=== PATIENT | female | born 1950 | race Caucasian/White ===

== ENCOUNTER 2017-06-07 19:04 | Emergency (ER) | payer BC, MEDICARE ==
[2017-06-07] MEDS ORDERED: RX INFO: IV CONTRAST WAS GIVEN 1 EACH MISC MISCELLANE PRN (20:21)
--- NOTE | 2017-06-07 20:26 | ED ---
Trauma HPI - General Chief Complaint: Trauma Stated Complaint: Kicked by Horse Time Seen by Provider: 06/07/17 19:57 Source: patient Mode of arrival: ambulatory Limitations: no limitations - History of Present Illness Initial Comments: This patient is a 61-year-old woman who presents to be evaluated after she was kicked by a horse. The patient states that around 12:30 she was crossing behind her horse and it kicked her in the upper abdomen. She states that she was thrown backwards and did impact the wall of the stall. She did not have loss of consciousness. She is complaining of pain to the bilateral upper quadrants of the abdomen. She is rating the pain as moderately intense, constant, worse with palpation of the abdomen. She has not noted relieving factors. She did take a "222", which is a combination medication of aspirin and codeine, without having much relief. MD Complaint: other Onset/Timin -: hour(s) Loss of Consciousness: no Location: abdomen Consistency: constant Context: animal related injury Associated Symptoms: denies other symptoms Treatments Prior to Arrival: other (222) - Related Data Previous Rx's Medication Instructions Recorded Hydrocodone/Acetaminophen [[place] 1 each PO Q6HR PRN #12 tab 06/07/17 5-325] Allergies Allergy/AdvReac Type Severity Reaction Status Date / Time ibuprofen [From Motrin] Allergy Unknown Verified 06/07/17 19:33 oxaprozin [From Daypro] Allergy Unknown Verified 06/07/17 19:33 Penicillins Allergy Unknown Verified 06/07/17 19:33 Review of Systems ROS Statement: Those systems with pertinent positive or pertinent negative responses have been documented in the HPI. ROS Other: All systems not noted in ROS Statement are negative. Constitutional: Denies: fever, weakness Eyes: Denies: eye pain, vision change ENT: Denies: epistaxis Respiratory: Denies: cough, dyspnea Cardiovascular: Denies: chest pain, palpitations, syncope Gastrointestinal: Reports: abdominal pain. Denies: nausea, vomiting, diarrhea, constipation Genitourinary: Denies: dysuria, hematuria Musculoskeletal: Denies: back pain Skin: Denies: rash Neurological: Denies: headache, weakness, numbness Hematological/Lymphatic: Denies: easy bleeding Past Medical History Past Medical History: No Reported History History of Any Multi-Drug Resistant Organisms: None Reported Past Surgical History: Cholecystectomy, Heart Catheterization With Stent Past Psychological History: Anxiety Smoking Status: Never smoker Past Alcohol Use History: None Reported Past Drug Use History: None Reported General Exam Limitations: no limitations General appearance: alert, in no apparent distress Head exam: Present: atraumatic, normocephalic, normal inspection Eye exam: Present: normal appearance, PERRL, EOMI, scleral icterus, conjunctival injection. Absent: nystagmus ENT exam: Present: normal oropharynx, mucous membranes moist, TM's normal bilaterally, normal external ear exam Neck exam: Present: normal inspection, full ROM. Absent: tenderness Respiratory exam: Present: normal lung sounds bilaterally. Absent: respiratory distress, wheezes, rales, rhonchi, stridor, chest wall tenderness Cardiovascular Exam: Present: regular rate, normal rhythm, normal heart sounds. Absent: systolic murmur, diastolic murmur, rubs, gallop GI/Abdominal exam: Present: soft, tenderness (Bilateral upper quadrants), normal bowel sounds. Absent: distended, guarding, rebound, rigid, mass, pulsatile mass, hernia Extremities exam: Present: normal inspection, normal capillary refill. Absent: pedal edema, calf tenderness Back exam: Present: normal inspection. Absent: tenderness, CVA tenderness (R), CVA tenderness (L), paraspinal tenderness, vertebral tenderness Neurological exam: Present: alert, oriented X3, CN II-XII intact. Absent: motor sensory deficit Skin exam: Present: warm, dry, intact, normal color. Absent: rash Course Vital Signs 06/07/17 06/07/17 06/07/17 19:28 21:13 22:37 Temperature 98.2 F Pulse Rate 85 77 72 Respiratory 18 18 16 Rate Blood Pressure 175/76 154/78 162/82 O2 Sat by Pulse 98 98 96 Oximetry 06/07/17 23:02 Temperature 98.3 F Pulse Rate 83 Respiratory 16 Rate Blood Pressure 159/76 O2 Sat by Pulse 96 Oximetry Medical Decision Making - Lab Data Result diagrams: 06/07/17 20:34 06/07/17 20:34 Lab Results 06/07/17 06/07/17 06/07/17 Range/Units 20:34 20:34 20:34 WBC 8.2 (3.8-10.6) k/uL RBC 4.85 (3.80-5.40) m/uL Hgb 14.6 (11.4-16.0) gm/dL Hct 42.5 (34.0-46.0) % MCV 87.7 (80.0-100.0) fL MCH 30.1 (25.0-35.0) pg MCHC 34.3 (31.0-37.0) g/dL RDW 13.2 (11.5-15.5) % Plt Count 226 (150-450) k/uL Neutrophils % 73 % Lymphocytes % 20 % Monocytes % 4 % Eosinophils % 1 % Basophils % 0 % Neutrophils # 5.9 (1.3-7.7) k/uL Lymphocytes # 1.6 (1.0-4.8) k/uL Monocytes # 0.4 (0-1.0) k/uL Eosinophils # 0.1 (0-0.7) k/uL Basophils # 0.0 (0-0.2) k/uL PT (9.0-12.0) sec INR (<1.2) APTT (22.0-30.0) sec Sodium 143 (137-145) mmol/L Potassium 4.0 (3.5-5.1) mmol/L Chloride 105 (98-107) mmol/L Carbon Dioxide 26 (22-30) mmol/L Anion Gap 12 mmol/L BUN 20 H (7-17) mg/dL Creatinine 0.60 (0.52-1.04) mg/dL Est GFR (CKD-EPI)AfAm >90 (>60 ml/min/1.73 sqM) Est GFR (CKD-EPI)NonAf >90 (>60 ml/min/1.73 sqM) Glucose 100 H (74-99) mg/dL Plasma Lactic Acid Bl[place] 0.8 (0.7-2.0) mmol/L Calcium 9.9 (8.4-10.2) mg/dL Total Bilirubin 0.9 (0.2-1.3) mg/dL AST 26 (14-36) U/L ALT 39 (9-52) U/L Alkaline Phosphatase 66 (38-126) U/L Troponin I (0.000-0.034) ng/mL Total Protein 6.7 (6.3-8.2) g/dL Albumin 4.4 (3.5-5.0) g/dL Urine Color Urine Appearance (Clear) Urine pH (5.0-8.0) Ur Specific [place] (1.001-1.035) Urine Protein (Negative) Urine Glucose (UA) (Negative) Urine Ketones (Negative) Urine Blood (Negative) Urine Nitrite (Negative) Urine Bilirubin (Negative) Urine Urobilinogen (<2.0) mg/dL Ur Leukocyte Esterase (Negative) Serum Alcohol <10 mg/dL Blood Type Blood Type Confirm Blood Type Recheck Antibody Screen Spec Expiration Date 06/07/17 06/07/17 06/07/17 Range/Units 20:34 20:34 20:34 WBC (3.8-10.6) k/uL RBC (3.80-5.40) m/uL Hgb (11.4-16.0) gm/dL Hct (34.0-46.0) % MCV (80.0-100.0) fL MCH (25.0-35.0) pg MCHC (31.0-37.0) g/dL RDW (11.5-15.5) % Plt Count (150-450) k/uL Neutrophils % % Lymphocytes % % Monocytes % % Eosinophils % % Basophils % % Neutrophils # (1.3-7.7) k/uL Lymphocytes # (1.0-4.8) k/uL Monocytes # (0-1.0) k/uL Eosinophils # (0-0.7) k/uL Basophils # (0-0.2) k/uL PT 9.8 (9.0-12.0) sec INR 1.0 (<1.2) APTT 25.7 (22.0-30.0) sec Sodium (137-145) mmol/L Potassium (3.5-5.1) mmol/L Chloride (98-107) mmol/L Carbon Dioxide (22-30) mmol/L Anion Gap mmol/L BUN (7-17) mg/dL Creatinine (0.52-1.04) mg/dL Est GFR (CKD-EPI)AfAm (>60 ml/min/1.73 sqM) Est GFR (CKD-EPI)NonAf (>60 ml/min/1.73 sqM) Glucose (74-99) mg/dL Plasma Lactic Acid [place] (0.7-2.0) mmol/L Calcium (8.4-10.2) mg/dL Total Bilirubin (0.2-1.3) mg/dL AST (14-36) U/L ALT (9-52) U/L Alkaline Phosphatase (38-126) U/L Troponin I <0.012 (0.000-0.034) ng/mL Total Protein (6.3-8.2) g/dL Albumin (3.5-5.0) g/dL Urine Color Urine Appearance (Clear) Urine pH (5.0-8.0) Ur Specific [place] (1.001-1.035) Urine Protein (Negative) Urine Glucose (UA) (Negative) Urine Ketones (Negative) Urine Blood (Negative) Urine Nitrite (Negative) Urine Bilirubin (Negative) Urine Urobilinogen (<2.0) mg/dL Ur Leukocyte Esterase (Negative) Serum Alcohol mg/dL Blood Type A Positive Blood Type Confirm Blood Type Recheck CABO Indicated Antibody Screen NEGATIVE Spec Expiration Date 06/10/2017233306/07/17 06/07/17 Range/Units 20:35 21:42 WBC (3.8-10.6) k/uL RBC (3.80-5.40) m/uL Hgb (11.4-16.0) gm/dL Hct (34.0-46.0) % MCV (80.0-100.0) fL MCH (25.0-35.0) pg MCHC (31.0-37.0) g/dL RDW (11.5-15.5) % Plt Count (150-450) k/uL Neutrophils % % Lymphocytes % % Monocytes % % Eosinophils % % Basophils % % Neutrophils # (1.3-7.7) k/uL Lymphocytes # (1.0-4.8) k/uL Monocytes # (0-1.0) k/uL Eosinophils # (0-0.7) k/uL Basophils # (0-0.2) k/uL PT (9.0-12.0) sec INR (<1.2) APTT (22.0-30.0) sec Sodium (137-145) mmol/L Potassium (3.5-5.1) mmol/L Chloride (98-107) mmol/L Carbon Dioxide (22-30) mmol/L Anion Gap mmol/L BUN (7-17) mg/dL Creatinine (0.52-1.04) mg/dL Est GFR (CKD-EPI)AfAm (>60 ml/min/1.73 sqM) Est GFR (CKD-EPI)NonAf (>60 ml/min/1.73 sqM) Glucose (74-99) mg/dL Plasma Lactic Acid [place] (0.7-2.0) mmol/L Calcium (8.4-10.2) mg/dL Total Bilirubin (0.2-1.3) mg/dL AST (14-36) U/L ALT (9-52) U/L Alkaline Phosphatase (38-126) U/L Troponin I (0.000-0.034) ng/mL Total Protein (6.3-8.2) g/dL Albumin (3.5-5.0) g/dL Urine Color Light Yellow Urine Appearance Clear (Clear) Urine pH 6.5 (5.0-8.0) Ur Specific [place] 1.014 (1.001-1.035) Urine Protein Negative (Negative) Urine Glucose (UA) Negative (Negative) Urine Ketones Negative (Negative) Urine Blood Negative (Negative) Urine Nitrite Negative (Negative) Urine Bilirubin Negative (Negative) Urine Urobilinogen <2.0 (<2.0) mg/dL Ur Leukocyte Esterase Negative (Negative) Serum Alcohol mg/dL Blood Type Blood Type Confirm A Positive Blood Type Recheck Antibody Screen Spec Expiration Date - EKG Data -: EKG Interpreted by [place] EKG shows normal: sinus rhythm, axis (Normal), intervals (Normal), QRS complexes (Normal), ST-T waves (Normal) Rate: normal (Rate 73 bpm) Interpretation: normal EKG Disposition Clinical Impression: Injury to abdominal wall, Mass of uterine adnexa Disposition: HOME SELF-CARE Condition: Fair Instructions: Blunt Abdominal Injury (ED) Additional Instructions: As we discussed, follow-up with the can bander operator for further workup of the adnexal mass that we discussed. Prescriptions: Hydrocodone/Acetaminophen [[place] 5-325] 1 each PO Q6HR PRN #12 tab PRN Reason: Pain Is patient prescribed a controlled substance at d/c from ED?: Yes Referrals: None,Stated [REFERRING] - 1-2 days Cristela Olson DO [Doctor of Osteopathic Medicine] - 1-2 days
[2017-06-07 20:46] LABS: Basophils % (A) 0 %; Eosinophils # (A) 0.1 k/uL (0-0.7); Eosinophils % (A) 1 %; HCT 42.5 % (34.0-46.0); HGB 14.6 gm/dL (11.4-16.0); Lymphocytes # (A) 1.6 k/uL (1.0-4.8); Lymphocytes % (A) 20 %; MCH 30.1 pg (25.0-35.0); MCHC 34.3 g/dL (31.0-37.0); MCV 87.7 fL (80.0-100.0); Mean Platelet Volume 7.4; Monocytes # (A) 0.4 k/uL (0-1.0); Monocytes % (A) 4 %; Neutrophils # (A) 5.9 k/uL (1.3-7.7); Neutrophils % (A) 73 %; Platelet Count 226 k/uL (150-450); RBC 4.85 m/uL (3.80-5.40); RDW 13.2 % (11.5-15.5); WBC 8.2 k/uL (3.8-10.6)
[2017-06-07 20:54] LABS: ALT 39 U/L (9-52); AST 26 U/L (14-36); Albumin 4.4 g/dL (3.5-5.0); Alcohol <10 mg/dL; Alkaline Phosphatase 66 U/L (38-126); Anion Gap 12 mmol/L; Blood Urea Nitrogen 20 mg/dL (7-17); Calcium 9.9 mg/dL (8.4-10.2); Carbon Dioxide 26 mmol/L (22-30); Chloride 105 mmol/L (98-107); Glucose 100 mg/dL (74-99); Partial Thromboplastin Time 25.7 sec (22.0-30.0); Prothrombin Time 9.8 sec (9.0-12.0); Sodium 143 mmol/L (137-145); Total Bilirubin 0.9 mg/dL (0.2-1.3); Total Protein 6.7 g/dL (6.3-8.2)
[2017-06-07 21:52] LABS: Appearance,Urine Clear (Clear); Bilirubin,Urine Negative (Negative); Blood,Urine Negative (Negative); Color,Urine Light Yellow; Glucose,Urine (UA) Negative (Negative); Ketones,Urine Negative (Negative); Leukocyte Esterase,Urine Negative (Negative); Nitrite,Urine Negative (Negative); PH, Urine 6.5 (5.0-8.0); Protein,Urine Negative (Negative); Specific Gravity,Urine 1.014 (1.001-1.035); Urobilinogen,Urine <2.0 mg/dL (<2.0)
--- NOTE | 2017-06-07 22:01 | CT ---
EXAMINATION TYPE: CT abdomen pelvis w con DATE OF EXAM: 06/07/2017 COMPARISON: NONE HISTORY: Mid to lower abdominal pain. CT DLP: 1417 mGycm Automated exposure control for dose reduction was used. TECHNIQUE: Helical acquisition of images was performed from the lung bases through the pelvis. CONTRAST: Performed without Oral Contrast and with IV Contrast, patient injected with 100 mL of Isovue 300. FINDINGS: LUNG BASES: No significant abnormality is appreciated. LIVER/GB: Liver is unremarkable. Surgical clips are identified in the gallbladder fossa. PANCREAS: No significant abnormality is seen. SPLEEN: No significant abnormality is seen. ADRENALS: No significant abnormality is seen. KIDNEYS: No significant abnormality is seen. FREE AIR: No free air is visualized. RETROPERITONEAL ADENOPATHY: None visualized REPRODUCTIVE ORGANS: There is a heterogeneous cystic and solid enhancing mass arising from the superi or right aspect of the uterus. This mass measures 9.0 x 7.0 cm. URINARY BLADDER: No significant abnormality is seen. OSSEOUS STRUCTURES: No significant abnormality is seen. BOWEL: No significant abnormality is seen. OTHER: IMPRESSION: HETEROGENEOUS CYSTIC AND SOLID ENHANCING MASS ARISING FROM THE SUPERIOR ASPECT OF THE UTERUS FELT TO BE A NEOPLASM.
[2017-06-07] MEDS ORDERED: HYDROcodone/APAP 7.5-325MG 1 EACH TAB PO ONE (22:34)
[2017-06-07 22:38] VITALS: RESP 16
[2017-06-07 23:03] VITALS: BP 159/76; PULSE 83; TEMP 98.3
== END 2017-06-07 23:02 | disposition home or self-care (01) ==
LOC: EDBD → EC 19:04
DX: S39.91XA Unspecified injury of abdomen, initial encounter (principal); N85.8 Other specified noninflammatory disorders of uterus; Z88.0 Allergy status to penicillin; Z88.6 Allergy status to analgesic agent; Z90.49 Acquired absence of other specified parts of digestive tract; W55.12XA Struck by horse, initial encounter; Y93.89 Activity, other specified
CPT/HCPCS: 36415; 93005; 86900; 86901; 80053; 83605; 84484; 85025; 85610; 85730; 86850; 81003; 80320; 74177; 99284; Q9967

== ENCOUNTER 2023-05-22 19:46 | Emergency (ER) | payer MEDICARE ==
[2023-05-22 21:24] LABS: Basophils % (A) 0 %; Eosinophils # (A) 0.1 k/uL (0-0.7); Eosinophils % (A) 1 %; HCT 46.6 % (34.0-46.0); HGB 15.1 gm/dL (11.4-16.0); Lymphocytes # (A) 1.8 k/uL (1.0-4.8); Lymphocytes % (A) 22 %; MCH 30.3 pg (25.0-35.0); MCHC 32.5 g/dL (31.0-37.0); MCV 93.4 fL (80.0-100.0); Mean Platelet Volume 7.9; Monocytes # (A) 0.4 k/uL (0-1.0); Monocytes % (A) 4 %; Neutrophils # (A) 5.8 k/uL (1.3-7.7); Neutrophils % (A) 72 %; Platelet Count 219 k/uL (150-450); RBC 4.99 m/uL (3.80-5.40); RDW 13.3 % (11.5-15.5); WBC 8.1 k/uL (3.8-10.6)
[2023-05-22 21:42] LABS: ALT 22 U/L (4-34); AST 26 U/L (14-36); African American GFR (CKD) >90 (>60 ml/min/1.73 sqM); Albumin 4.9 g/dL (3.5-5.0); Alkaline Phosphatase 84 U/L (38-126); Anion Gap 8 mmol/L; Blood Urea Nitrogen 14 mg/dL (7-17); Calcium 10.4 mg/dL (8.4-10.2); Carbon Dioxide 26 mmol/L (22-30); Chloride 107 mmol/L (98-107); Glucose 99 mg/dL (74-99); Non-African American GFR(CKD) >90 (>60 ml/min/1.73 sqM); Potassium 4.1 mmol/L (3.5-5.1); Sodium 141 mmol/L (137-145); Total Bilirubin 1.4 mg/dL (0.2-1.3); Total Protein 7.5 g/dL (6.3-8.2)
[2023-05-22 23:18] LABS: Appearance,Urine Clear (Clear); Bacteria,Urine Rare /hpf; Bilirubin,Urine Negative (Negative); Blood,Urine Negative (Negative); Color,Urine Yellow; Glucose,Urine (UA) Negative (Negative); Hyaline Casts,Urine 3 /lpf (0-2); Ketones,Urine 1+ (Negative); Leukocyte Esterase,Urine Trace (Negative); Mucus,Urine Moderate /hpf; Nitrite,Urine Negative (Negative); Protein,Urine Trace (Negative); RBC,Urine 2 /hpf (0-5); Specific Gravity,Urine 1.021 (1.001-1.035); Squamous Epithelial Cell,Urine <1 /hpf (0-4); Urobilinogen,Urine <2.0 mg/dL (<2.0); WBC,Urine 2 /hpf (0-5)
[2023-05-22 23:44] LABS: Amphetamine Screen,Urine Not Detected (NotDetected); Barbiturate Screen,Urine Not Detected (NotDetected); Benzodiazepines Screen,Urine Not Detected (NotDetected); Cocaine Screen,Urine Not Detected (NotDetected); Methadone Screen, Urine Not Detected (NotDetected); Opiate Screen,Urine Not Detected (NotDetected); Oxycodone Screen, Urine Not Detected (NotDetected); Phencyclidine Screen,Urine Not Detected (NotDetected); Tricyclic Antidepressant,Urine Not Detected (NotDetected); Urn Cannabinoid Scrn Not Detected (NotDetected)
--- NOTE | 2023-05-23 02:02 | ED ---
Psych HPI - General Source: patient Mode of arrival: ambulatory <Martha Ramirez - Last Filed: 05/23/23 02:04> <Chadd Solano - Last Filed: 05/24/23 16:13> - General Chief Complaint: Psychiatric Symptoms Stated Complaint: Mental health Time Seen by Provider: 05/22/23 20:15 - History of Present Illness Initial Comments: 73-year-old female brought in by her sister for mental health evaluation. Patient has been paranoid recently. She believes that people are trying to break into her house or barn. She has called the police several times this week due to this. Patient's sister received a call from the police voicing no concerns. The patient's sister decided to bring her in for evaluation. She has no history of psychiatric illnesses. The patient has manage she is not sleeping well or eating much. Patient denies any suicidal or homicidal ideation. No physical complaints today (Martha Ramirez) - Related Data Home Medications Medication Instructions Recorded Confirmed No Known Home Medications 05/23/23 05/23/23 Allergies Allergy/AdvReac Type Severity Reaction Status Date / Time ibuprofen [From Motrin] Allergy Face Verified 05/23/23 15:54 Swelling oxaprozin [From Daypro] Allergy Unknown Verified 05/23/23 15:54 Penicillins Allergy Face Verified 05/23/23 15:54 Swelling Review of Systems ROS Other: All systems not noted in ROS Statement are negative. <Martha Ramirez - Last Filed: 05/23/23 02:04> ROS Other: All systems not noted in ROS Statement are negative. <Chadd Solano - Last Filed: 05/24/23 16:13> ROS Statement: Those systems with pertinent positive or pertinent negative responses have been documented in the HPI. Past Medical History Past Medical History: No Reported History History of Any Multi-Drug Resistant Organisms: None Reported Past Surgical History: Cholecystectomy, Heart Catheterization With Stent Past Psychological History: Anxiety Smoking Status: Never smoker Past Alcohol Use History: None Reported Past Drug Use History: None Reported <Martha Ramirez - Last Filed: 05/23/23 02:04> General Exam Limitations: no limitations General appearance: alert, in no apparent distress Head exam: Present: atraumatic, normocephalic Eye exam: Present: normal appearance, EOMI Neck exam: Present: normal inspection. Absent: meningismus Respiratory exam: Absent: respiratory distress Cardiovascular Exam: Present: regular rate Neurological exam: Present: alert, oriented X3 Psychiatric exam: Present: normal affect, normal mood Skin exam: Present: warm, dry <Martha Ramirez - Last Filed: 05/23/23 02:04> Course Vital Signs 05/22/23 05/22/23 05/23/23 19:57 23:09 04:00 Temperature 98 F 98.0 F Pulse Rate 96 77 80 Respiratory 20 18 15 Rate Blood Pressure 181/101 181/79 172/75 O2 Sat by Pulse 97 96 97 Oximetry 05/23/23 15:28 Temperature 98.2 F Pulse Rate 52 L Respiratory 14 Rate Blood Pressure 174/82 O2 Sat by Pulse 97 Oximetry Medical Decision Making - Lab Data Result diagrams: 05/22/23 21:16 05/22/23 21:16 <Martha Ramirez - Last Filed: 05/23/23 02:04> - Lab Data Result diagrams: 05/22/23 21:16 05/22/23 21:16 <Chadd Solano - Last Filed: 05/24/23 16:13> - Medical Decision Making Was pt. sent in by a medical professional or institution (, PA, INSERT MOLDING OPERATOR, urgent care, hospital, or [facility]...) When possible be specific @ -No Did you speak to anyone other than the patient for history (EMS, parent, family, police, friend...)? What history was obtained from this source @ -Majority of history obtained from sister Did you review nursing and triage notes (agree or disagree)? Why? @ -I reviewed and agree with nursing and triage notes Were old charts reviewed (outside hosp., previous admission, EMS record, old EKG, old radiological studies, urgent care reports/EKG's, [facility] records)? Report findings @ -No old charts were reviewed Differential Diagnosis (chest pain, altered mental status, abdominal pain women, abdominal pain men, vaginal bleeding, weakness, fever, dyspnea, syncope, headache, dizziness, GI bleed, back pain, seizure, CVA, palpatations, mental health, musculoskeletal)? @ -Differential Mental Health Depression, anxiety, bipolar, psychosis, schizophrenia, borderline personality, situational depression, adjustment disorder, behavioral disorder, brain tumor, malingering, substance abuse, encephalopathy, medication reaction, dementia, hypothyroidism, degenerative neurologic disorder, lupus.... This is not meant to be all-inclusive list EKG interpreted by me (3pts min.). @ -As above X-rays interpreted by me (1pt min.). @ -None done CT interpreted by me (1pt min.). @ -None done U/S interpreted by me (1pt. min.). @ -None done What testing was considered but not performed or refused? (CT, X-rays, U/S, labs)? Why? @ -None What meds were considered but not given or refused? Why? @ -None Did you discuss the management of the patient with other professionals (professionals i.e. , PA, INSERT MOLDING OPERATOR, lab, RT, psych nurse, high school social studies tutor, application integration specialist, teacher, v/stol landing signal officer, director of casework)? Give summary @ -No Was smoking cessation discussed for >3mins.? @ -No Was critical care preformed (if so, how long)? @ -No Were there social determinants of health that impacted care today? How? (Homelessness, low income, unemployed, alcoholism, drug addiction, transportation, low edu. Level, literacy, decrease access to med. care, group home, rehab)? @ -No Was there de-escalation of care discussed even if they declined (Discuss DNR or withdrawal of care, Hospice)? DNR status @ -No What co-morbidities impacted this encounter? (DM, HTN, Smoking, COPD, CAD, Cancer, CVA, ARF, Chemo, Hep., AIDS, mental health diagnosis, sleep apnea, morbid obesity)? @ -None Was patient admitted / discharged? Hospital course, mention meds given and route, prescriptions, significant lab abnormalities, going to OR and other pertinent info. @ -73-year-old female presenting for mental health evaluation. Patient was brought in by her sister. Sister reports that the patient has been increasingly paranoid recently. History and physical exam are conducted. Lab work requires no action. Patient is medically cleared and is awaiting evaluation by EPS in the morning. Patient signed out to my attending. (Martha Ramirez) Was patient admitted / discharged? Hospital course, mention meds given and route, prescriptions, significant lab abnormalities, going to OR and other pertinent info. @ -Patient was signed out to me at 7 AM this morning. I went back into reevaluate the patient I spoke with her she does seem to be paranoid I spoke with EPS they agreed that the patient needs to be admitted patient will be tr shavonferred. I did a clinical certification on this patient. Undiagnosed new problem with uncertain prognosis? @ -No Drug Therapy requiring intensive monitoring for toxicity (Heparin, Nitro, Insulin, Cardizem)? @ -No Were any procedures done? @ -No Diagnosis/symptom? @ -Acute psychosis Acute, or Chronic, or Acute on Chronic? @ -Acute Uncomplicated (without systemic symptoms) or Complicated (systemic symptoms)? @ -Default Side effects of treatment? @ -No Exacerbation, Progression, or Severe Exacerbation? @ -No Poses a threat to life or bodily function? How? (Chest pain, [place], [place], pneumonia, PE, COPD, DKA, ARF, appy, cholecystitis, CVA, Diverticulitis, Homicidal, Suicidal, threat to staff... and all critical care pts) @ -No EKG was done for transfer purposes it was interpreted by myself. EKG shows a sinus rhythm at 66 bpm parable 128 QRS 102 QT interval is 379 QTc is 392. Patient's EKG shows no ST segment ovation or depression (Chadd Solano) - Lab Data Lab Results 05/22/23 05/22/23 05/22/23 Range/Units 21:16 21:16 22:51 WBC 8.1 (3.8-10.6) k/uL RBC 4.99 (3.80-5.40) m/uL Hgb 15.1 (11.4-16.0) gm/dL Hct 46.6 H (34.0-46.0) % MCV 93.4 (80.0-100.0) fL MCH 30.3 (25.0-35.0) pg MCHC 32.5 (31.0-37.0) g/dL RDW 13.3 (11.5-15.5) % Plt Count 219 (150-450) k/uL MPV 7.9 Neutrophils % 72 % Lymphocytes % 22 % Monocytes % 4 % Eosinophils % 1 % Basophils % 0 % Neutrophils # 5.8 (1.3-7.7) k/uL Lymphocytes # 1.8 (1.0-4.8) k/uL Monocytes # 0.4 (0-1.0) k/uL Eosinophils # 0.1 (0-0.7) k/uL Basophils # 0.0 (0-0.2) k/uL Sodium 141 (137-145) mmol/L Potassium 4.1 (3.5-5.1) mmol/L Chloride 107 (98-107) mmol/L Carbon Dioxide 26 (22-30) mmol/L Anion Gap 8 mmol/L BUN 14 (7-17) mg/dL Creatinine 0.54 (0.52-1.04) mg/dL Est GFR (CKD-EPI)AfAm >90 (>60 ml/min/1.73 sqM) Est GFR (CKD-EPI)NonAf >90 (>60 ml/min/1.73 sqM) Glucose 99 (74-99) mg/dL Calcium 10.4 H (8.4-10.2) mg/dL Total Bilirubin 1.4 H (0.2-1.3) mg/dL AST 26 (14-36) U/L ALT 22 (4-34) U/L Alkaline Phosphatase 84 (38-126) U/L Total Protein 7.5 (6.3-8.2) g/dL Albumin 4.9 (3.5-5.0) g/dL Urine Color Yellow Urine Appearance Clear (Clear) Urine pH 6.0 (5.0-8.0) Ur Specific [place] 1.021 (1.001-1.035) Urine Protein Trace H (Negative) Urine Glucose (UA) Negative (Negative) Urine Ketones 1+ H (Negative) Urine Blood Negative (Negative) Urine Nitrite Negative (Negative) Urine Bilirubin Negative (Negative) Urine Urobilinogen <2.0 (<2.0) mg/dL Ur Leukocyte Esterase Trace H (Negative) Urine RBC 2 (0-5) /hpf Urine WBC 2 (0-5) /hpf Ur Squamous Epith Cells <1 (0-4) /hpf Urine Bacteria Rare H (None) /hpf Hyaline Casts 3 H (0-2) /lpf Urine Mucus Moderate H (None) /hpf Urine Opiates Screen Not Detected (NotDetected) Ur Oxycodone Screen Not Detected (NotDetected) Urine Methadone Screen Not Detected (NotDetected) Ur Barbiturates Screen Not Detected (NotDetected) U Tricyclic Antidepress Not Detected (NotDetected) Ur Phencyclidine Scrn Not Detected (NotDetected) Ur Amphetamines Screen Not Detected (NotDetected) U Methamphetamines Scrn Not Detected (NotDetected) U Benzodiazepines Scrn Not Detected (NotDetected) Urine Cocaine Screen Not Detected (NotDetected) U Marijuana (THC) Screen Not Detected (NotDetected) SARS-CoV-2 (PCR) (Not Detectd) 05/23/23 Range/Units 15:36 WBC (3.8-10.6) k/uL RBC (3.80-5.40) m/uL Hgb (11.4-16.0) gm/dL Hct (34.0-46.0) % MCV (80.0-100.0) fL MCH (25.0-35.0) pg MCHC (31.0-37.0) g/dL RDW (11.5-15.5) % Plt Count (150-450) k/uL MPV Neutrophils % % Lymphocytes % % Monocytes % % Eosinophils % % Basophils % % Neutrophils # (1.3-7.7) k/uL Lymphocytes # (1.0-4.8) k/uL Monocytes # (0-1.0) k/uL Eosinophils # (0-0.7) k/uL Basophils # (0-0.2) k/uL Sodium (137-145) mmol/L Potassium (3.5-5.1) mmol/L Chloride (98-107) mmol/L Carbon Dioxide (22-30) mmol/L Anion Gap mmol/L BUN (7-17) mg/dL Creatinine (0.52-1.04) mg/dL Est GFR (CKD-EPI)AfAm (>60 ml/min/1.73 sqM) Est GFR (CKD-EPI)NonAf (>60 ml/min/1.73 sqM) Glucose (74-99) mg/dL Calcium (8.4-10.2) mg/dL Total Bilirubin (0.2-1.3) mg/dL AST (14-36) U/L ALT (4-34) U/L Alkaline Phosphatase (38-126) U/L Total Protein (6.3-8.2) g/dL Albumin (3.5-5.0) g/dL Urine Color Urine Appearance (Clear) Urine pH (5.0-8.0) Ur Specific [place] (1.001-1.035) Urine Protein (Negative) Urine Glucose (UA) (Negative) Urine Ketones (Negative) Urine Blood (Negative) Urine Nitrite (Negative) Urine Bilirubin (Negative) Urine Urobilinogen (<2.0) mg/dL Ur Leukocyte Esterase (Negative) Urine RBC (0-5) /hpf Urine WBC (0-5) /hpf Ur Squamous Epith Cells (0-4) /hpf Urine Bacteria (None) /hpf Hyaline Casts (0-2) /lpf Urine Mucus (None) /hpf Urine Opiates Screen (NotDetected) Ur Oxycodone Screen (NotDetected) Urine Methadone Screen (NotDetected) Ur Barbiturates Screen (NotDetected) U Tricyclic Antidepress (NotDetected) Ur Phencyclidine Scrn (NotDetected) Ur Amphetamines Screen (NotDetected) U Methamphetamines Scrn (NotDetected) U Benzodiazepines Scrn (NotDetected) Urine Cocaine Screen (NotDetected) U Marijuana (THC) Screen (NotDetected) SARS-CoV-2 (PCR) Not Detected (Not Detectd) Disposition <Martha Ramirez - Last Filed: 05/23/23 02:04> <Chadd Solano - Last Filed: 05/24/23 16:13> Clinical Impression: Acute psychosis Disposition: TRANSFER TO PSYCH HOSP/UNIT Referrals: None,Stated [Primary Care Provider] - 1-2 days
--- NOTE | 2023-05-23 14:26 | CT ---
EXAMINATION TYPE: CT brain wo con CT DLP: 1095.4 mGycm, Automated exposure control for dose reduction was used. DATE OF EXAM: 05/23/2023 1:35 PM COMPARISON: None. CLINICAL INDICATION:Female, 73 years old with history of AMS, AMS TECHNIQUE: Brain: Axial CT images of the brain were obtained with coronal and sagittal reformats created and rev iewed. Contrast used: None. Oral contrast used: None. FINDINGS: Brain: Extra-axial spaces: No abnormal extra-axial fluid collections. Ventricular system: Within normal limits Cerebral parenchyma: No acute intraparenchymal hemorrhage or mass effect. The dangelo-white junction is well differentiated. Cerebellum: Unremarkable. Mass effect: No evidence of midline shift. Intracranial vasculature: Atherosclerotic calcifications of the intracranial vessels. Soft tissues: Normal. Calvarium/osseous structures: No depressed skull fracture. Paranasal sinuses and mastoid air cells: Mild scattered paranasal sinus disease. Visualized orbits: Orbital contents are intact. IMPRESSION: No acute intracranial process.
[2023-05-23 15:46] VITALS: BP 174/82; PULSE 52; RESP 14; TEMP 98.2
== END 2023-05-23 22:30 ==
LOC: EC 19:46
DX: F23 Brief psychotic disorder (principal); Z11.52 Encounter for screening for COVID-19; Z88.0 Allergy status to penicillin; Z88.6 Allergy status to analgesic agent
CPT/HCPCS: 36415; 70450; 80053; 80306; 81001; 82075; 85025; 87635; 93005; 99285

== ENCOUNTER 2023-06-11 23:49 | Inpatient (IN) | payer MEDICAID, MEDICARE ==
--- NOTE | 2023-06-12 03:10 | ED ---
Psych HPI - General Chief Complaint: Psychiatric Symptoms Stated Complaint: Alt mental\mental health Time Seen by Provider: 06/11/23 23:59 Source: family, EMS Mode of arrival: EMS Limitations: no limitations - History of Present Illness Initial Comments: This patient is a 73-year-old woman who is brought to have psychiatric evaluation. Most of the history comes from the patient's daughter. She states that the patient had recently been discharged from the hospital on psychiatric medication for problems with delusions. The patient did not take her medications after discharge and over the past couple days, worsening today, has been having delusional thought content. The patient had gone to a neighbor's home and would not return to her house. She told the neighbor that she thought that people were in her house. This went on for approximately 7 hours and eventually culminated in police being called and even the patient's own daughter could not persuade the patient to return home. MD Complaint: other Onset/Timin -: days(s) Associated Psychiatric Symptoms: racing thoughts, delusions History of same: Yes Quality: getting worse Improves With: none Worsens With: none Context: not taking psychiatric medications Associated Symptoms: denies other symptoms - Related Data Home Medications Medication Instructions Recorded Confirmed Cholecalciferol [Vitamin D3 (125 125 mcg PO DAILY 06/12/23 06/13/23 Mcg = 5000 Iu)] amLODIPine [Norvasc] 5 mg PO DAILY 06/12/23 06/13/23 Previous Rx's Medication Instructions Recorded OLANZapine [ZyPREXA] 5 mg PO HS #60 tab 06/17/23 Allergies Allergy/AdvReac Type Severity Reaction Status Date / Time ibuprofen [From Motrin] Allergy Face Verified 06/12/23 08:56 Swelling oxaprozin [From Daypro] Allergy Unknown Verified 06/12/23 08:56 Penicillins Allergy Face Verified 06/12/23 08:56 Swelling Review of Systems ROS Statement: Those systems with pertinent positive or pertinent negative responses have been documented in the HPI. ROS Other: All systems not noted in ROS Statement are negative. Constitutional: Denies: fever Respiratory: Denies: cough, dyspnea Cardiovascular: Denies: chest pain, palpitations, syncope Gastrointestinal: Denies: abdominal pain, vomiting, diarrhea Genitourinary: Denies: dysuria, hematuria Musculoskeletal: Denies: back pain Skin: Denies: rash Neurological: Denies: headache, weakness Psychiatric: Reports: other (Delusional thought content). Denies: depression, homicidal thoughts, suicidal thoughts Past Medical History Past Medical History: No Reported History History of Any Multi-Drug Resistant Organisms: None Reported Past Surgical History: Cholecystectomy, Heart Catheterization With Stent Past Psychological History: Anxiety Smoking Status: Never smoker Past Alcohol Use History: None Reported Past Drug Use History: None Reported General Exam Limitations: altered mental status General appearance: alert, in no apparent distress Head exam: Present: atraumatic, normocephalic Eye exam: Present: normal appearance. Absent: scleral icterus, conjunctival injection ENT exam: Present: normal oropharynx Neck exam: Present: normal inspection Respiratory exam: Present: normal lung sounds bilaterally. Absent: respiratory distress, wheezes, rales, rhonchi, stridor Cardiovascular Exam: Present: regular rate, normal rhythm, normal heart sounds. Absent: systolic murmur, diastolic murmur, rubs, gallop GI/Abdominal exam: Present: soft. Absent: distended, tenderness, guarding, rebound, rigid, mass Extremities exam: Present: normal inspection, normal capillary refill. Absent: pedal edema, calf tenderness Back exam: Present: normal inspection. Absent: CVA tenderness (R), CVA tenderness (L) Neurological exam: Present: alert, CN II-XII intact. Absent: motor sensory deficit Psychiatric exam: Present: manic, other (She does display disorganized thought processes and some paranoid delusional thought content.). Absent: homicidal ideation, suicidal ideation Skin exam: Present: warm, dry, intact, normal color. Absent: rash Course Vital Signs 06/11/23 06/12/23 23:50 09:05 Temperature 98.3 F Pulse Rate 70 92 Respiratory 18 18 Rate Blood Pressure 166/81 149/82 O2 Sat by Pulse 98 99 Oximetry Medical Decision Making - Medical Decision Making Was pt. sent in by a medical professional or institution (, PA, METAL FURNITURE PANEL COVERER, urgent care, hospital, or skilled nursing...) When possible be specific @ -[No] Did you speak to anyone other than the patient for history (EMS, parent, family, police, friend...)? What history was obtained from this source @ -Patient's daughter did contribute history Did you review nursing and triage notes (agree or disagree)? Why? @ -[I reviewed and agree with nursing and triage notes] Were old charts reviewed (outside hosp., previous admission, EMS record, old EKG, old radiological studies, urgent care reports/EKG's, skilled nursing records)? Report findings @ -[No old charts were reviewed] Differential Diagnosis (chest pain, altered mental status, abdominal pain women, abdominal pain men, vaginal bleeding, weakness, fever, dyspnea, syncope, headache, dizziness, GI bleed, back pain, seizure, CVA, palpatations, mental health, musculoskeletal)? @ -[Differential Mental Health Depression, anxiety, bipolar, psychosis, schizophrenia, borderline personality, situational depression, adjustment disorder, behavioral disorder, brain tumor, malingering, substance abuse, encephalopathy, medication reaction, dementia, hypothyroidism, degenerative neurologic disorder, lupus.... This is not meant to be all-inclusive list EKG interpreted by me (3pts min.). @ -[As above] X-rays interpreted by me (1pt min.). @ -[None done] CT interpreted by me (1pt min.). @ -[None done] U/S interpreted by me (1pt. min.). @ -[None done] What testing was considered but not performed or refused? (CT, X-rays, U/S, labs)? Why? @ -[None] What meds were considered but not given or refused? Why? @ -[None] Did you discuss the management of the patient with other professionals (professionals i.e. , PA, METAL FURNITURE PANEL COVERER, lab, RT, psych nurse, healthcare social worker, cognos bi developer, teacher, boat officer, case making machine operator)? Give summary @ -[Case discussed with EPS personnel who saw the patient and discussed with psychiatrist and arranging admission for patient at time of shift change Was smoking cessation discussed for >3mins.? @ -[No] Was critical care preformed (if so, how long)? @ -[No] Were there social determinants of health that impacted care today? How? (Homelessness, low income, unemployed, alcoholism, drug addiction, transportation, low edu. Level, literacy, decrease access to med. care, group home, rehab)? @ -[No] Was there de-escalation of care discussed even if they declined (Discuss DNR or withdrawal of care, Hospice)? DNR status @ -[No] What co-morbidities impacted this encounter? (DM, HTN, Smoking, COPD, CAD, Cancer, CVA, ARF, Chemo, Hep., AIDS, mental health diagnosis, sleep apnea, morbid obesity)? @ -[None] Was patient admitted / discharged? Hospital course, mention meds given and route, prescriptions, significant lab abnormalities, going to OR and other pertinent info. @ -[As above Undiagnosed new problem with uncertain prognosis? @ -[No] Drug Therapy requiring intensive monitoring for toxicity (Heparin, Nitro, Insulin, Cardizem)? @ -[No] Were any procedures done? @ -[No] Diagnosis/symptom? @ -[ acute psychosis Acute, or Chronic, or Acute on Chronic? @ -[d acute Uncomplicated (without systemic symptoms) or Complicated (systemic symptoms)? @ -[Uncomplicated Side effects of treatment? @ -[No] Exacerbation, Progression, or Severe Exacerbation? @ -[No] Poses a threat to life or bodily function? How? (Chest pain, USA, ME, pneumonia, PE, COPD, DKA, ARF, appy, cholecystitis, CVA, Diverticulitis, Homicidal, Suicidal, threat to staff... and all critical care pts) @ -[No] - Lab Data Result diagrams: 06/12/23 03:50 06/12/23 03:50 Lab Results 06/12/23 06/12/23 06/12/23 Range/Units 03:50 03:50 03:50 WBC 9.5 (3.8-10.6) k/uL RBC 5.04 (3.80-5.40) m/uL Hgb 15.4 (11.4-16.0) gm/dL Hct 46.3 H (34.0-46.0) % MCV 92.0 (80.0-100.0) fL MCH 30.6 (25.0-35.0) pg MCHC 33.2 (31.0-37.0) g/dL RDW 13.3 (11.5-15.5) % Plt Count 207 (150-450) k/uL MPV 7.9 Neutrophils % 72 % Lymphocytes % 21 % Monocytes % 4 % Eosinophils % 1 % Basophils % 1 % Neutrophils # 6.8 (1.3-7.7) k/uL Lymphocytes # 2.0 (1.0-4.8) k/uL Monocytes # 0.4 (0-1.0) k/uL Eosinophils # 0.1 (0-0.7) k/uL Basophils # 0.1 (0-0.2) k/uL Sodium 140 (137-145) mmol/L Potassium 4.0 (3.5-5.1) mmol/L Chloride 106 (98-107) mmol/L Carbon Dioxide 29 (22-30) mmol/L Anion Gap 5 mmol/L BUN 13 (7-17) mg/dL Creatinine 0.43 L (0.52-1.04) mg/dL Est GFR (CKD-EPI)AfAm >90 (>60 ml/min/1.73 sqM) Est GFR (CKD-EPI)NonAf >90 (>60 ml/min/1.73 sqM) Glucose 99 (74-99) mg/dL Calcium 10.4 H (8.4-10.2) mg/dL TSH 7.120 H (0.465-4.680) mIU/L Free T4 0.99 (0.78-2.19) ng/dL SARS-CoV-2 (PCR) (Not Detectd) 06/12/23 Range/Units 04:40 WBC (3.8-10.6) k/uL RBC (3.80-5.40) m/uL Hgb (11.4-16.0) gm/dL Hct (34.0-46.0) % MCV (80.0-100.0) fL MCH (25.0-35.0) pg MCHC (31.0-37.0) g/dL RDW (11.5-15.5) % Plt Count (150-450) k/uL MPV Neutrophils % % Lymphocytes % % Monocytes % % Eosinophils % % Basophils % % Neutrophils # (1.3-7.7) k/uL Lymphocytes # (1.0-4.8) k/uL Monocytes # (0-1.0) k/uL Eosinophils # (0-0.7) k/uL Basophils # (0-0.2) k/uL Sodium (137-145) mmol/L Potassium (3.5-5.1) mmol/L Chloride (98-107) mmol/L Carbon Dioxide (22-30) mmol/L Anion Gap mmol/L BUN (7-17) mg/dL Creatinine (0.52-1.04) mg/dL Est GFR (CKD-EPI)AfAm (>60 ml/min/1.73 sqM) Est GFR (CKD-EPI)NonAf (>60 ml/min/1.73 sqM) Glucose (74-99) mg/dL Calcium (8.4-10.2) mg/dL TSH (0.465-4.680) mIU/L Free T4 (0.78-2.19) ng/dL SARS-CoV-2 (PCR) Not Detected (Not Detectd) Disposition Clinical Impression: Acute psychosis Disposition: ADMITTED IP TO THIS [facility] Condition: Stable
[2023-06-12 04:10] LABS: Basophils # (A) 0.1 k/uL (0-0.2); Basophils % (A) 1 %; Eosinophils # (A) 0.1 k/uL (0-0.7); Eosinophils % (A) 1 %; HCT 46.3 % (34.0-46.0); HGB 15.4 gm/dL (11.4-16.0); Lymphocytes % (A) 21 %; MCH 30.6 pg (25.0-35.0); MCHC 33.2 g/dL (31.0-37.0); Mean Platelet Volume 7.9; Monocytes # (A) 0.4 k/uL (0-1.0); Monocytes % (A) 4 %; Neutrophils # (A) 6.8 k/uL (1.3-7.7); Neutrophils % (A) 72 %; Platelet Count 207 k/uL (150-450); RBC 5.04 m/uL (3.80-5.40); RDW 13.3 % (11.5-15.5); WBC 9.5 k/uL (3.8-10.6)
[2023-06-12 04:22] LABS: African American GFR (CKD) >90 (>60 ml/min/1.73 sqM); Anion Gap 5 mmol/L; Blood Urea Nitrogen 13 mg/dL (7-17); Calcium 10.4 mg/dL (8.4-10.2); Carbon Dioxide 29 mmol/L (22-30); Chloride 106 mmol/L (98-107); Glucose 99 mg/dL (74-99); Non-African American GFR(CKD) >90 (>60 ml/min/1.73 sqM); Sodium 140 mmol/L (137-145)
[2023-06-12] MEDS: ZIPRASIDONE 20 MG VIAL IM STA (04:34)
[2023-06-12] MEDS: LORazepam 2 MG/ML INJ IM STA (04:34)
[2023-06-12] MEDS ORDERED: LORazepam 1 MG TAB PO PRN (12:55)
[2023-06-12] MEDS ORDERED: HALOPERIDOL LACTATE 5 MG/ML 1 ML VIAL IM PRN (12:55)
[2023-06-12] MEDS ORDERED: haloperidoL 5 MG TAB PO PRN (12:55)
[2023-06-12] MEDS ORDERED: ACETAMINOPHEN TAB 325 MG TAB PO PRN (12:55)
[2023-06-12] MEDS ORDERED: MAG HYDROX/AL HYDROX/SIMETH 355 ML BOTTLE PO PRN (12:55)
[2023-06-12] MEDS ORDERED: LORazepam 2 MG/ML INJ IM PRN (12:55)
[2023-06-12] MEDS ORDERED: MAGNESIUM HYDROXIDE 2,400 MG/30 ML CUP PO PRN (12:55)
[2023-06-12 13:51] LABS: Appearance,Urine Clear (Clear); Bilirubin,Urine Negative (Negative); Blood,Urine Negative (Negative); Color,Urine Colorless; Glucose,Urine (UA) Negative (Negative); Ketones,Urine Negative (Negative); Leukocyte Esterase,Urine Trace (Negative); Mucus,Urine Few /hpf; Nitrite,Urine Negative (Negative); PH, Urine 6.5 (5.0-8.0); Protein,Urine Negative (Negative); RBC,Urine 1 /hpf (0-5); Specific Gravity,Urine 1.011 (1.001-1.035); Squamous Epithelial Cell,Urine <1 /hpf (0-4); Urobilinogen,Urine <2.0 mg/dL (<2.0); WBC,Urine 1 /hpf (0-5)
[2023-06-12 14:02] LABS: Amphetamine Screen,Urine Not Detected (NotDetected); Barbiturate Screen,Urine Not Detected (NotDetected); Benzodiazepines Screen,Urine Detected (NotDetected); Cocaine Screen,Urine Not Detected (NotDetected); Methadone Screen, Urine Not Detected (NotDetected); Opiate Screen,Urine Not Detected (NotDetected); Oxycodone Screen, Urine Not Detected (NotDetected); Phencyclidine Screen,Urine Not Detected (NotDetected); Tricyclic Antidepressant,Urine Not Detected (NotDetected); Urn Cannabinoid Scrn Not Detected (NotDetected)
[2023-06-12] MEDS: amLODIPine 5 MG TAB PO SCH (14:50)
[2023-06-12] MEDS: amLODIPine 10 MG TAB PO SCH (15:22)
[2023-06-12] MEDS: METOPROLOL SUCCINATE (ER) 50 MG TAB.ER.24H PO SCH (16:04)
[2023-06-12] MEDS: CHOLECALCIFEROL 125 MCG (5000 IU) TABLET PO SCH (16:04)
[2023-06-12] MEDS: QUEtiapine 25 MG TAB PO SCH (21:26)
--- NOTE | 2023-06-12 23:58 | P.CONS ---
History of Present Illness - Reason for Consult Consult date: 06/12/23 - History of Present Illness The patient is a 73-year-old female with a PMH of hypertension and anxiety who had presented to the emergency room accompanied by her family due to strange behavior. As per the patient's family members, she had reportedly been having delusions and was paranoid. She was admitted to the mental health unit where she was seen and evaluated. Patient reports that she has been worried about people trying to break into her house. She denied any physical complaints at the time of interview aside from bilateral lower extremity edema over the past several months. She denied experiencing chest discomfort, shortness breath, fever, chills, cough, nausea, vomiting, abdominal pain, diarrhea. She denied tobacco, alcohol, or substance use. Review of systems: Pertinent positives and negatives as discussed in HPI, a complete review of systems was performed and all other systems are negative. Physical examination: General: non toxic, no distress, appears at stated age, normal weight Derm: no unusual rashes/lesions, no unusual ecchymoses, warm, dry Head: atraumatic, normocephalic, symmetric Eyes: EOMI, no lid lag, anicteric sclera ENT: Nose and ears atraumatic, no thrush, no pharyngeal erythema Neck: trachea midline, supple Mouth: no lip lesion, mucus membranes moist Cardiovascular: S1S2 reg, no murmur, 1+ bilateral lower extremity pitting edema Lungs: CTA bilateral, no rhonchi, no rales , no accessory muscle use Abdominal: soft, nontender to palpation, no guarding Ext: no gross muscle atrophy, no contractures, bilateral lower extremity varicose veins noted Neuro: No gross focal neuro deficits noted Psych: Alert, oriented, paranoid affect Assessment: Bilateral lower extremity edema, likely secondary to varicose veins Chronic conditions: Hypertension Subclinical hypothyroidism Psychosis and paranoia Imaging: None performed Data Review: Laboratory evaluation was remarkable for unremarkable UA and urine toxicology with a TSH 7.120 and free T 0.99 with creatinine 0.43 Plan: Continue with patient's home medication of Norvasc Free T4 within normal limits Check pro-BNP levels Defer management of psychosis and paranoia to the primary psychiatry service Thank you for allowing us to participate in the care of this patient. We will follow peripherally. Do not hesitate to contact us with questions. Someone can be reached from the [facility] hospitalist group at all hours of the day at [phone]. Past Medical History Past Medical History: Hypertension History of Any Multi-Drug Resistant Organisms: None Reported Past Surgical History: Cholecystectomy, Heart Catheterization With Stent Past Anesthesia/Blood Transfusion Reactions: No Reported Reaction Date of Last Stent Placement:: unknown Past Psychological History: Anxiety Smoking Status: Never smoker Past Alcohol Use History: None Reported Past Drug Use History: None Reported Medications and Allergies Home Medications Medication Instructions Recorded Confirmed Type Cholecalciferol [Vitamin D3 (125 125 mcg PO DAILY 06/12/23 06/12/23 History Mcg = 5000 Iu)] Metoprolol Succinate [Toprol XL] 50 mg PO DAILY 06/12/23 06/12/23 History QUEtiapine XR [SEROquel XR] 50 mg PO HS 06/12/23 06/12/23 History amLODIPine [Norvasc] 5 mg PO DAILY 06/12/23 06/12/23 History cloNIDine 0.1 MG/24HR PATCH 1 patch TRANSDERM Q7D 06/12/23 06/12/23 History [Catapres-TTS] Allergies Allergy/AdvReac Type Severity Reaction Status Date / Time ibuprofen [From Motrin] Allergy Face Verified 06/12/23 08:56 Swelling oxaprozin [From Daypro] Allergy Unknown Verified 06/12/23 08:56 Penicillins Allergy Face Verified 06/12/23 08:56 Swelling Physical Exam Vitals: Vital Signs Temp Pulse Pulse Resp BP BP Pulse Ox 06/12/23 16:05 102 H 133/64 06/12/23 15:26 97.7 F 72 18 152/70 06/12/23 15:23 81 119/66 06/12/23 14:17 97.8 F 87 16 142/89 97 06/12/23 09:05 92 18 149/82 99 Intake and Output 06/12/23 06/12/23 06/13/23 14:59 22:59 06:59 Other: Weight 73.1 kg Results CBC & Chem 7: 06/12/23 03:50 06/12/23 03:50 Labs: Abnormal Lab Results - Last 24 Hours (Table) 06/12/23 06/12/23 06/12/23 Range/Units 03:50 03:50 13:14 Hct 46.3 H (34.0-46.0) % Creatinine 0.43 L (0.52-1.04) mg/dL Calcium 10.4 H (8.4-10.2) mg/dL TSH 7.120 H (0.465-4.680) mIU/L Ur Leukocyte Esterase Trace H (Negative) Urine Mucus Few H (None) /hpf U Benzodiazepines Scrn Detected H (NotDetected)
[2023-06-13 06:16] VITALS: RESP 20
[2023-06-13] MEDS ORDERED: OLANZapine 2.5 MG TAB PO PRN (11:45)
[2023-06-13] MEDS ORDERED: OLANZapine 10 MG VIAL IM PRN (11:45)
--- NOTE | 2023-06-13 11:46 | P.HP ---
Psychiatric H&P - . H&P Date: 06/13/23 History & Physical: Allergies Allergy/AdvReac Type Severity Reaction Status Date / Time ibuprofen from Motrin Allergy Face Verified 06/12/23 08:56 Swelling oxaprozin from Daypro Allergy Unknown Verified 06/12/23 08:56 Penicillins Allergy Face Verified 06/12/23 08:56 Swelling Vital Signs Temp 96.8 F L 06/13/23 06:01 Pulse 84 06/13/23 06:01 Resp 20 06/13/23 06:01 BP 135/74 06/13/23 06:01 Pulse Ox 98 06/13/23 06:01 FiO2 Intake & Output 06/12/23 06/13/23 06/13/23 18:59 06:59 18:59 Weight 73.1 kg Laboratory Last Values WBC 9.5 k/uL (3.8-10.6) 06/12/23 03:50 RBC 5.04 m/uL (3.80-5.40) 06/12/23 03:50 Hgb 15.4 gm/dL (11.4-16.0) 06/12/23 03:50 Hct 46.3 % (34.0-46.0) H 06/12/23 03:50 MCV 92.0 fL (80.0-100.0) 06/12/23 03:50 MCH 30.6 pg (25.0-35.0) 06/12/23 03:50 MCHC 33.2 g/dL (31.0-37.0) 06/12/23 03:50 RDW 13.3 % (11.5-15.5) 06/12/23 03:50 Plt Count 207 k/uL (150-450) 06/12/23 03:50 MPV 7.9 06/12/23 03:50 Neutrophils % 72 % 06/12/23 03:50 Lymphocytes % 21 % 06/12/23 03:50 Monocytes % 4 % 06/12/23 03:50 Eosinophils % 1 % 06/12/23 03:50 Basophils % 1 % 06/12/23 03:50 Neutrophils # 6.8 k/uL (1.3-7.7) 06/12/23 03:50 Lymphocytes # 2.0 k/uL (1.0-4.8) 06/12/23 03:50 Monocytes # 0.4 k/uL (0-1.0) 06/12/23 03:50 Eosinophils # 0.1 k/uL (0-0.7) 06/12/23 03:50 Basophils # 0.1 k/uL (0-0.2) 06/12/23 03:50 Sodium 140 mmol/L (137-145) 06/12/23 03:50 Potassium 4.0 mmol/L (3.5-5.1) 06/12/23 03:50 Chloride 106 mmol/L (98-107) 06/12/23 03:50 Carbon Dioxide 29 mmol/L (22-30) 06/12/23 03:50 Anion Gap 5 mmol/L 06/12/23 03:50 BUN 13 mg/dL (7-17) 06/12/23 03:50 Creatinine 0.43 mg/dL (0.52-1.04) L 06/12/23 03:50 Est GFR (CKD-EPI)AfAm >90 (>60 ml/min/1.73 sqM) 06/12/23 03:50 Est GFR (CKD-EPI)NonAf >90 (>60 ml/min/1.73 sqM) 06/12/23 03:50 Glucose 99 mg/dL (74-99) 06/12/23 03:50 Calcium 10.4 mg/dL (8.4-10.2) H 06/12/23 03:50 TSH 7.120 mIU/L (0.465-4.680) H 06/12/23 03:50 Free T4 0.99 ng/dL (0.78-2.19) 06/12/23 03:50 Urine Color Colorless 06/12/23 13:14 Urine Appearance Clear (Clear) 06/12/23 13:14 Urine pH 6.5 (5.0-8.0) 06/12/23 13:14 Ur Specific [place] 1.011 (1.001-1.035) 06/12/23 13:14 Urine Protein Negative (Negative) 06/12/23 13:14 Urine Glucose (UA) Negative (Negative) 06/12/23 13:14 Urine Ketones Negative (Negative) 06/12/23 13:14 Urine Blood Negative (Negative) 06/12/23 13:14 Urine Nitrite Negative (Negative) 06/12/23 13:14 Urine Bilirubin Negative (Negative) 06/12/23 13:14 Urine Urobilinogen <2.0 mg/dL (<2.0) 06/12/23 13:14 Ur Leukocyte Esterase Trace (Negative) H 06/12/23 13:14 Urine RBC 1 /hpf (0-5) 06/12/23 13:14 Urine WBC 1 /hpf (0-5) 06/12/23 13:14 Ur Squamous Epith Cells <1 /hpf (0-4) 06/12/23 13:14 Urine Mucus Few /hpf (None) H 06/12/23 13:14 Urine Opiates Screen Not Detected (NotDetected) 06/12/23 13:14 Ur Oxycodone Screen Not Detected (NotDetected) 06/12/23 13:14 Urine Methadone Screen Not Detected (NotDetected) 06/12/23 13:14 Ur Barbiturates Screen Not Detected (NotDetected) 06/12/23 13:14 U Tricyclic Antidepress Not Detected (NotDetected) 06/12/23 13:14 Ur Phencyclidine Scrn Not Detected (NotDetected) 06/12/23 13:14 Ur Amphetamines Screen Not Detected (NotDetected) 06/12/23 13:14 U Methamphetamines Scrn Not Detected (NotDetected) 06/12/23 13:14 U Benzodiazepines Scrn Detected (NotDetected) H 06/12/23 13:14 Urine Cocaine Screen Not Detected (NotDetected) 06/12/23 13:14 U Marijuana (THC) Screen Not Detected (NotDetected) 06/12/23 13:14 SARS-CoV-2 (PCR) Not Detected (Not Detectd) 06/12/23 04:40 06/13/23 11:21 IDENTIFYING DATA: Patient is a 73 yo female, currently lives alone in a house, she has no kids, she is single HPI: Patient presented to the hospital to the ER yesterday. Patient was recently discharged from [facility] over a week ago. Apparently patient h as not been taking medications according to petition filled out by her sister/guardian. Also states that patient has been agitated paranoid and went over to her neighbor's house for 7 hours and refused to leave. Patient was admitted involuntarily to the mental health unit. She was agreeable to speak with video game script writer today at the bedside. She claims that she has been having "poor memory" and was fairly loose and associations illogical. She had several things written down in her folder was looking through her belongings. She was tangential in her thought process disorganized. She claims that she was "just at [facility]" however did not remember who she saw there, does not remember what medication she on and does not believe that she has any kind of diagnosis or needs medications. She denied any depression or anxiety at this time. Is endorsing paranoia towards others. She is able to correctly identify her name, her location and the date. Was able to spell "world" backwards.. Patient denies any suicidal or homicidal ideations intent or plan. At this time patient denies any auditory or visual hallucinations. Patient denies any flight of ideas racing thoughts and increased in goal directed behavior. Patient admits to using no recreational drugs or cigarettes PAST PSYCHIATRIC HISTORY: Patient denies any previous psychiatric history. Patient was previously on Seroquel however has not been taking it. Patient was just psychiatrically admitted to [facility] in late May. Patient denies any psychiatric outpatient follow-up. Patient denies any history of suicide attempts in the past. Past Medical History: No Reported History History of Any Multi-Drug Resistant Organisms: None Reported Past Surgical History: Cholecystectomy, Heart Catheterization With Stent Past Psychological History: Anxiety Smoking Status: Never smoker Past Alcohol Use History: None Reported Past Drug Use History: None Reported ALLERGIES: as per EMR CHEMICAL DEPENDENCY HISTORY: as per HPI FAMILY PSYCHIATRIC/SUBSTANCE USE HISTORY: Denies SOCIAL HISTORY: Patient was born and raised in [place] [place] [facility]. States that she completed high school and completed her bachelor's degree. 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 Claims that she has never had any legal history. She is single, lives alone in a house, denies having any kids. MENTAL STATUS EXAM: General Appearance: Patient appears to be thin, long white hair, stated age is alert, difficult to redirect, bizarre at times. Patient appears to have fair hygiene and grooming. Behavior: Patient is seated without any agitated behavior. Speech: Patient's speech is fluent and nonpressured. Rambling, tangential Mood/Affect: Patient reports their mood is ok, affect is congruent and constricted. Suicidality/Homicidality: Patient denies having any homicidal ideation intent or plan. Denies any suicidal ideations intent or plan Perceptions: Patient denies any visual hallucinations and denies any auditory hallucinations Though content/process: Associations, illogical. Paranoia. Memory and concentration: AOX3, grossly intact for the purposes of this session. Can spell "WORLD" backwards Judgment and insight: Poor/limited STRENGTHS/WEAKNESSES: strength is that patient is resilient. Weakness is that patient has poor judgment and is impulsive, poor insight INTELLECT: Average IMPRESSIONS: Psychosis unspecified r/o major neurocognitive disorder PLAN: -Patient is admitted under involuntary status to MHU for stabilization of psychiatric symptoms and safety. Patient has not signed adult voluntary form and medication consent and is placed in patient's chart. A second certification was completed and along with petition will be filed for court. -Medications : Patient claims that she does not want to take Seroquel any longer as it is too sedating for her. Will start Prolixin 1 mg twice daily for psychosis/delusions/paranoia. Melatonin 3 mg nightly scheduled for sleep. -zyprexa PRN for agitation/aggression -Patient was informed of the risks, benefits and side effects of the medication -Internal Medicine consult to perform medical evaluation and physical. -NRT -not needed as patient does not smoke -SW on board for discharge planning. Encourage patient to participate in groups to work on coping skills. Will await deferral and court date. 06/13/23 11:39 06/13/23 11:46
[2023-06-13 13:44] LABS: Glucose,Whole Blood 97 mg/dL (70-110)
[2023-06-13 14:27] VITALS: BP 139/72; PULSE 70; TEMP 97.2
[2023-06-13] MEDS ORDERED: MELATONIN 3 MG TABLET PO SCH (21:00)
[2023-06-13] MEDS ORDERED: haloperidoL 1 MG TAB PO SCH (21:00)
[2023-06-13 23:09] LABS: Chol/HDL Ratio 2.33 Ratio; LDL Cholesterol,Calculated 90.2 mg/dL (0.0-131.0); VLDL Calculation 14.36 mg/dL (5.00-40.00)
--- NOTE | 2023-06-15 13:28 | P.DS ---
Providers Date of admission: 06/12/23 12:41 Expected date of discharge: 06/13/23 Attending physician: Daryl Soto MD Consults: 06/12/23 12:55 Consult Physician Routine Consulting Provider: Batool Sullivan Consult Reason/Comments: Medical H&P Do you want consulting provider notified?: Yes Primary care physician: Stated None Hospital Course: Admission HPI: Admission note was completed by fiction writer "patient is a 73 yo female, currently lives alone in a house, she has no kids, she is single. Patient presented to the hospital to the ER yesterday. Patient was recently discharged from [facility] over a week ago. Apparently patient has not been taking medications according to petition filled out by her sister/guardian. Also states that patient has been agitated paranoid and went over to her neighbor's house for 7 hours and refused to leave. Patient was admitted involuntarily to the mental health unit. She was agreeable to speak with fiction writer today at the bedside. She claims that she has been having "poor memory" and was fairly loose and associations illogical. She had several things written down in her folder was looking through her belongings. She was tangential in her thought process disorganized. She claims that she was "just at [facility]" however did not remember who she saw there, does not remember what medication she on and does not believe that she has any kind of diagnosis or needs medications. She denied any depression or anxiety at this time. Is endorsing paranoia towards others. She is able to correctly identify her name, her location and the date. Was able to spell "world" backwards.. Patient denies any suicidal or homicidal ideations intent or plan. At this time patient denies any auditory or visual hallucinations. Patient denies any flight of ideas racing thoughts and increased in goal directed behavior. Patient admits to using no recreational drugs or cigarettes" Hospital course: Upon admission to the unit patient was admitted involuntarily on a petition and certificate and a second certificate was completed and faxed to the courts. Patient ended up signing a deferral with the tax associate attorney and agreeing to treatment. Patient was seen by fiction writer and evaluated and agreeable to try Prolixin p.o. 1 mg twice daily, patient was directable and ended up taking the medication. About an hour or so after taking the medication patient became lightheaded in the dining room and almost fell, she was fairly confused, vital sign instability, and A team was called and patient ended up being transferred to the medical floors for further treatment and monitoring. Mental status exam: As per fiction writer's H&P written on 06/12 Impression: As per fiction writer's H&P written on 06/12 Plan: Patient was discharged today and transferred directly to the medical floors for further monitoring and treatment due to patient's vital sign instability and lightheadedness. Psychiatry will be consulted and will continue to follow along. Patient Condition at Discharge: Stable Plan - Discharge Summary Discharge Rx Participant: No New Discharge Prescriptions: No Action QUEtiapine XR [SEROquel XR] 50 mg PO HS Cholecalciferol [Vitamin D3 (125 Mcg = 5000 Iu)] 125 mcg PO DAILY cloNIDine 0.1 MG/24HR PATCH [Catapres-TTS] 1 patch TRANSDERM Q7D amLODIPine [Norvasc] 5 mg PO DAILY Metoprolol Succinate [Toprol XL] 50 mg PO DAILY Discharge Medication List Cholecalciferol [Vitamin D3 (125 Mcg = 5000 Iu)] 125 mcg PO DAILY 06/12/23 [History] Metoprolol Succinate [Toprol XL] 50 mg PO DAILY 06/12/23 [History] QUEtiapine XR [SEROquel XR] 50 mg PO HS 06/12/23 [History] amLODIPine [Norvasc] 5 mg PO DAILY 06/12/23 [History] cloNIDine 0.1 MG/24HR PATCH [Catapres-TTS] 1 patch TRANSDERM Q7D 06/12/23 [History] Follow up Appointment(s)/Referral(s): None,Stated [Primary Care Provider] - 1-2 days Discharge Disposition: ADMITTED IP TO THIS HOSP
== END 2023-06-13 14:20 | disposition short-term general hospital (02) | DRG 885 ==
LOC: EC 23:49 → EEVIPCON 23:49 → 3MHU 06-12 12:41
PROVIDERS: ADMIT Psychiatry & Neurology Psychiatry; ATTEND Psychiatry & Neurology Psychiatry
DX: F23 Brief psychotic disorder (principal); E03.8 Other specified hypothyroidism; I10 Essential (primary) hypertension; Z11.52 Encounter for screening for COVID-19; R42 Dizziness and giddiness; I83.893 Varicose veins of bilateral lower extremities with other complications; F41.9 Anxiety disorder, unspecified; Z79.899 Other long term (current) drug therapy; Z95.5 Presence of coronary angioplasty implant and graft; Z88.6 Allergy status to analgesic agent; Z88.0 Allergy status to penicillin
CPT/HCPCS: 36415; 80048; 80061; 80306; 81001; 82075; 83036; 83880; 84439; 84443; 85025; 87635; 96372; 99285

== ENCOUNTER 2023-06-13 14:13 | Observation (INO) | payer MEDICARE ==
[2023-06-13] MEDS ORDERED: NALOXONE 0.4 MG/ML 1 ML VIAL IV PRN (16:08)
[2023-06-13] MEDS ORDERED: ACETAMINOPHEN TAB 325 MG TAB PO PRN (16:10)
--- NOTE | 2023-06-13 16:22 | P.HPIM ---
History of Present Illness H&P Date: 06/13/23 Patient is a 73-year-old female with reported history of CAD?, Coronary vasospasm, hypertension, psychotic disorder originally admitted to mental health unit for psychosis. Patient was started on Prolixin. During lunch however on 06/13/2023 patient became unresponsive, heart rate down in the 40s, low blood pressure, blood sugars was in the 90s. Reportedly, this was 1 hour after she received her first dose of Prolixin. Patient quickly recovered, now back to normal. Current temperature 98.3, pulse 69, respiratory 17, blood pressure 142/71, saturating at 98% on room air. Initial EKG shows sinus rhythm. Patient claims that she is had similar symptoms before, and was hospitalized multiple times and was found to have coronary vasospasms. She also talks about " stents" but is unsure whether there were truly placed. 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 Currently she denies any chest pain, shortness of breath, abdominal pain, nausea, vomiting, urinary or bowel complaints. Patient moved out of the mental health unit on 2 over observation unit for further workup and monitoring. Cardiology consulted. Pertinent positives and negatives as discussed in HPI, a complete review of systems was performed and all other systems are negative. Patient seen and examined at bedside. Vital signs reviewed General: nontoxic, no distress, appears at stated age Derm: warm, dry Head: atraumatic, normocephalic, symmetric Eyes: EOMI, no lid lag, anicteric sclera, pupils equal round reactive to light ENT: Nose and ears atraumatic Neck: No thyromegaly, supple Mouth: no lip lesion, mucus membranes moist Cardiovascular: S1S2 reg, no murmur, no edema Lungs: clear to auscultation bilateral, no rhonchi, no rales, no wheeze, no accessory muscle use Abdominal: soft, nontender to palpation, no guarding, no appreciable organomegaly Ext: no gross muscle atrophy, muscle strength muscle strength 5 out of 5 in all 4 extremities, no contractures Neuro: CN II-XII grossly intact Psych: Alert, oriented, appropriate affect Assessment/Plan: Syncope, likely vasovagal History of coronary vasospasm?, Coronary artery disease -Continue to monitor on telemetry -Fall precautions -Orthostatic vitals ordered -Cardiology consulted -Repeat EKG, chest x-ray, echocardiogram pending, troponin and labs pending Psychotic disorder -Psychiatry consulted -Sitter at bedside The patient is admitted with an anticipated less than 2 midnight stay as observation status for evaluation of syncope. Surrogate decision-maker: Guardian CODE STATUS: Full code DVT prophylaxis: Lovenox Anticipated discharge date: Pending clinical course Anticipated discharge place: Inpatient psych A total of 55 minutes was spent on the care of this complex patient more than 50% of the time was spent in counseling and care coordination. Past Medical History Past Medical History: Hypertension History of Any Multi-Drug Resistant Organisms: None Reported Past Surgical History: Cholecystectomy, Heart Catheterization With Stent Past Anesthesia/Blood Transfusion Reactions: No Reported Reaction Date of Last Stent Placement:: unknown Past Psychological History: Anxiety Smoking Status: Never smoker Past Alcohol Use History: None Reported Past Drug Use History: None Reported Medications and Allergies Home Medications Medication Instructions Recorded Confirmed Type Cholecalciferol [Vitamin D3 (125 125 mcg PO DAILY 06/12/23 06/13/23 History Mcg = 5000 Iu)] Metoprolol Succinate [Toprol XL] 50 mg PO DAILY 06/12/23 06/13/23 History QUEtiapine XR [SEROquel XR] 50 mg PO HS 06/12/23 06/13/23 History amLODIPine [Norvasc] 5 mg PO DAILY 06/12/23 06/13/23 History cloNIDine 0.1 MG/24HR PATCH 1 patch TRANSDERM Q7D 06/12/23 06/13/23 History [Catapres-TTS] Allergies Allergy/AdvReac Type Severity Reaction Status Date / Time ibuprofen [From Motrin] Allergy Face Verified 06/12/23 08:56 Swelling oxaprozin [From Daypro] Allergy Unknown Verified 06/12/23 08:56 Penicillins Allergy Face Verified 06/12/23 08:56 Swelling Physical Exam Vitals: Vital Signs Temp Pulse Resp BP Pulse Ox 06/13/23 15:36 98.3 F 69 17 142/71 98
[2023-06-13 16:51] LABS: Basophils % (A) 0 %; Eosinophils # (A) 0.1 k/uL (0-0.7); Eosinophils % (A) 2 %; HCT 44.4 % (34.0-46.0); HGB 14.3 gm/dL (11.4-16.0); Lymphocytes # (A) 1.3 k/uL (1.0-4.8); Lymphocytes % (A) 21 %; MCH 30.3 pg (25.0-35.0); MCHC 32.1 g/dL (31.0-37.0); MCV 94.4 fL (80.0-100.0); Mean Platelet Volume 7.8; Monocytes # (A) 0.3 k/uL (0-1.0); Monocytes % (A) 5 %; Neutrophils # (A) 4.6 k/uL (1.3-7.7); Neutrophils % (A) 71 %; Platelet Count 212 k/uL (150-450); RBC 4.71 m/uL (3.80-5.40); RDW 13.4 % (11.5-15.5); WBC 6.5 k/uL (3.8-10.6)
[2023-06-13 17:02] LABS: ALT 19 U/L (4-34); AST 22 U/L (14-36); African American GFR (CKD) 87 (>60 ml/min/1.73 sqM); Albumin 4.2 g/dL (3.5-5.0); Albumin/Globulin Ratio 1.8; Alkaline Phosphatase 60 U/L (38-126); Anion Gap 7 mmol/L; Blood Urea Nitrogen 18 mg/dL (7-17); Calcium 9.8 mg/dL (8.4-10.2); Carbon Dioxide 30 mmol/L (22-30); Chloride 105 mmol/L (98-107); Globulin 2.3 g/dL; Glucose 107 mg/dL (74-99); Non-African American GFR(CKD) 76 (>60 ml/min/1.73 sqM); Potassium 3.8 mmol/L (3.5-5.1); Sodium 142 mmol/L (137-145); Total Bilirubin 1.1 mg/dL (0.2-1.3); Total Protein 6.5 g/dL (6.3-8.2)
--- NOTE | 2023-06-13 18:18 | XR ---
EXAMINATION TYPE: XR chest 1V DATE OF EXAM: 06/13/2023 COMPARISON: None INDICATION: Incomplete TECHNIQUE: Single frontal view of the chest is obtained. FINDINGS: The heart size is normal. The pulmonary vasculature is normal. The lungs are clear. IMPRESSION: 1. No acute pulmonary process.
[2023-06-13] MEDS: ZOLPIDEM 5 MG TAB PO ONE (22:24)
[2023-06-14] MEDS: ENOXAPARIN 40 MG/0.4 ML SYRINGE SQ SCH (09:36)
--- NOTE | 2023-06-14 12:09 | P.CRDCN ---
History of Present Illness Consult date: 06/14/23 Requesting physician: Juan Zamarripa Reason for Consult (text): syncope Chief complaint: lightheadedness History of present illness: This is a 73-year-old female patient who does not follow regularly with a senior shipping clerk has questionable history of CAD questionable history of vasospasm, hypertension, originally admitted to mental health unit for psychosis as she was reportedly having delusions and paranoia by family. She was started on a new medication Prolixin. Yesterday during lunch she apparently became unresponsive with heart rates in the 40s on the pulse oximeter and blood pressure low. This was apparently 1 hour after receiving her first dose of Prolixin. The patient does not clearly remember the episode but does remember feeling somewhat lightheaded. She denies having any chest discomfort, shortness of breath, lower extremity edema, orthopnea, PND, palpitations, and no other episodes of syncope in the past. She has felt lightheaded in the past when she is felt upset or overly warm and is resolved after sitting down. This episode that happened yesterday occurred while patient was seated in her chair. Patient has been maintaining sinus mechanism with heart rates in the 60s to 80s. Blood pressure has been 120s to 140s systolic. Troponins have been negative x 1 with no significant laboratory abnormalities. She has had no further dizziness, lightheadedness and no further syncope with no further hypotension or bradycardia. In discussing the history of possible CAD with the patient she recalls being started on medical management by a senior shipping clerk about 20 years ago but says she has been recently taken off all of her medications by her primary care physician provider as an outpatient. Past Medical History Past Medical History: Hypertension History of Any Multi-Drug Resistant Organisms: None Reported Past Surgical History: Cholecystectomy, Heart Catheterization With Stent Past Anesthesia/Blood Transfusion Reactions: No Reported Reaction Date of Last Stent Placement:: unknown Past Psychological History: Anxiety Smoking Status: Never smoker Past Alcohol Use History: None Reported Past Drug Use History: None Reported Medications and Allergies Home Medications Medication Instructions Recorded Confirmed Type Cholecalciferol [Vitamin D3 (125 125 mcg PO DAILY 06/12/23 06/13/23 History Mcg = 5000 Iu)] Metoprolol Succinate [Toprol XL] 50 mg PO DAILY 06/12/23 06/13/23 History QUEtiapine XR [SEROquel XR] 50 mg PO HS 06/12/23 06/13/23 History amLODIPine [Norvasc] 5 mg PO DAILY 06/12/23 06/13/23 History cloNIDine 0.1 MG/24HR PATCH 1 patch TRANSDERM Q7D 06/12/23 06/13/23 History [Catapres-TTS] Allergies Allergy/AdvReac Type Severity Reaction Status Date / Time ibuprofen [From Motrin] Allergy Face Verified 06/12/23 08:56 Swelling oxaprozin [From Daypro] Allergy Unknown Verified 06/12/23 08:56 Penicillins Allergy Face Verified 06/12/23 08:56 Swelling Physical Exam Vitals: Vital Signs Temp Pulse Resp BP Pulse Ox 06/14/23 07:00 98.3 F 64 17 129/69 95 06/14/23 02:00 98.1 F 66 18 134/79 98 06/13/23 19:48 98.7 F 82 15 142/78 98 06/13/23 15:36 98.3 F 69 17 142/71 98 Intake and Output 06/13/23 06/14/23 06/14/23 22:59 06:59 14:59 Other: # Voids 1 2 Weight 73.6 kg PHYSICAL EXAMINATION: This is a 73-year-old female in no apparent distress at the time of my examination. VITAL SIGNS: Reviewed HEENT: Head is atraumatic, normocephalic. Pupils are equal, round. Sclerae anicteric. Conjunctivae are clear. Mucous membranes of the mouth are moist. Neck is supple. There is no elevated jugular venous pressure. No carotid bruit is heard. CHEST EXAMINATION: Clear to auscultation bilaterally. No wheezes rales or rhonchi. Respirations even and nonlabored. HEART EXAMINATION: Heart regular, positive S1 and S2. No S3. No S4. Soft systolic murmur. ABDOMEN: Soft, nontender. Bowel sounds are heard. No organomegaly noted. EXTREMITIES: 2+ peripheral pulses with no evidence of peripheral edema and no calf tenderness noted. NEUROLOGIC EXAMINATION: Patient is awake, alert and oriented x3. Results 06/13/23 16:30 06/13/23 16:30 Cardiac Enzymes 06/13/23 06/13/23 Range/Units 16:30 16:30 AST 22 (14-36) U/L Troponin I <0.012 (0.000-0.034) ng/mL CBC 06/13/23 Range/Units 16:30 WBC 6.5 (3.8-10.6) k/uL RBC 4.71 (3.80-5.40) m/uL Hgb 14.3 (11.4-16.0) gm/dL Hct 44.4 (34.0-46.0) % Plt Count 212 (150-450) k/uL Comprehensive Metabolic Panel 06/13/23 Range/Units 16:30 Sodium 142 (137-145) mmol/L Potassium 3.8 (3.5-5.1) mmol/L Chloride 105 (98-107) mmol/L Carbon Dioxide 30 (22-30) mmol/L BUN 18 H (7-17) mg/dL Creatinine 0.79 (0.52-1.04) mg/dL Glucose 107 H (74-99) mg/dL Calcium 9.8 (8.4-10.2) mg/dL AST 22 (14-36) U/L ALT 19 (4-34) U/L Alkaline Phosphatase 60 (38-126) U/L Total Protein 6.5 (6.3-8.2) g/dL Albumin 4.2 (3.5-5.0) g/dL Current Medications Generic Name Dose Route Start Last Admin Trade Name Freq PRN Reason Stop Dose Admin Acetaminophen 650 mg 06/13/23 16:10 Acetaminophen Tab 325 Mg Tab PO Q6HR PRN Mild Pain or Fever > 100.5 Enoxaparin Sodium 40 mg 06/14/23 09:00 06/14/23 09:36 Enoxaparin 40 Mg/0.4 Ml Syringe SQ 40 mg DAILY BINTA Administration Naloxone HCl 0.2 mg 06/13/23 16:08 Naloxone 0.4 Mg/Ml 1 Ml Vial IV Q2M PRN Opioid Reversal Intake and Output 06/13/23 06/14/23 06/14/23 22:59 06:59 14:59 Other: # Voids 1 2 Weight 73.6 kg 06/13/23 16:30 06/13/23 16:30 Assessment and Plan Assessment: #1 syncope #2 acute psychosis with paranoia and delusions #3 reported history of CAD for which the details are unknown #4 hypertension Plan: From cardiology's perspective we will obtain a 2D echo with Doppler study to a ssess cardiac structure and function. We will discontinue clonidine patch. Continue to follow heart rate and blood pressure closely. Episode could have been related to adverse effects of Prolixin or vasovagal episode as patient does recall feeling somewhat upset prior to the event. We will continue to follow the patient and provide further recommendations accordingly. OVERNIGHT CAREGIVER note has been reviewed, I agree with a documented findings and plan of care. Patient was seen and examined.
[2023-06-14] MEDS ORDERED: ONDANSETRON 4 MG/2 ML VIAL IVP PRN (15:04)
[2023-06-14] MEDS ORDERED: MELATONIN 3 MG TABLET PO PRN (15:04)
[2023-06-14] MEDS ORDERED: bisacodyL 5 MG TABLET.DR PO PRN (15:04)
--- NOTE | 2023-06-14 15:07 | P.PN ---
Subjective Progress Note Date: 06/14/23 (delayed charting seen at 0915) Patient is a 73-year-old female who presented from the mental health unit due to syncopal episode that occurred after taking Prolixin. Patient does have a history of coronary vasospasm and hypertension as well as possible coronary artery disease. Patient seen and examined at bedside. She has no complaints at this time. Is feeling well. Denies any lightheadedness, dizziness, chest pain, or shortness of breath. She is very concerned about her lower extremity edema that has been going on for quite some time. Vital signs reviewed General: Nontoxic, no distress, appears at stated age Cardiovascular: S1S2 reg, no murmur Lungs: CTA bilateral, no rhonchi, no rales, no accessory muscle use Abdominal: Soft, nontender to palpation, no guarding Ext: No gross muscle atrophy, no edema b/l lower extremities, no contractures Neuro: CN II-XI grossly intact, no focal neuro deficits Psych: Alert, oriented, appropriate affect Assessment/Plan: Syncope, likely vasovagal Possible history of coronary vasospasm Lower extremity edema -Telemetry reviewed: No significant arrhythmias noted -Check orthostatic vitals -Cardiology consultation reviewed: Discontinue clonidine patch -Await echocardiogram. Concern for possible congestive heart failure -Check BNP in a.m. Hypertension -Patient takes clonidine patch at home. Has been discontinued per cardiology. -Patient takes metoprolol 50 mg daily and amlodipine 5 mg daily at home. Patient's blood pressure currently 138/79 we will continue to hold these medications -Follow blood pressures Imaging: None new Data Review: None new DVT prophylaxis: Lovenox Anticipated discharge date: 24 to [address]: Return to [facility] This dictation was prepared using [email or web address] voice recognition software. Though every attempt is made to correct errors during dictation some may still exist. Objective - Vital Signs Vital signs: Vital Signs Temp 98.9 F 06/14/23 14:38 Pulse 71 06/14/23 14:38 Resp 16 06/14/23 14:38 BP 138/79 06/14/23 14:38 Pulse Ox 97 06/14/23 14:38 FiO2 Intake & Output 06/13/23 06/14/23 06/14/23 18:59 06:59 18:59 Weight 73.6 kg Other: # Voids 2 4 # Bowel Movements 0 - Labs CBC & Chem 7: 06/13/23 16:30 06/13/23 16:30 Labs: Abnormal Lab Results - Last 24 Hours (Table) 06/13/23 Range/Units 16:30 BUN 18 H (7-17) mg/dL Glucose 107 H (74-99) mg/dL
[2023-06-15] MEDS ORDERED: LORazepam 1 MG/0.5 ML VIAL IM STA (04:49)
[2023-06-15] MEDS: HALOPERIDOL LACTATE 5 MG/ML 1 ML VIAL IM STA (05:03)
[2023-06-15] MEDS: LORazepam 2 MG/ML INJ IM STA (05:10)
[2023-06-15] MEDS ORDERED: LORazepam 1 MG/0.5 ML VIAL IV PRN (05:12)
--- NOTE | 2023-06-15 07:27 | P.PN ---
Subjective Progress Note Date: 06/15/23 Principal diagnosis: Syncope The patient is a pleasant 73-year-old female patient with a past medical history significant for hypertension and history of coronary artery disease as well as psychosis who was admitted to the hospital with syncope and underwent further investigation came in to be so far unremarkable. June 15, 2023 The patient was seen and evaluated this morning. She is asymptomatic at this point. The pressure remains elevated and consistent with stage II hypertension with him going to restart the patient back on the blood pressure medications including the amlodipine and metoprolol. An echocardiogram was ordered. Will make sure also and orthostatic blood pressure will be checked. The examination is remarkable for regular rhythm with a soft systolic murmur and clear breathing sounds bilaterally and no carotid bruit and no edema was noted Assessment History of psychiatric disease History of syncope Hypertension not well-controlled Plan Restart the patient back on amlodipine Apparently the patient was bradycardic before she was transferred to the floor. Currently she is slightly tachycardic Follow-up after the echocardiogram Orthostatic blood pressure was checked and came in to be unremarkable Follow-up after the echocardiogram Objective - Vital Signs Vital signs: Vital Signs Temp 98.1 F 06/15/23 00:07 Pulse 109 H 06/15/23 01:03 Resp 16 06/15/23 01:03 BP 175/89 06/15/23 01:03 Pulse Ox 97 06/15/23 01:03 FiO2 Intake & Output 06/14/23 06/15/23 06/15/23 18:59 06:59 18:59 Other: # Voids 4 2 # Bowel Movements 0 - Labs CBC & Chem 7: 06/13/23 16:30 06/13/23 16:30
[2023-06-15 12:35] LABS: HCT 40.7 % (34.0-46.0); HGB 13.7 gm/dL (11.4-16.0); MCH 31.3 pg (25.0-35.0); MCHC 33.6 g/dL (31.0-37.0); MCV 93.2 fL (80.0-100.0); Mean Platelet Volume 7.9; Platelet Count 187 k/uL (150-450); RBC 4.37 m/uL (3.80-5.40); RDW 13.4 % (11.5-15.5); WBC 6.4 k/uL (3.8-10.6)
[2023-06-15 13:19] LABS: African American GFR (CKD) >90 (>60 ml/min/1.73 sqM); Anion Gap 4 mmol/L; Blood Urea Nitrogen 15 mg/dL (7-17); Calcium 9.8 mg/dL (8.4-10.2); Carbon Dioxide 26 mmol/L (22-30); Chloride 108 mmol/L (98-107); Glucose 88 mg/dL (74-99); Non-African American GFR(CKD) >90 (>60 ml/min/1.73 sqM); Potassium 4.2 mmol/L (3.5-5.1); Sodium 138 mmol/L (137-145)
[2023-06-15 13:27] LABS: NT-Pro-B-Type Natriuretic Pept 123 pg/mL
[2023-06-15] MEDS: amLODIPine 5 MG TAB PO SCH (13:37)
[2023-06-15] MEDS ORDERED: OLANZapine 5 MG TAB PO PRN (13:48)
[2023-06-15] MEDS ORDERED: OLANZapine 10 MG VIAL IM PRN (13:48)
--- NOTE | 2023-06-15 13:48 | P.PN ---
Subjective Progress Note Date: 06/15/23 Patient is a 73-year-old female who presented from the mental health unit due to syncopal episode that occurred after taking Prolixin. Patient does have a history of coronary vasospasm and hypertension as well as possible coronary artery disease. Patient seen and examined at bedside. Overnight she was combative, received IM Haldol. No new complaints. Vital signs reviewed General: Nontoxic, no distress, appears at stated age Cardiovascular: S1S2 reg, no murmur Lungs: CTA bilateral, no rhonchi, no rales, no accessory muscle use Abdominal: Soft, nontender to palpation, no guarding Ext: No gross muscle atrophy, no edema b/l lower extremities, no contractures Neuro: CN II-XI grossly intact, no focal neuro deficits Psych: Alert, oriented, appropriate affect Assessment/Plan: Syncope, likely vasovagal Possible history of coronary vasospasm Lower extremity edema -Continue telemetry -Orthostatic vitals were negative -Cardiology note reviewed, echocardiogram pending, restarted on home amlodipine 5 mg Hypertension -Patient takes clonidine patch at home. Has been discontinued per cardiology. -Restarted on home amlodipine 5 mg -Follow blood pressures Psychotic disorder -Psychiatry consulted -If echocardiogram is negative, patient will to be discharged back to inpatient psychiatry. Imaging: None new Data Review: WBC 6.4, hemoglobin 13.7, potassium 4.2, creatinine 0.49 DVT prophylaxis: Lovenox Anticipated discharge date: 24 to [address]: Return to [facility] Objective - Vital Signs Vital signs: Vital Signs Temp 97.7 F 06/15/23 07:00 Pulse 75 06/15/23 13:25 Resp 16 06/15/23 07:00 BP 139/67 06/15/23 13:25 Pulse Ox 96 06/15/23 07:00 FiO2 Intake & Output 06/14/23 06/15/23 06/15/23 18:59 06:59 18:59 Other: # Voids 4 2 # Bowel Movements 0 - Labs CBC & Chem 7: 06/15/23 12:22 06/15/23 12:22 Labs: Abnormal Lab Results - Last 24 Hours (Table) 06/15/23 Range/Units 12:22 Chloride 108 H (98-107) mmol/L Creatinine 0.49 L (0.52-1.04) mg/dL
--- NOTE | 2023-06-15 14:12 | P.CN ---
Psychiatric Consult - . Consult date: 06/15/23 Consult:: 06/15/23 13:31 IDENTIFYING DATA: Patient is a 73 yo female, currently lives alone in a house, she has no kids, she is single Patient was seen today for psychiatric consultation for continuation of care as patient was discharged from the mental health unit to the medical floors on 06/12 due to vital sign instability and lightheadedness. HPI: Patient was initially seen by group underwriter for H&P and as per note dictated on 06/12 "patient presented to the hospital to the ER yesterday. Patient was recently discharged from [facility] over a week ago. Apparently patient has not been taking medications according to petition filled out by her sister/guardian. Also states that patient has been agitated paranoid and went over to her neighbor's house for 7 hours and refused to leave. Patient was admitted involuntarily to the mental health unit. She was agreeable to speak with group underwriter today at the bedside. She claims that she has been having "poor memory" and was fairly loose and associations illogical. She had several things written down in her folder was looking through her belongings. She was tangential in her thought process disorganized. She claims that she was "just at [facility]" however did not remember who she saw there, does not remember what medication she on and does not believe that she has any kind of diagnosis or needs medications. She denied any depression or anxiety at this time. Is endorsing paranoia towards others. She is able to correctly identify her name, her location and the date. Was able to spell "world" backwards.. Patient denies any suicidal or homicidal ideations intent or plan. At this time patient denies any auditory or visual hallucinations. Patient denies any flight of ideas racing thoughts and increased in goal directed behavior. Patient admits to using no recreational drugs or cigarettes". Building Architectural Designer today spoke with patient's nurse who states that patient was agitated yesterday at nighttime, has been delusional and paranoid. Patient apparently attempted to barricade the door into her room and required prn haldol last night IM. Patient apparently slept well after that and woke up this morning according to nurse. Patient was seen today on the medical floors and agreeable to speak to group underwriter. Patient has a one-to-one sitter at her side. She appears to be mildly more pleasant today with group underwriter, continues to ramble, has loose associations illogical. She was fairly focused on obtaining a folder that she has several writings on. She showed me a folder in her bag with several different sentences that were mainly illogical and did not make sense. She appears to have very poor insight poor judgment. She was endorsing paranoia towards others including staff members. At this time she is denying any auditory or visual hallucinations, denying any suicidal homicidal ideations intent or plan. Patient was a fairly poor historian. PAST PSYCHIATRIC HISTORY: Patient denies any previous psychiatric history. Patient was previously on Seroquel however has not been taking it. Patient was just psychiatrically admitted to [facility] in late May. Patient denies any psychiatric outpatient follow-up. Patient denies any history of suicide attempts in the past. Past Medical History: No Reported History History of Any Multi-Drug Resistant Organisms: None Reported Past Surgical History: Cholecystectomy, Heart Catheterization With Stent Past Psychological History: Anxiety Smoking Status: Never smoker Past Alcohol Use History: None Reported Past Drug Use History: None Reported ALLERGIES: as per EMR CHEMICAL DEPENDENCY HISTORY: as per HPI FAMILY PSYCHIATRIC/SUBSTANCE USE HISTORY: Denies SOCIAL HISTORY: Patient was born and raised in [place]. States that she completed high school and completed her bachelor's degree. 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 Claims that she has never had any legal history. She is single, lives alone in a house, denies having any kids. MENTAL STATUS EXAM: General Appearance: Patient appears to be thin, long white hair, stated age is alert, difficult to redirect, bizarre at times. Patient appears to have fair hygiene and grooming. Behavior: Patient is seated without any agitated behavior. Tangential and difficult to redirect Speech: Patient's speech is fluent and nonpressured. Rambling, tangential, bizarre Mood/Affect: Patient reports their mood is ok, affect is congruent and constricted. Suicidality/Homicidality: Patient denies having any homicidal ideation intent or plan. Denies any suicidal ideations intent or plan Perceptions: Patient denies any visual hallucinations and denies any auditory hallucinations Though content/process: Associations, illogical. Paranoia. Bizarre content, focused on her folder Memory and concentration: AOX3, grossly intact for the purposes of this session. Cannot spell "WORLD" backwards Judgment and insight: Poor/limited IMPRESSIONS: Psychosis unspecified likely underlying major neurocognitive disorder PLAN: -At this time patient DOES meet criteria for inpatient geriatric psychiatric admission/transfer once she is medically cleared. Patient is currently involuntary on a Deferral from her previous admission at an outside hospital. patient will need to have demand for hearing filed. -Patient DOES NOT have decision making capacity at this time and is unable to reason through and communicate/appreciate the risks, benefits and alternatives to treatment. -Delirium precautions recommended with patient including - avoiding use of narcotics and MARBLE CHIP TERRAZZO WORKER sedatives, limit anticholinergic medications when possible, frequent re-orientation, minimize use of restraints, open window shades during the day and close them at night -Would recommend the following medication changes/additions: Please avoid giving patient benzodiazepines at this time including Ativan as this may precipitate patient's confusion or cause of fall or paradoxical aggression. Start Zyprexa 2.5 mg nightly scheduled for psychosis/mood stabilization/insomnia. Will give 1 dose of 2.5 mg now. Melatonin nightly as needed for sleep. -Zyprexa p.o. and IM for severe agitation as needed -Continue 1:1 sitter for safety -Cannot leave AMA at this time. Patient will need a petition and certification if attempting to leave AMA. -When medically stable, patient is eligible for transfer to a [facility] when available. -Communicated plan to patient's nurse -Will continue to follow along as needed -Please contact with any questions. 06/15/23 13:50 06/15/23 14:10
[2023-06-15] MEDS: OLANZapine 2.5 MG TAB PO ONE (14:41)
[2023-06-15 19:55] LABS: Glucose,Whole Blood 121 mg/dL (70-110)
[2023-06-15] MEDS: OLANZapine 2.5 MG TAB PO SCH (23:51)
--- NOTE | 2023-06-16 10:11 | P.PN ---
Subjective Progress Note Date: 06/16/23 Principal diagnosis: Syncope The patient is a pleasant 73-year-old female patient with a past medical history significant for hypertension and history of coronary artery disease as well as psychosis who was admitted to the hospital with syncope and underwent further investigation came in to be so far unremarkable. June 15, 2023 The patient was seen and evaluated this morning. She is asymptomatic at this point. The pressure remains elevated and consistent with stage II hypertension with him going to restart the patient back on the blood pressure medications including the amlodipine and metoprolol. An echocardiogram was ordered. Will make sure also and orthostatic blood pressure will be checked. The examination is remarkable for regular rhythm with a soft systolic murmur and clear breathing sounds bilaterally and no carotid bruit and no edema was noted June 16, 2023 The patient was seen and evaluated this morning which she is asymptomatic. The pressure is under better control after she was started on amlodipine. The heart rate has improved and not bradycardic anymore. She stated that she was receiving thyroid replacement therapy but she stopped taking them. Will find out the exact dose and restart back the thyroid medications. Beside that we will obtain TSH and free T4. Echo still pending we will follow-up on that. From a cardiac standpoint of view the patient potentially can be discharged home after the echo results will be back. She might benefit from event monitor as an outpatient or discharged home with an event monitor Assessment History of psychiatric disease History of syncope Hypertension not well-controlled Plan Continue the current medical regimen Avoid any AV gilson re agents TSH and free T4 Follow-up on the echocardiogram The patient potentially can be discharged Objective - Vital Signs Vital signs: Vital Signs Temp 98.5 F 06/16/23 07:00 Pulse 60 06/16/23 07:00 Resp 16 06/16/23 07:00 BP 153/73 06/16/23 07:00 Pulse Ox 97 06/16/23 07:00 FiO2 Intake & Output 06/15/23 06/16/23 06/16/23 18:59 06:59 18:59 Intake Total 400 Balance 400 Intake: Oral 400 Other: # Voids 1 2 - Labs CBC & Chem 7: 06/15/23 12:22 06/15/23 12:22 Labs: Abnormal Lab Results - Last 24 Hours (Table) 06/15/23 06/15/23 Range/Units 12:22 19:53 Chloride 108 H (98-107) mmol/L Creatinine 0.49 L (0.52-1.04) mg/dL POC Glucose (mg/dL) 121 H (70-110) mg/dL
[2023-06-16 12:47] LABS: T4, Free (Free Thyroxine) 1.09 ng/dL (0.78-2.19)
--- NOTE | 2023-06-16 13:02 | CA ---
Transthoracic Echo Report Name: Ryan Leon Age: 73 Gender: F : 1950 Exam Date: 06/15/2023 14:22 Exam Location: [facility] Ht (in): 64 Wt (lb): 162 Ordering Physician: Juan Zamarripa MD Attending/Referring Phys: Clinical Care Coordinator Aubree Mesa RDCS Procedure CPT: Indications: Syncope Cardiac Hx: Technical Quality: Good Contrast 1: Total Dose (mL): Contrast 2: Total Dose (mL): MEASUREMENTS (Male / Female) Normal Values 2D ECHO LV Diastolic Diameter PLAX 4.6 cm 4.2 - 5.9 / 3.9 - 5.3 cm LV Systolic Diameter PLAX 3.2 cm IVS Diastolic Thickness 1.0 cm 0.6 - 1.0 / 0.6 - 0.9 cm LVPW Diastolic Thickness 1.0 cm 0.6 - 1.0 / 0.6 - 0.9 cm LV Relative Wall Thickness 0.4 RV Internal Dim ED PLAX 3.3 cm LA Systolic Diameter LX 3.6 cm 3.0 - 4.0 / 2.7 - 3.8 cm LV Diastolic Volume MOD 4C 94.7 cm??? LV Systolic Volume MOD 4C 36.6 cm??? LV Ejection Fraction MOD 4C 61.4 % LV Cardiac Index MOD 4C 2116.5 cm???/min???m??? LV Diastolic Length 4C 7.8 cm LV Systolic Length 4C 6.2 cm LV Diastolic Volume MOD 2C 113.5 cm??? LV Systolic Volume MOD 2C 47.6 cm??? LV Ejection Fraction MOD 2C 58.1 % LV Cardiac Index MOD 2C 2399.5 cm???/min???m??? LV Diastolic Length 2C 8.2 cm LV Systolic Length 2C 6.4 cm LA Volume 76.7 cm??? 18 - 58 / 22 - 52 cm??? LA Volume Index 41.7 cm???/m??? 16 - 28 cm???/m??? M-MODE Aortic Root Diameter MM 3.2 cm MV E Point Septal Separation 0.4 cm AV Cusp Separation MM 1.9 cm DOPPLER AV Peak Velocity 157.7 cm/s AV Peak Gradient 9.9 mmHg MV Area PHT 3.0 cm??? Mitral E Point Velocity 74.5 cm/s Mitral A Point Velocity 107.9 cm/s Mitral E to A Ratio 0.7 MV Deceleration Time 254.1 ms TR Peak Velocity 244.6 cm/s TR Peak Gradient 23.9 mmHg Right Ventricular Systolic Press 28.6 mmHg FINDINGS Left Ventricle Left ventricular ejection fraction is estimated at 60-65 %. Left ventricular cavity size normal. Left ventricular wall thickness normal. Normal left ventricular wall motion. Right Ventricle Mild right ventricular dilatation. Right ventricular systolic pressure within normal limits. Right Atrium Normal right atrial size. No right atrial thrombus or mass seen. Left Atrium Severely increased left atrial volume. Mitral Valve Structurally normal mitral valve. Trace mitral regurgitation. Aortic Valve Trileaflet aortic valve. No aortic valve stenosis or regurgitation. Tricuspid Valve Structurally normal tricuspid valve. Mild tricuspid regurgitation. Pulmonic Valve Structurally normal pulmonic valve. No pulmonic regurgitation. Pericardium No pericardial effusion. Aorta Normal size aortic root and proximal ascending aorta. CONCLUSIONS Normal LV systolic function Previewed by: Dr. Jorje Flaherty MD (Electronically Signed) Final Date: 16 Jun 2023 13:01
--- NOTE | 2023-06-16 14:05 | P.PN ---
Progress Note - Text Progress Note Date: 06/16/23 Interval History: Patient was seen today for psychiatric follow-up at the bedside. Patient's nu rse states that patient has been doing fairly well today, pleasant and cooperative taking her medications. Patient continues to have a sitter at her bedside. Patient appeared to be fairly pleasant today during conversation, she was smiling, states that she is having some racing thoughts however states that she is feeling overall better, denies any depression or anxiety. Claims that she tolerated the medication well and believes she slept last night. Patient did ramble a bit today, thought process is improving compared to yesterday. Continues to have chronically limited insight and judgment. Has a fair appetite, just finished eating her lunch. She was asking about discharge potentially. She is fairly positive today. Denying any suicidal homicidal ideations intent or plan. Denying any auditory or visual hallucinations. MENTAL STATUS EXAM: General Appearance: Patient appears to be thin, long white hair, stated age is alert, more directable today. Patient appears to have fair hygiene and grooming. Behavior: Patient is seated without any agitated behavior. Tangential, improving mildly Speech: Patient's speech is fluent and nonpressured. Rambling, improving mildly Mood/Affect: Patient reports their mood is "good", affect is congruent and improving affect Suicidality/Homicidality: Patient denies having any homicidal ideation intent or plan. Denies any suicidal ideations intent or plan Perceptions: Patient denies any visual hallucinations and denies any auditory hallucinations Though content/process: Thought content improving, did endorse some racing thoughts, improving. No paranoia today. Memory and concentration: AOX3, grossly intact for the purposes of this session. Cannot spell "WORLD" backwards Judgment and insight: Poor/limited, improving mildly IMPRESSIONS: Psychosis unspecified major neurocognitive disorder PLAN: -At this time patient DOES NOT meet criteria for inpatient geriatric psychiatric admission/transfer. Patient is currently on a Deferral status. -Patient DOES NOT have decision making capacity at this time and is unable to reason through and communicate/appreciate the risks, benefits and alternatives to treatment. Patient currently has a guardian which is her sister. -Delirium precautions recommended with patient including - avoiding use of narcotics and SOFTWARE DEVELOPER MID LEVEL sedatives, limit anticholinergic medications when possible, frequent re-orientation, minimize use of restraints, open window shades during the day and close them at night -Would recommend the following medication changes/additions: Please avoid giving patient benzodiazepines at this time including Ativan as this may precipitate patient's confusion or cause of fall or paradoxical aggression. increased Zyprexa 5 mg nightly scheduled for psychosis/mood stabilization/insomnia. Melatonin nightly as needed for sleep. -Zyprexa p.o. and IM for severe agitation as needed -Continue 1:1 sitter for safety, likely discontinue tomorrow if patient is doing well overnight. -Communicated plan to patient's nurse and SW. -health outreach worker to speak with patient's sister/guardian today about discharge planning likely tomorrow, we feel that it is unsafe for patient to return back h ome and living independently, will be giving guardian the information for long- term placement, assisted living options as patient's condition is chronic and her functioning will likely continue to be impaired -Will continue to follow tomorrow and likely sign off tomorrow. -Please contact with any questions.
--- NOTE | 2023-06-16 14:47 | P.PN ---
Subjective Progress Note Date: 06/16/23 Patient is a 73-year-old female who presented from the mental health unit due to syncopal episode that occurred after taking Prolixin. Patient does have a history of coronary vasospasm and hypertension as well as possible coronary artery disease. Echocardiogram showed normal LV function. Medically stable for discharge. Being followed up by psychiatry. Patient seen and examined at bedside. No acute events overnight. Vital signs reviewed General: Nontoxic, no distress, appears at stated age Cardiovascular: S1S2 reg, no murmur Lungs: CTA bilateral, no rhonchi, no rales, no accessory muscle use Abdominal: Soft, nontender to palpation, no guarding Ext: No gross muscle atrophy, no edema b/l lower extremities, no contractures Neuro: CN II-XI grossly intact, no focal neuro deficits Psych: Alert, oriented, appropriate affect Assessment/Plan: Syncope, likely vasovagal Possible history of coronary vasospasm Lower extremity edema -Continue telemetry -Orthostatic vitals were negative -Cardiology note reviewed, echocardiogram shows normal LV function Hypertension -Patient takes clonidine patch at home. Has been discontinued per cardiology. -Continue on home amlodipine 5 mg -Follow blood pressures Psychotic disorder -Psychiatry note reviewed, recommending possibly discharge tomorrow -Zyprexa 5 IM p.o. nightly, and as needed Elevated TSH -Normal free T4 - repeat in 4-6 weeks. Imaging: None new Data Review: TSH 5.14, free T4 1.09 DVT prophylaxis: Lovenox Anticipated discharge date: pending clinical course Anticipated discharge place: pending clinical course Objective - Vital Signs Vital signs: Vital Signs Temp 98.5 F 06/16/23 07:00 Pulse 68 06/16/23 09:34 Resp 16 06/16/23 09:34 BP 153/73 06/16/23 07:00 Pulse Ox 97 06/16/23 07:00 FiO2 Intake & Output 06/15/23 06/16/23 06/16/23 18:59 06:59 18:59 Intake Total 400 236 Balance 400 236 Intake: Oral 400 236 Other: Voiding Method Toilet # Voids 1 2 3 - Labs CBC & Chem 7: 06/15/23 12:22 06/15/23 12:22 Labs: Abnormal Lab Results - Last 24 Hours (Table) 06/15/23 06/15/23 Range/Units 16:30 19:53 POC Glucose (mg/dL) 121 H (70-110) mg/dL TSH 5.140 H (0.465-4.680) mIU/L
[2023-06-17] MEDS: OLANZapine 5 MG TAB PO SCH (00:11)
[2023-06-17 07:31] VITALS: TEMP 98.4
--- NOTE | 2023-06-17 10:43 | P.PN ---
Subjective HISTORY OF PRESENT ILLNESS: The patient is a pleasant 73-year-old female patient with a past medical history significant for hypertension and history of coronary artery disease as well as psychosis who was admitted to the hospital with syncope and underwent further investigation came in to be so far unremarkable. June 15, 2023 The patient was seen and evaluated this morning. She is asymptomatic at this point. The pressure remains elevated and consistent with stage II hypertension with him going to restart the patient back on the blood pressure medications including the amlodipine and metoprolol. An echocardiogram was ordered. Will make sure also and orthostatic blood pressure will be checked. The examination is remarkable for regular rhythm with a soft systolic murmur and clear breathing sounds bilaterally and no carotid bruit and no edema was noted June 16, 2023 The patient was seen and evaluated this morning which she is asymptomatic. The pressure is under better control after she was started on amlodipine. The heart rate has improved and not bradycardic anymore. She stated that she was receiving thyroid replacement therapy but she stopped taking them. Will find out the exact dose and restart back the thyroid medications. Beside that we will obtain TSH and free T4. Echo still pending we will follow-up on that. Fr om a cardiac standpoint of view the patient potentially can be discharged home after the echo results will be back. She might benefit from event monitor as an outpatient or discharged home with an event monitor 06/16/2023 Patient examined this morning at bedside. Patient denies chest pain or pressu re. She denies shortness of breath. Echocardiogram completed revealing ejection fraction 6065% with trace MR and mild TR. PHYSICAL EXAM: VITAL SIGNS: Reviewed. GENERAL: Well-developed in no acute distress. NECK: Supple. No JVD or thyromegaly LUNGS: Respirations even and unlabored. Lungs essentially clear to auscultation bilaterally. HEART: Regular rate and rhythm. S1 and S2 heard. EXTREMITIES: Normal range of motion. No clubbing or cyanosis. Peripheral pulses intact. No lower extremity edema ASSESSMENT: History of psychiatric disease History of syncope Hypertension not well-controlled PLAN: Continue current cardiac medications Patient is stable for discharge home today from a cardiac standpoint She is to follow-up postdischarge with Dr. Flaherty Will consider event monitor on an outpatient basis We will sign off. Please reconsult if needed. Nurse practitioner note has been reviewed by physician. Signing provider agrees with the documented findings, assessment, and plan of care documented by ENTRY LEVEL INSTALLATION TECHNICIAN as a scribe. Objective - Vital Signs Vital signs: Vital Signs Temp 98.4 F 06/17/23 07:00 Pulse 75 06/17/23 07:00 Resp 14 06/17/23 07:00 BP 145/71 06/17/23 07:00 Pulse Ox 96 06/17/23 07:00 FiO2 Intake & Output 06/16/23 06/17/23 06/17/23 18:59 06:59 18:59 Intake Total 236 Balance 236 Intake: Oral 236 Other: Voiding Method Toilet Toilet # Voids 3 1 - Labs CBC & Chem 7: 06/15/23 12:22 06/15/23 12:22 Labs: Abnormal Lab Results - Last 24 Hours (Table) 06/15/23 Range/Units 16:30 TSH 5.140 H (0.465-4.680) mIU/L
--- NOTE | 2023-06-17 13:24 | P.DS ---
Providers Date of admission: 06/13/23 14:21 Expected date of discharge: 06/17/23 Attending physician: Juan Zamarripa MD Consults: 06/13/23 16:10 Consult Physician Routine Consulting Provider: Daryl Soto Consult Reason/Comments: coming from inpatient psych Do you want consulting provider notified?: Yes Primary care physician: Stated None Hospital Course: Discharge Diagnosis: Syncope, likely vasovagal Lower extremity edema Hypertension Psychotic disorder Elevated TSH Hospital Course: Patient is a 73-year-old female who presented from the mental health unit due to syncopal episode that occurred after taking Prolixin. Patient does have a history of coronary vasospasm and hypertension as well as possible coronary artery disease. Echocardiogram showed normal LV function. Was evaluated by cardiology. Restarted on home amlodipine. Follow-up outpatient with cardiology. Medically stable for discharge. Psychiatry started patient on Zyprexa at night. Follow-up outpatient with behavioral health. She may need further follow-up with [facility]. Patient seen and examined at bedside. Vital signs reviewed and stable. General: Nontoxic, no distress, appears at stated age Derm: Warm, dry Head: Atraumatic, normocephalic, symmetric Eyes: EOMI, no lid lag, anicteric sclera Mouth: No lip lesion, mucus membranes moist Cardiovascular: S1S2 reg, no murmur Lungs: CTA bilateral, no rhonchi, no rales, no accessory muscle use Abdominal: Soft, nontender to palpation, no guarding, no appreciable organomegaly Ext: No gross muscle atrophy, no edema, no contractures Neuro: CN II-XI grossly intact, no focal neuro deficits Psych: Alert, oriented, appropriate affect A total of 33 minutes of time were spent preparing this complex discharge summary. Patient was discharged on 06/17/2023 at 1049. Patient Condition at Discharge: Stable Plan - Discharge Summary Discharge Rx Participant: No New Discharge Prescriptions: New OLANZapine [ZyPREXA] 5 mg PO HS #60 tab Continue Cholecalciferol [Vitamin D3 (125 Mcg = 5000 Iu)] 125 mcg PO DAILY amLODIPine [Norvasc] 5 mg PO DAILY Discontinued QUEtiapine XR [SEROquel XR] 50 mg PO HS cloNIDine 0.1 MG/24HR PATCH [Catapres-TTS] 1 patch TRANSDERM Q7D Metoprolol Succinate [Toprol XL] 50 mg PO DAILY Discharge Medication List Cholecalciferol [Vitamin D3 (125 Mcg = 5000 Iu)] 125 mcg PO DAILY 06/12/23 [History] amLODIPine [Norvasc] 5 mg PO DAILY 06/12/23 [History] OLANZapine [ZyPREXA] 5 mg PO HS #60 tab 06/17/23 [Rx] Follow up Appointment(s)/Referral(s): [facility] [Outside] - As Needed (FELECIA ENNIS - [facility] FACILITY MANAGER - 06.18.23 AT 11:00 AM VICKI BECERRA - [facility] LIMEHOUSE WORKER - 06.25.23 AT 12:00PM) Jorje Flaherty MD [STAFF PHYSICIAN] - 1 Week Eugene Wilkins MD [REFERRING] - 1 Week Patient Instructions/Handouts: Syncope (DC), Psychotic Disorder (DC) Activity/Diet/Wound Care/Special Instructions: Please see [facility] and establish with primary care physician. Discharge/Stand Alone Forms: Area PCPs Discharge Disposition: HOME SELF-CARE
--- NOTE | 2023-06-17 13:51 | P.PN ---
Progress Note - Text Progress Note Date: 06/17/23 Interval History: Patient was seen today for psychiatric follow-up at the bedside. Patient was eating her lunch in her chair. Patient continues to have a sitter at her bedside. She has been taking her medications, claims that the medications have been helping her. She states that she is not having any more racing thoughts, she was fairly directable and appropriate in the thought content. denies any depression or anxiety. Claims that she tolerated the medication well and believes she slept last night. Patient did ramble a bit today, thought process is improving compared to yesterday. Continues to have chronically limited insight and judgment. Has a fair appetite, just finished eating her lunch. Denying any suicidal homicidal ideations intent or plan. Denying any auditory or visual hallucinations. MENTAL STATUS EXAM: General Appearance: Patient appears to be thin, long white hair, stated age is alert, more directable today. Patient appears to have fair hygiene and grooming. Behavior: Patient is seated without any agitated behavior. less Tangential, improving mildly Speech: Patient's speech is fluent and nonpressured. Rambling, improving mildly Mood/Affect: Patient reports their mood is "good", affect is congruent and improving affect Suicidality/Homicidality: Patient denies having any homicidal ideation intent or plan. Denies any suicidal ideations intent or plan Perceptions: Patient denies any visual hallucinations and denies any auditory hallucinations Though content/process: Thought content improving, did endorse some racing thoughts, improving. No paranoia today. Memory and concentration: AOX3, grossly intact for the purposes of this session IMPRESSIONS: Psychosis unspecified major neurocognitive disorder PLAN: -At this time patient DOES NOT meet criteria for inpatient geriatric psychiatric admission/transfer. Patient is currently on a Deferral status. -Patient DOES NOT have decision making capacity at this time and is unable to reason through and communicate/appreciate the risks, benefits and alternatives to treatment. Patient currently has a guardian which is her sister. -Delirium precautions recommended with patient including - avoiding use of narcotics and DAIRY WORKER sedatives, limit anticholinergic medications when possible, frequent re-orientation, minimize use of restraints, open window shades during the day and close them at night -Would recommend the following medication changes/additions: Please avoid giving patient benzodiazepines at this time including Ativan as this may precipitate patient's confusion or cause of fall or paradoxical aggression. Zyprexa 5 mg nightly scheduled for psychosis/mood stabilization/insomnia. Melatonin nightly as needed for sleep. -Zyprexa p.o. and IM for severe agitation as needed -Communicated plan to patient's nurse and SW. -SW spoke with patient's guardian over the phone and will be giving guardian the information for long-term placement, assisted living options as patient's condition is chronic and her functioning will likely continue to be impaired. Patient apparently also has a [facility] appointment tomorrow for psychiatric follow- up. -This time psychiatry will sign off. -Please contact with any questions.
[2023-06-17 14:29] VITALS: BP 143/88; PULSE 95; RESP 16
== END 2023-06-17 17:19 | disposition home or self-care (01) ==
LOC: 6NMEDSUR 14:21 → PREOBSVTOIN 14:41 → PREINTOOBSV 15:20 → 6NMEDSUR 15:21 → UNDOADMOB 15:21
PROVIDERS: ADMIT Student in an Organized Health Care Education/Training Program; ATTEND Student in an Organized Health Care Education/Training Program
DX: R55 Syncope and collapse (principal); M79.89 Other specified soft tissue disorders; I10 Essential (primary) hypertension; F29 Unspecified psychosis not due to a substance or known physiological condition; R79.89 Other specified abnormal findings of blood chemistry; Z79.899 Other long term (current) drug therapy
CPT/HCPCS: 96374; 96375; 96372 ×4; 93306; 84439; 83880; 80053; 80048; 84443; 84484; 85025; 85027; 71045; G0379; G0378 ×5; J2060; J1630; J1650 ×4

== ENCOUNTER 2023-06-26 18:55 | Inpatient (IN) | payer MEDICARE ==
--- NOTE | 2023-06-26 19:58 | ED ---
Psych HPI <Jorge Beebe - Last Filed: 06/27/23 13:26> - General Source: patient, family, EMS, RN notes reviewed, old records reviewed Mode of arrival: EMS Limitations: altered mental status, physical limitation - History of Present Illness MD Complaint: altered mental status, other (Psychosis) -: unknown Associated Psychiatric Symptoms: racing thoughts, auditory hallucinations, visual hallucinations, delusions History of same: Yes Quality: constant Improves With: none Worsens With: none Context: significant life stressor Associated Symptoms: denies other symptoms Treatments Prior to Arrival: placed on mental health hold <Chadd Han - Last Filed: 07/04/23 21:07> - General Chief Complaint: Psychiatric Symptoms Stated Complaint: Psychiatric Time Seen by Provider: 06/26/23 19:48 - History of Present Illness Initial Comments: This is a 73-year-old female to the ER for evaluation of acute psychosis, patient is very concerned with horses, her dog dying, very paranoid that people are coming to get her. Patient was found wandering the neighborhood wandering in the [facility] (Chadd Han) - Related Data Home Medications Medication Instructions Recorded Confirmed Cholecalciferol [Vitamin D3 (125 125 mcg PO DAILY 06/12/23 06/26/23 Mcg = 5000 Iu)] amLODIPine [Norvasc] 5 mg PO DAILY 06/12/23 06/26/23 OLANZapine [ZyPREXA] 2.5 mg PO DAILY PRN 06/26/23 06/26/23 Previous Rx's Medication Instructions Recorded OLANZapine [ZyPREXA] 5 mg PO HS #60 tab 06/17/23 Allergies Allergy/AdvReac Type Severity Reaction Status Date / Time ibuprofen [From Motrin] Allergy Face Verified 06/26/23 20:26 Swelling oxaprozin [From Daypro] Allergy Unknown Verified 06/26/23 20:26 Penicillins Allergy Face Verified 06/26/23 20:26 Swelling Review of Systems ROS Other: All systems not noted in ROS Statement are negative. <Jorge Beebe - Last Filed: 06/27/23 13:26> ROS Other: All systems not noted in ROS Statement are negative. <Chadd Han - Last Filed: 07/04/23 21:07> ROS Statement: Those systems with pertinent positive or pertinent negative responses have been documented in the HPI. Past Medical History Past Medical History: Hypertension History of Any Multi-Drug Resistant Organisms: None Reported Past Surgical History: Cholecystectomy, Heart Catheterization With Stent Past Anesthesia/Blood Transfusion Reactions: No Reported Reaction Date of Last Stent Placement:: unknown Past Psychological History: Anxiety, Depression, Schizophrenia Smoking Status: Never smoker Past Alcohol Use History: Rare Past Drug Use History: Marijuana <Chadd Han - Last Filed: 07/04/23 21:07> General Exam Limitations: no limitations, altered mental status General appearance: alert, in no apparent distress Head exam: Present: atraumatic, normocephalic, normal inspection Eye exam: Present: normal appearance, PERRL, EOMI. Absent: scleral icterus, conjunctival injection, periorbital swelling ENT exam: Present: normal exam, mucous membranes moist Neck exam: Present: normal inspection. Absent: tenderness, meningismus, lymphadenopathy Respiratory exam: Present: normal lung sounds bilaterally. Absent: respiratory distress, wheezes, rales, rhonchi, stridor Cardiovascular Exam: Present: regular rate, normal rhythm, normal heart sounds. Absent: systolic murmur, diastolic murmur, rubs, gallop, clicks GI/Abdominal exam: Present: soft, normal bowel sounds. Absent: distended, tenderness, guarding, rebound, rigid Extremities exam: Present: normal inspection, full ROM, normal capillary refill. Absent: tenderness, pedal edema, joint swelling, calf tenderness Back exam: Present: normal inspection Neurological exam: Present: alert, oriented X3, CN II-XII intact Psychiatric exam: Present: normal affect, normal mood Skin exam: Present: warm, dry, intact, normal color. Absent: rash <Chadd Han - Last Filed: 07/04/23 21:07> Course <Chadd Han - Last Filed: 07/04/23 21:07> Vital Signs 06/26/23 06/27/23 19:03 07:51 Temperature 98.4 F 98 F Pulse Rate 88 79 Respiratory 18 18 Rate Blood Pressure 194/91 129/70 O2 Sat by Pulse 95 98 Oximetry - Reevaluation(s) Reevaluation #1: 06/26/23 22:58 Records reviewed (Chadd Han) Reevaluation #2: 06/26/23 22:58 Medically cleared for psychiatric evaluation (Chadd Han) Reevaluation #3: Was pt. sent in by a medical professional or institution (GRANT Diego, DEVELOPMENTAL PSYCHOLOGIST, urgent care, hospital, or skilled nursing...) When possible be specific @ -no Did you speak to anyone other than the patient for history (EMS, parent, family, police, friend...)? What history was obtained from this source @ -no Did you review nursing and triage notes (agree or disagree)? Why? @ -agree Are old charts reviewed (outside hosp., previous admission, EMS record, old EKG, old radiological studies, urgent care reports/EKG's, skilled nursing records)? Report findings @ -yes Differential Diagnosis (chest pain, altered mental status, abdominal pain women, abdominal pain men, vaginal bleeding, weakness, fever, dyspnea, syncope, headach e, dizziness, GI bleed, back pain, seizure, CVA, palpatations, mental health, musculoskeletal)? @ -prior EKG interpreted by me (3pts min.). @ -no X-rays interpreted by me (1pt min.). @ -no CT interpreted by me (1pt min.). @ -no U/S interpreted by me (1pt. min.). @ -no What testing was considered but not performed or refused? (CT, X-rays, U/S, labs)? Why? @ -none What meds were considered but not given or refused? Why? @ -none Did you discuss the management of the patient with other professionals (professionals i.e. GRANT Diego, DEVELOPMENTAL PSYCHOLOGIST, lab, RT, psych nurse, long term care social worker, marketing strategy lead, teacher, commercial loan officer, case mgr)? Give summary @ -no Was smoking cessation discussed for >3mins.? @ -no Was critical care preformed (if so, how long)? @ -no Were there social determinants of health that impacted care today? How? (Homelessness, low income, unemployed, alcoholism, drug addiction, transpor tation, low edu. Level, literacy, decrease access to med. care, penitentiary, rehab)? @ -none Was there de-escalation of care discussed even if they declined (Discuss DNR or withdrawal of care, Hospice)? DNR status @ -no What co-morbidities impacted this encounter? (DM, HTN, Smoking, COPD, CAD, Cancer, CVA, ARF, Chemo, Hep., AIDS, mental health diagnosis, sleep apnea, morbid obesity)? @ -none Was patient admitted / discharged? Hospital course, mention meds given and route, prescriptions, significant lab abnormalities, going to OR and other pertinent info. @ -73 female will need to be admitted for psychiatric evaluation and treatment Undiagnosed new problem with uncertain prognosis? @ -no Drug Therapy requiring intensive monitoring for toxicity (Heparin, Nitro, Insulin, Cardizem)? @ -no Were any procedures done? @ -no Diagnosis/symptom? @ -Acute psychosis Acute, or Chronic, or Acute on Chronic? @ -Acute Uncomplicated (without systemic symptoms) or Complicated (systemic symptoms)? @ -Complicated Side effects of treatment? @ -no Exacerbation, Progression, or Severe Exacerbation? @ -exacerbation Poses a threat to life or bodily function? How? (Chest pain, [place], [place], pneumonia, PE, COPD, DKA, ARF, appy, cholecystitis, CVA, Diverticulitis, Homicidal, Suicidal, threat to staff... and all critical care pts) @ -yes with extremes of age (Chadd Han) Reevaluation #4: Differential Altered Mental Status: Hypoglycemia, DKA, hypercapnia, ETOH, overdose, CO poisoning, trauma, myxedema coma, HTN encephalopathy, infection, encephalitis, psychosis, intercranial hemorrhage, hepatic encephalopathy, meningitis, CVA, this is not meant to be an all-inclusive list (Chadd Han) Medical Decision Making - Lab Data Result diagrams: 06/26/23 22:01 06/26/23 22:01 <Jorge Beebe - Last Filed: 06/27/23 13:26> - Lab Data Result diagrams: 06/26/23 22:01 06/28/23 05:34 <Chadd Han - Last Filed: 07/04/23 21:07> - Medical Decision Making I did discuss case with mental health nurse. They did state patient would not be admitted without neurology evaluation. I did speak with Dr. Narvaez and he does clear patient for psychiatric admission. Patient will be admitted to psychiatric floor. Diagnosis: Acute psychosis (Jorge Beebe) 73 female is psychiatric patient (Chadd Han) - Lab Data Lab Results 06/26/23 06/26/23 06/26/23 Range/Units 22:01 22:01 22:27 WBC 7.3 (3.8-10.6) k/uL RBC 4.67 (3.80-5.40) m/uL Hgb 14.1 (11.4-16.0) gm/dL Hct 43.4 (34.0-46.0) % MCV 92.9 (80.0-100.0) fL MCH 30.2 (25.0-35.0) pg MCHC 32.5 (31.0-37.0) g/dL RDW 13.8 (11.5-15.5) % Plt Count 204 (150-450) k/uL MPV 8.1 Neutrophils % 58 % Lymphocytes % 33 % Monocytes % 6 % Eosinophils % 2 % Basophils % 1 % Neutrophils # 4.2 (1.3-7.7) k/uL Lymphocytes # 2.4 (1.0-4.8) k/uL Monocytes # 0.4 (0-1.0) k/uL Eosinophils # 0.1 (0-0.7) k/uL Basophils # 0.1 (0-0.2) k/uL Sodium 140 (137-145) mmol/L Potassium 3.6 (3.5-5.1) mmol/L Chloride 109 H (98-107) mmol/L Carbon Dioxide 23 (22-30) mmol/L Anion Gap 8 mmol/L BUN 11 (7-17) mg/dL Creatinine 0.48 L (0.52-1.04) mg/dL Est GFR (CKD-EPI)AfAm >90 (>60 ml/min/1.73 sqM) Est GFR (CKD-EPI)NonAf >90 (>60 ml/min/1.73 sqM) Glucose 126 H (74-99) mg/dL Calcium 9.9 (8.4-10.2) mg/dL Phosphorus 3.4 (2.5-4.5) mg/dL Magnesium 2.1 (1.6-2.3) mg/dL Total Bilirubin 1.5 H (0.2-1.3) mg/dL AST 24 (14-36) U/L ALT 27 (4-34) U/L Alkaline Phosphatase 76 (38-126) U/L Ammonia 13 (<30) umol/L Total Protein 6.8 (6.3-8.2) g/dL Albumin 4.3 (3.5-5.0) g/dL TSH 8.690 H (0.465-4.680) mIU/L Urine Color Urine Appearance (Clear) Urine pH (5.0-8.0) Ur Specific [place] (1.001-1.035) Urine Protein (Negative) Urine Glucose (UA) (Negative) Urine Ketones (Negative) Urine Blood (Negative) Urine Nitrite (Negative) Urine Bilirubin (Negative) Urine Urobilinogen (<2.0) mg/dL Ur Leukocyte Esterase (Negative) Urine RBC (0-5) /hpf Urine WBC (0-5) /hpf Ur Squamous Epith Cells (0-4) /hpf Urine Mucus (None) /hpf Salicylates <1.0 mg/dL Urine Opiates Screen (NotDetected) Ur Oxycodone Screen (NotDetected) Urine Methadone Screen (NotDetected) Acetaminophen <10.0 ug/mL Ur Barbiturates Screen (NotDetected) U Tricyclic Antidepress (NotDetected) Ur Phencyclidine Scrn (NotDetected) Ur Amphetamines Screen (NotDetected) U Methamphetamines Scrn (NotDetected) U Benzodiazepines Scrn (NotDetected) Urine Cocaine Screen (NotDetected) U Marijuana (THC) Screen (NotDetected) Serum Alcohol <10 mg/dL SARS-CoV-2 (PCR) (Not Detectd) 06/27/23 06/27/23 Range/Units 05:54 14:19 WBC (3.8-10.6) k/uL RBC (3.80-5.40) m/uL Hgb (11.4-16.0) gm/dL Hct (34.0-46.0) % MCV (80.0-100.0) fL MCH (25.0-35.0) pg MCHC (31.0-37.0) g/dL RDW (11.5-15.5) % Plt Count (150-450) k/uL MPV Neutrophils % % Lymphocytes % % Monocytes % % Eosinophils % % Basophils % % Neutrophils # (1.3-7.7) k/uL Lymphocytes # (1.0-4.8) k/uL Monocytes # (0-1.0) k/uL Eosinophils # (0-0.7) k/uL Basophils # (0-0.2) k/uL Sodium (137-145) mmol/L Potassium (3.5-5.1) mmol/L Chloride (98-107) mmol/L Carbon Dioxide (22-30) mmol/L Anion Gap mmol/L BUN (7-17) mg/dL Creatinine (0.52-1.04) mg/dL Est GFR (CKD-EPI)AfAm (>60 ml/min/1.73 sqM) Est GFR (CKD-EPI)NonAf (>60 ml/min/1.73 sqM) Glucose (74-99) mg/dL Calcium (8.4-10.2) mg/dL Phosphorus (2.5-4.5) mg/dL Magnesium (1.6-2.3) mg/dL Total Bilirubin (0.2-1.3) mg/dL AST (14-36) U/L ALT (4-34) U/L Alkaline Phosphatase (38-126) U/L Ammonia (<30) umol/L Total Protein (6.3-8.2) g/dL Albumin (3.5-5.0) g/dL TSH (0.465-4.680) mIU/L Urine Color Colorless Urine Appearance Clear (Clear) Urine pH 6.5 (5.0-8.0) Ur Specific [place] 1.008 (1.001-1.035) Urine Protein Negative (Negative) Urine Glucose (UA) Negative (Negative) Urine Ketones Negative (Negative) Urine Blood Negative (Negative) Urine Nitrite Negative (Negative) Urine Bilirubin Negative (Negative) Urine Urobilinogen <2.0 (<2.0) mg/dL Ur Leukocyte Esterase Small H (Negative) Urine RBC 1 (0-5) /hpf Urine WBC 6 H (0-5) /hpf Ur Squamous Epith Cells <1 (0-4) /hpf Urine Mucus Rare H (None) /hpf Salicylates mg/dL Urine Opiates Screen Not Detected (NotDetected) Ur Oxycodone Screen Not Detected (NotDetected) Urine Methadone Screen Not Detected (NotDetected) Acetaminophen ug/mL Ur Barbiturates Screen Not Detected (NotDetected) U Tricyclic Antidepress Not Detected (NotDetected) Ur Phencyclidine Scrn Not Detected (NotDetected) Ur Amphetamines Screen Not Detected (NotDetected) U Methamphetamines Scrn Not Detected (NotDetected) U Benzodiazepines Scrn Not Detected (NotDetected) Urine Cocaine Screen Not Detected (NotDetected) U Marijuana (THC) Screen Not Detected (NotDetected) Serum Alcohol mg/dL SARS-CoV-2 (PCR) Not Detected (Not Detectd) Disposition Is patient prescribed a controlled substance at d/c from ED?: No Time of Disposition: 13:26 <Jorge Beebe - Last Filed: 06/27/23 13:26> Is patient prescribed a controlled substance at d/c from ED?: No <Chadd Han - Last Filed: 07/04/23 21:07> Clinical Impression: Psychosis, Acute psychosis Disposition: TRANSFER TO PSYCH HOSP/UNIT
[2023-06-26] MEDS: HALOPERIDOL LACTATE 5 MG/ML 1 ML VIAL IM STA (21:12)
[2023-06-26] MEDS: SODIUM CHLORIDE 0.9% 1,000 ML IV STA (21:46)
[2023-06-26 22:20] LABS: Basophils # (A) 0.1 k/uL (0-0.2); Basophils % (A) 1 %; Eosinophils # (A) 0.1 k/uL (0-0.7); Eosinophils % (A) 2 %; HCT 43.4 % (34.0-46.0); HGB 14.1 gm/dL (11.4-16.0); Lymphocytes # (A) 2.4 k/uL (1.0-4.8); Lymphocytes % (A) 33 %; MCH 30.2 pg (25.0-35.0); MCHC 32.5 g/dL (31.0-37.0); MCV 92.9 fL (80.0-100.0); Mean Platelet Volume 8.1; Monocytes # (A) 0.4 k/uL (0-1.0); Monocytes % (A) 6 %; Neutrophils # (A) 4.2 k/uL (1.3-7.7); Neutrophils % (A) 58 %; Platelet Count 204 k/uL (150-450); RBC 4.67 m/uL (3.80-5.40); RDW 13.8 % (11.5-15.5); WBC 7.3 k/uL (3.8-10.6)
[2023-06-26 22:52] LABS: ALT 27 U/L (4-34); AST 24 U/L (14-36); Acetaminophen <10.0 ug/mL; African American GFR (CKD) >90 (>60 ml/min/1.73 sqM); Albumin 4.3 g/dL (3.5-5.0); Alcohol <10 mg/dL; Alkaline Phosphatase 76 U/L (38-126); Anion Gap 8 mmol/L; Blood Urea Nitrogen 11 mg/dL (7-17); Calcium 9.9 mg/dL (8.4-10.2); Carbon Dioxide 23 mmol/L (22-30); Chloride 109 mmol/L (98-107); Glucose 126 mg/dL (74-99); Magnesium 2.1 mg/dL (1.6-2.3); Non-African American GFR(CKD) >90 (>60 ml/min/1.73 sqM); Phosphorus 3.4 mg/dL (2.5-4.5); Potassium 3.6 mmol/L (3.5-5.1); Salicylate <1.0 mg/dL; Sodium 140 mmol/L (137-145); Total Bilirubin 1.5 mg/dL (0.2-1.3); Total Protein 6.8 g/dL (6.3-8.2)
[2023-06-27 06:16] LABS: Appearance,Urine Clear (Clear); Bilirubin,Urine Negative (Negative); Blood,Urine Negative (Negative); Color,Urine Colorless; Glucose,Urine (UA) Negative (Negative); Ketones,Urine Negative (Negative); Leukocyte Esterase,Urine Small (Negative); Mucus,Urine Rare /hpf; Nitrite,Urine Negative (Negative); PH, Urine 6.5 (5.0-8.0); Protein,Urine Negative (Negative); RBC,Urine 1 /hpf (0-5); Specific Gravity,Urine 1.008 (1.001-1.035); Squamous Epithelial Cell,Urine <1 /hpf (0-4); Urobilinogen,Urine <2.0 mg/dL (<2.0); WBC,Urine 6 /hpf (0-5)
[2023-06-27 06:19] LABS: Amphetamine Screen,Urine Not Detected (NotDetected); Barbiturate Screen,Urine Not Detected (NotDetected); Benzodiazepines Screen,Urine Not Detected (NotDetected); Cocaine Screen,Urine Not Detected (NotDetected); Methadone Screen, Urine Not Detected (NotDetected); Opiate Screen,Urine Not Detected (NotDetected); Oxycodone Screen, Urine Not Detected (NotDetected); Phencyclidine Screen,Urine Not Detected (NotDetected); Tricyclic Antidepressant,Urine Not Detected (NotDetected); Urn Cannabinoid Scrn Not Detected (NotDetected)
--- NOTE | 2023-06-27 13:38 | P.CNNES ---
History of Present Illness Consult date: 06/27/23 Requesting physician: Jorge Beebe Reason for Consult: Altered mental status neuro evaluation History of Present Illness: Patient is a 73-year-old right-handed female with history of anxiety, depression, was brought to the hospital by ambulance yesterday at 6:55 PM. As per EMS flowsheet, they were called for patient having a "mental breakdown". Patient was apparently running off into the frost, before PD could arrive. The patient brought herself out of the [facility] and approached EMS. Patient was found to be alert and oriented x 2. Patient was not aggressive and stated she did not want to go to the hospital after speaking with the patient and her guardian, patient agreed to go to the hospital for evaluation. Patient struggled to form sentences that made sense. Patient's blood pressure was 183/88, pulse rate 98, respiration 20, saturation 95%. Blood test shows normal CBC, normal CMP, TSH is elevated 8.69. UA negative. Urine drug screen negative. Blood alcohol level negative. Patient had a CT head performed previously 05/23/2023 which revealed no acute intracranial process. It was performed for altered mental status. Patient had a 2D echo performed 06/16/2023 which revealed normal left ventricular systolic function with EF 60 to 65%. Normal right atrial size. Severely increased left atrial volume. No valvular abnormalities. Patient was being considered for admission to psych unit, however the psychiatrist recommended neurological clearance. I came to see the patient. Patient is sitting comfortably in the bed, in no acute distress, with normal affect. Patient states that she came here because "everything was going crazy". She admits to having anxiety problem and some depression. She lives alone by herself, has no children, never . Patient states that she was walking in the [facility] with her friend and apparently they were walking through the best friend's neighbor property, talking about her anxiety and recent admission. She apparently while walking threw a Pepsi can, while walking across the street. The friend thought that she was angry although she was not. Patient then tells a great deal about her dog who is very old 17-1/2 years old, blind and very concerned that he may have because her sister was not taking care of her. She also has 2 horses, one of them she owns and the other 1 her sister owns, the when she owns is 28-year-old and is declining. She is concerned that no one gave the horses water that they should and they may have . Patient denies any headache, any focal neurological symptoms like slurred speech, double vision, loss of vision, facial droop, focal weakness, numbness tingling. Patient has been seen by Dr. Barone years in the past, and has been diagnosed with psychosis unspecified, major neurocognitive disorder. Patient was felt not to have decision-making capacity. Patient denies any history of stroke, TIA or any history of seizure. Patient complains of having anxiety, and "time to time feels depressed". Patient has never smoked, does not drink alcohol. Patient admits to having hypertension but denies diabetes or hyperlipidemia. Review of Systems Constitutional: Denies chills, Denies fever Eyes: denies blurred vision, denies diplopia, denies pain, denies loss of peripheral vision Ears: deny: decreased hearing (water left ear a little), ear discharge Ears, nose, mouth and throat: Denies headache, Denies sore throat, Denies vertigo Cardiovascular: Denies chest pain, Denies lightheadedness, Denies shortness of breath Respiratory: Denies cough, Denies excessive sputum Gastrointestinal: Denies abdominal pain, Denies diarrhea (litle loose stool when nervous), Denies nausea, Denies vomiting Genitourinary: Denies dysuria, Denies hematuria, Denies urge incontinence, Den ies urgency Musculoskeletal: Denies low back pain, Denies neck pain Integumentary: Denies pruritus, Denies rash Neurological: Reports as per HPI Psychiatric: Reports anxiety, Reports depression Hematologic/Lymphatic: Denies easy bleeding, Denies easy bruising Past Medical History Past Medical History: Hypertension History of Any Multi-Drug Resistant Organisms: None Reported Past Surgical History: Cholecystectomy, Heart Catheterization With Stent Past Anesthesia/Blood Transfusion Reactions: No Reported Reaction Date of Last Stent Placement:: unknown Past Psychological History: Anxiety, Depression, Schizophrenia Smoking Status: Never smoker Past Alcohol Use History: Rare Past Drug Use History: Marijuana Medications and Allergies Home Medications Medication Instructions Recorded Confirmed Type Cholecalciferol [Vitamin D3 (125 125 mcg PO DAILY 06/12/23 06/26/23 History Mcg = 5000 Iu)] amLODIPine [Norvasc] 5 mg PO DAILY 06/12/23 06/26/23 History OLANZapine [ZyPREXA] 5 mg PO HS #60 tab 06/17/23 06/26/23 Rx OLANZapine [ZyPREXA] 2.5 mg PO DAILY PRN 06/26/23 06/26/23 History Allergies Allergy/AdvReac Type Severity Reaction Status Date / Time ibuprofen [From Motrin] Allergy Face Verified 06/26/23 20:26 Swelling oxaprozin [From Daypro] Allergy Unknown Verified 06/26/23 20:26 Penicillins Allergy Face Verified 06/26/23 20:26 Swelling Physical Examination - Vital Signs Vital Signs: Vital Signs Temp Pulse Resp BP Pulse Ox 06/27/23 07:51 98 F 79 18 129/70 98 06/26/23 19:03 98.4 F 88 18 194/91 95 Intake and Output 06/26/23 06/27/23 06/27/23 22:59 06:59 14:59 Other: Weight 74.843 kg Patient is an elderly female, very pleasant, in no acute distress. Patient is alert awake, fully oriented to time place and person. Patient knows it is June 2023, Thursday and that she is in [facility] in [facility]. She knows it is spring and name of the current president Mr. Grossman. Speech and language functions are normal. Patient can n effie and repeat very well. No aphasia or dysarthria. Attention, concentration and fund of knowledge is adequate. Her affect appears normal, although sometimes she goes tangential and starts talking about her horses and dog. On cranial nerve examination, pupils are equal, round and reacting to light, visual mandujano are full on confrontation, with no neglect on double simultaneous stimulation. Extraocular muscles are intact with no nystagmus. Face is symmetric, tongue protrudes to the midline. Palatal elevation and sensation normal, hearing and shoulder shrug normal, facial sensation normal. On muscle strength testing, there is no pronator drift and the strength is normal in arms and legs distally and proximally. Deep tendon reflexes are (right/left)biceps 1+/1+, brachioradialis 1/1, knees 2/1, ankle 1/1 and plantars downgoing bilaterally. Sensory to touch is equal with no neglect on double simultaneous stimulation. Cerebellar function showed no ataxia for [id number] testing. No dysdiadochokinesia. No ataxia for [id number] testing on either side. Tone and bulk of muscles normal. Gait deferred.. On general examination, there is no carotid bruit heard on either side or murmur, S1-S2 audible. Chest is clear on consultation. Abdomen is soft nontender. No organomegaly, bowel sounds present. Peripheral pulses are present. Mild peripheral edema. Results - Laboratory Findings CBC and BMP: 06/26/23 22:01 06/26/23 22:01 Abnormal Lab Findings: Abnormal Labs 06/26/23 06/27/23 22:01 05:54 Chloride 109 H Creatinine 0.48 L Glucose 126 H Total Bilirubin 1.5 H TSH 8.690 H Ur Leukocyte Esterase Small H Urine WBC 6 H Urine Mucus Rare H Assessment and Plan Assessment: * Altered mental status, most likely related to psychiatric condition. Patient's neurological examination is completely normal, nonfocal. Patient is fully oriented. Patient denies headache, and has no neurological symptoms. * Anxiety, depression * Hypertension * Hypothyroidism Plan: * Patient's neurological examination is normal. She has no neurological symptoms at all. * No other neurological workup indicated. * Patient's thyroid functions are slightly off, would defer to IM. * Ammonia 13 normal, hemoglobin A1c 6.1, LDL 100. * Blood pressure was elevated on arrival, but now is normal. Will defer to IM to address blood pressure. * Neurologically clear for transfer to psych unit. * Please reconsult neurology if any concerns. * Thank you for the consultation.
[2023-06-27] MEDS ORDERED: MAG HYDROX/AL HYDROX/SIMETH 355 ML BOTTLE PO PRN (18:45)
[2023-06-27] MEDS ORDERED: ACETAMINOPHEN TAB 325 MG TAB PO PRN (18:45)
[2023-06-27] MEDS ORDERED: OLANZapine 10 MG VIAL IM PRN (18:45)
[2023-06-27] MEDS ORDERED: OLANZapine 5 MG TAB PO PRN (18:45)
[2023-06-27] MEDS: OLANZapine 5 MG TAB PO SCH (21:35)
--- NOTE | 2023-06-28 02:17 | P.CONS ---
History of Present Illness - Reason for Consult Consult date: 06/28/23 - History of Present Illness The patient is a 73-year-old female with a PMH of hypertension and anxiety who was brought into the emergency room for strange thoughts and hallucinations. The patient was admitted to the mental health unit where she was seen and evaluated. The patient had reportedly been found wandering the neighborhood and subsequently brought to the emergency room. She denied any physical complaints at the time of interview. She denied tobacco, illicit substance, or alcohol use. Denied experiencing chest discomfort, shortness of breath, fever, chills, cough, nausea, vomiting, abdominal pain, diarrhea. Reports compliance with her medications at home Review of systems: Pertinent positives and negatives as discussed in HPI, a complete review of systems was performed and all other systems are negative. Physical examination: General: non toxic, no distress, appears at stated age, normal weight Derm: no unusual rashes/lesions, no unusual ecchymoses, warm, dry Head: atraumatic, normocephalic, symmetric Eyes: EOMI, no lid lag, anicteric sclera ENT: Nose and ears atraumatic, no thrush, no pharyngeal erythema Neck: trachea midline, supple Mouth: no lip lesion, mucus membranes moist Cardiovascular: S1S2 reg, no murmur, no edema Lungs: CTA bilateral, no rhonchi, no rales , no accessory muscle use Abdominal: soft, nontender to palpation, no guarding Ext: no gross muscle atrophy, no contractures, Neuro: No gross focal neuro deficits noted Psych: Alert, oriented, appropriate affect Assessment: Elevated TSH Elevated total bilirubin Hyperglycemia Chronic conditions: Hypertension Psychosis Imaging: None performed Data Review: Reviewed with WBC co recent hemoglobin A1c levels unt 7.3, hemoglobin 14.1, TSH 8.690, UA unremarkable, urine toxicology unremarkable, with total bilirubin 1.5 Plan: Free T4 levels 0.99 from 06/11 Monitor T. bili levels for now and consider RUQ ultrasound if persistently elevated Recent hemoglobin A1c level was 5.9 Resume home antihypertensives Defer management of psychosis to primary psychiatry service Thank you for allowing us to participate in the care of this patient. We will follow peripherally. Do not hesitate to contact us with questions. Someone can be reached from the [facility] hospitalist group at all hours of the day at [phone]. Past Medical History Past Medical History: Hypertension Additional Past Medical History / Comment(s): Fall with head injury 05/21/23 History of Any Multi-Drug Resistant Organisms: None Reported Past Surgical History: Cholecystectomy, Heart Catheterization With Stent Past Anesthesia/Blood Transfusion Reactions: No Reported Reaction Date of Last Stent Placement:: unknown Past Psychological History: Anxiety, Depression, Schizophrenia Smoking Status: Never smoker Past Alcohol Use History: Rare Past Drug Use History: None Reported Medications and Allergies Home Medications Medication Instructions Recorded Confirmed Type Cholecalciferol [Vitamin D3 (125 125 mcg PO DAILY 06/12/23 06/26/23 History Mcg = 5000 Iu)] amLODIPine [Norvasc] 5 mg PO DAILY 06/12/23 06/26/23 History OLANZapine [ZyPREXA] 5 mg PO HS #60 tab 06/17/23 06/26/23 Rx OLANZapine [ZyPREXA] 2.5 mg PO DAILY PRN 06/26/23 06/26/23 History Allergies Allergy/AdvReac Type Severity Reaction Status Date / Time ibuprofen [From Motrin] Allergy Face Verified 06/26/23 20:26 Swelling oxaprozin [From Daypro] Allergy Unknown Verified 06/26/23 20:26 Penicillins Allergy Face Verified 06/26/23 20:26 Swelling Physical Exam Vitals: Vital Signs Temp Pulse Pulse Resp BP BP Pulse Ox 06/27/23 19:01 98.2 F 77 16 138/67 06/27/23 18:57 98.2 F 77 16 138/67 06/27/23 18:09 97.6 F 90 16 126/82 98 06/27/23 07:51 98 F 79 18 129/70 98 Intake and Output 06/27/23 06/27/23 06/28/23 14:59 22:59 06:59 Other: Weight 74.5 kg Results CBC & Chem 7: 06/26/23 22:01 06/26/23 22:01 Labs: Abnormal Lab Results - Last 24 Hours (Table) 06/27/23 Range/Units 05:54 Ur Leukocyte Esterase Small H (Negative) Urine WBC 6 H (0-5) /hpf Urine Mucus Rare H (None) /hpf
[2023-06-28 06:27] LABS: ALT 24 U/L (4-34); AST 20 U/L (14-36); African American GFR (CKD) >90 (>60 ml/min/1.73 sqM); Albumin 3.5 g/dL (3.5-5.0); Alkaline Phosphatase 61 U/L (38-126); Anion Gap 3 mmol/L; Blood Urea Nitrogen 12 mg/dL (7-17); Calcium 9.7 mg/dL (8.4-10.2); Carbon Dioxide 26 mmol/L (22-30); Chloride 110 mmol/L (98-107); Glucose 85 mg/dL (74-99); Non-African American GFR(CKD) >90 (>60 ml/min/1.73 sqM); Sodium 139 mmol/L (137-145); Total Bilirubin 1.1 mg/dL (0.2-1.3); Total Protein 5.7 g/dL (6.3-8.2)
[2023-06-28 06:42] LABS: T4, Free (Free Thyroxine) 0.84 ng/dL (0.78-2.19)
[2023-06-28] MEDS: amLODIPine 5 MG TAB PO SCH (08:57)
[2023-06-28] MEDS: CHOLECALCIFEROL 125 MCG (5000 IU) TABLET PO SCH (08:57)
--- NOTE | 2023-06-28 11:37 | P.HP ---
Psychiatric H&P - . H&P Date: 06/28/23 History & Physical: Allergies Allergy/AdvReac Type Severity Reaction Status Date / Time ibuprofen [From Motrin] Allergy Face Verified 06/26/23 20:26 Swelling oxaprozin [From Daypro] Allergy Unknown Verified 06/26/23 20:26 Penicillins Allergy Face Verified 06/26/23 20:26 Swelling Vital Signs Temp 97.8 F 06/28/23 06:48 Pulse 61 06/28/23 06:48 Resp 14 06/28/23 06:48 BP 118/57 06/28/23 06:48 Pulse Ox 96 06/28/23 06:48 FiO2 Intake & Output 06/27/23 06/28/23 06/28/23 18:59 06:59 18:59 Weight 74.5 kg 74.5 kg 73.346 kg Laboratory Last Values WBC 7.3 k/uL (3.8-10.6) 06/26/23 22:01 RBC 4.67 m/uL (3.80-5.40) 06/26/23 22:01 Hgb 14.1 gm/dL (11.4-16.0) 06/26/23 22:01 Hct 43.4 % (34.0-46.0) 06/26/23 22:01 MCV 92.9 fL (80.0-100.0) 06/26/23 22:01 MCH 30.2 pg (25.0-35.0) 06/26/23 22:01 MCHC 32.5 g/dL (31.0-37.0) 06/26/23 22:01 RDW 13.8 % (11.5-15.5) 06/26/23 22:01 Plt Count 204 k/uL (150-450) 06/26/23 22:01 MPV 8.1 06/26/23 22:01 Neutrophils % 58 % 06/26/23 22:01 Lymphocytes % 33 % 06/26/23 22:01 Monocytes % 6 % 06/26/23 22:01 Eosinophils % 2 % 06/26/23 22:01 Basophils % 1 % 06/26/23 22:01 Neutrophils # 4.2 k/uL (1.3-7.7) 06/26/23 22:01 Lymphocytes # 2.4 k/uL (1.0-4.8) 06/26/23 22:01 Monocytes # 0.4 k/uL (0-1.0) 06/26/23 22:01 Eosinophils # 0.1 k/uL (0-0.7) 06/26/23 22:01 Basophils # 0.1 k/uL (0-0.2) 06/26/23 22:01 Sodium 139 mmol/L (137-145) 06/28/23 05:34 Potassium 4.0 mmol/L (3.5-5.1) 06/28/23 05:34 Chloride 110 mmol/L (98-107) H 06/28/23 05:34 Carbon Dioxide 26 mmol/L (22-30) 06/28/23 05:34 Anion Gap 3 mmol/L 06/28/23 05:34 BUN 12 mg/dL (7-17) 06/28/23 05:34 Creatinine 0.57 mg/dL (0.52-1.04) 06/28/23 05:34 Est GFR (CKD-EPI)AfAm >90 (>60 ml/min/1.73 sqM) 06/28/23 05:34 Est GFR (CKD-EPI)NonAf >90 (>60 ml/min/1.73 sqM) 06/28/23 05:34 Glucose 85 mg/dL (74-99) 06/28/23 05:[address] Glu mg/dL 126 mg/dL 06/28/23 05:34 Hemoglobin A1c 6.0 % (<=6.0) 06/28/23 05:34 Calcium 9.7 mg/dL (8.4-10.2) 06/28/23 05:34 Phosphorus 3.4 mg/dL (2.5-4.5) 06/26/23 22:01 Magnesium 2.1 mg/dL (1.6-2.3) 06/26/23 22:01 Total Bilirubin 1.1 mg/dL (0.2-1.3) 06/28/23 05:34 AST 20 U/L (14-36) 06/28/23 05:34 ALT 24 U/L (4-34) 06/28/23 05:34 Alkaline Phosphatase 61 U/L (38-126) 06/28/23 05:34 Ammonia 13 umol/L (<30) 06/26/23 22:27 Total Protein 5.7 g/dL (6.3-8.2) L 06/28/23 05:34 Albumin 3.5 g/dL (3.5-5.0) 06/28/23 05:34 TSH 8.690 mIU/L (0.465-4.680) H 06/26/23 22:01 Free T4 0.84 ng/dL (0.78-2.19) 06/28/23 05:34 Urine Color Colorless 06/27/23 05:54 Urine Appearance Clear (Clear) 06/27/23 05:54 Urine pH 6.5 (5.0-8.0) 06/27/23 05:54 Ur Specific Clarence 1.008 (1.001-1.035) 06/27/23 05:54 Urine Protein Negative (Negative) 06/27/23 05:54 Urine Glucose (UA) Negative (Negative) 06/27/23 05:54 Urine Ketones Negative (Negative) 06/27/23 05:54 Urine Blood Negative (Negative) 06/27/23 05:54 Urine Nitrite Negative (Negative) 06/27/23 05:54 Urine Bilirubin Negative (Negative) 06/27/23 05:54 Urine Urobilinogen <2.0 mg/dL (<2.0) 06/27/23 05:54 Ur Leukocyte Esterase Small (Negative) H 06/27/23 05:54 Urine RBC 1 /hpf (0-5) 06/27/23 05:54 Urine WBC 6 /hpf (0-5) H 06/27/23 05:54 Ur Squamous Epith Cells <1 /hpf (0-4) 06/27/23 05:54 Urine Mucus Rare /hpf (None) H 06/27/23 05:54 Salicylates <1.0 mg/dL 06/26/23 22:01 Urine Opiates Screen Not Detected (NotDetected) 06/27/23 05:54 Ur Oxycodone Screen Not Detected (NotDetected) 06/27/23 05:54 Urine Methadone Screen Not Detected (NotDetected) 06/27/23 05:54 Acetaminophen <10.0 ug/mL 06/26/23 22:01 Ur Barbiturates Screen Not Detected (NotDetected) 06/27/23 05:54 U Tricyclic Antidepress Not Detected (NotDetected) 06/27/23 05:54 Ur Phencyclidine Scrn Not Detected (NotDetected) 06/27/23 05:54 Ur Amphetamines Screen Not Detected (NotDetected) 06/27/23 05:54 U Methamphetamines Scrn Not Detected (NotDetected) 06/27/23 05:54 U Benzodiazepines Scrn Not Detected (NotDetected) 06/27/23 05:54 Urine Cocaine Screen Not Detected (NotDetected) 06/27/23 05:54 U Marijuana (THC) Screen Not Detected (NotDetected) 06/27/23 05:54 Serum Alcohol <10 mg/dL 06/26/23 22:01 SARS-CoV-2 (PCR) Not Detected (Not Detectd) 06/27/23 14:19 06/28/23 11:28 this is a psychiatric assessment on the [id number] female who was hospitalized for mental status changes According to the sister the patient has had a fall for which she was hospitalized about a month ago Patient Susanstarted to show peers of confusion and some delusional thinking There also appears to be documentation from Dr. BARONE regarding patient diagnosed with psychosis years ago and schizophrenia? 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 She also reports that her father was working for the fire department for 20+ years She said that she owns 2 homes and that she also took care of her mother until she She denies any auditory or visual hallucinations She denies any thoughts of wanting to hurt herself or others She denies seeing a psychiatrist for any psychiatric follow-up She denies any thoughts of wanting to herself or others Findings and except for the assessment done by the neurologist which contributes to some more history: ''Patient is a 73-year-old right-handed female with history of anxiety, depression, was brought to the hospital by ambulance yesterday at 6:55 PM. As per EMS flowsheet, they were called for patient having a "mental breakdown". Patient was apparently running off into the frost, before PD could arrive. The patient brought herself out of the frost and approached EMS. Patient was found to be alert and oriented x 2. Patient was not aggressive and stated she did not want to go to the hospital after speaking with the patient and her guardian, patient agreed to go to the hospital for evaluation. Patient struggled to form sentences that made sense.' Patient states that she came here because "everything was going crazy". She admits to having anxiety problem and some depression. She lives alone by herself, has no children, never . Patient states that she was walking in the [facility] with her friend and apparently they were walking through the best friend's neighbor property, talking about her anxiety and recent admission. She apparently while walking threw a Pepsi can, while walking across the street. The friend thought that she was angry although she was not. Patient then tells a great deal about her dog who is very old 17-1/2 years old, blind and very concerned that he may have because her sister was not taking care of her. She also has 2 horses, one of them she owns and the other 1 her sister owns, the when she owns is 28-year-old and is declining. She is concerned that no one gave the horses water that they should and they may have . Patient denies any headache, any focal neurological symptoms like slurred speech, double vision, loss of vision, facial droop, focal weakness, numbness tingling. Patient has been seen by Dr. Barone years in the past, and has been diagnosed with psychosis unspecified, major neurocognitive disorder. Patient was felt not to have decision-making capacity. Patient denies any history of stroke, TIA or any history of seizure. Patient complains of having anxiety, and "time to time feels depressed". Patient has never smoked, does not drink alcohol. Patient admits to having hypertension but denies diabetes or hyperlipidemia. 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 Patient appears to have fair hygiene and grooming. Behavior: Patient is standing without any agitated behavior. Speech: Patient's speech is fluent and Circumstantial Mood/Affect: patient reports that she has a history of anxiety but that she feels fine at this time Suicidality/Homicidality: Patient denies having any homicidal ideation intent or plan. Denies any suicidal ideations intent or plan at this time Perceptions: No auditory or visual hallucinations Though content/process: There is no evidence of any delusional thought content and thought process is abstract Memory and concentration: AOX3, grossly intact for the purposes of this session. Judgment and insight: impaired diagnostic impression: Adjustment disorder with mixed emotional features Schizophrenia by history Rule out major neurocognitive disorder mild state closed head injury? Anxiety disorder unspecified sTRENGTHS/WEAKNESSES: Strength is that the patient is resilient. Patient has family support Weakness is that the patient has mental illness INTELLECT: average Plan: The patient will be hospitalized on the unit for further evaluation and treatment Therapy will be focused on providing supportive care improving his coping abilities with a multimodal treatment Patient will also participate in on the shell activities individual milieu group OT RT PT and pharmacotherapy Approximately length of stay would be 7-10 days Will continue on home medicationswe do not have any clear idea about her current medications except for buspirone Patient was also started on Zyprexa at the time of admission due to the reports on psychotic symptoms Monitor for any interactions or side effects Patient was briefed on the effects and side effects of the medication which she appears to understood well Maintain appropriate safety precautions and supportive care bibliographic services specialist will be involved for appropriate discharge planning patient will be encouraged to parts been on the shell activities Baron Self M.D.
[2023-06-28] MEDS: ARTIFICIAL TEARS-HYPROMELLOSE DROPS 15 ML BTL BOTH EYES PRN (15:13)
[2023-06-29] MEDS: DIVALPROEX SPRINKLE 125 MG CAP.SPRINK PO SCH (21:26)
--- NOTE | 2023-06-29 21:46 | P.PN ---
Progress Note - Text Progress Note Date: 06/29/23 In-Patient Follow-up Chief Complaint: I do not know; there are no windows to know time. There should be a clock up high for the day and time Subjective: The patient was talking rapidly and not making much sense. Sometimes she was able to put things together for certain subjects. She did give coherent history of her medical issues, especially about stent placement and hypertension. She was very difficult to redirect. She indicated having a fall and being concerned about closed head injury. She talked about her water proofer, who is an ex-felon and possess gun. She thinks he is going to occupy her 4-bedroom [place]. She gave me permission to talk to her sister. As per sister, the patient started showing change in her speech around holidays in January and early February. She was speaking rapidly but coherently. She also started writing on papers to remind her things she does, however this was very disorganized. She would write the same things in different places. She also wrote thing on her hand. As per sister, it was quite disorganized. She had a fall about 2-3 weeks ago. After the fall, the patient was ok for two weeks and then became very paranoid. She called police three times to check her house and surrounding area because there are people trying to get in to her house and are hiding in the bushes. Also, her speech continued to be rapid but became incoherent. She was seen at [facility]. The psychiatrist there recommended that patient should have complete neurological work-up. According to staff, here, the patient has been admitted to this [facility]HU few times and one time had to be transferred to medical floor after a syncope. The patient had one CT scan after the fall, which was normal. No scan was repeated after 24 hours. She has no other neurological work-up to R/O organic causes of psychosis and R/O possible Dementia. The patient mother developed Vascular Dementia at age 79. The patient has no past h/o psychiatric disorder. Her symptoms began end of last year and early this year. She does show deficit in short-term memory. Complete evaluation of cognition can not be done due to thought disorder. Overall, the patient is showing memory impairment, behavioral changes a with paranoid delusions and significant thought disorder. Leading questions: The patient denied Depression and Anxiety but expressed concern about her house. Denied SI or HI. Denied symptoms consistent with psychosis Sleep and Appetite: Fair. Interim History: Behavioral Changes: PRN meds/isolation/restraints/ change in status: None. Change in medical condition: No change. Change in medications: No change. Side effects from Medications: None. Objective- MSE: Alert and attentive. Orientation x2 Dressed and Groomed: Appropriately. Pleasant and cooperative. Psychomotor Activity: Normal. Speech: Normal in tone, quality, hyperverbal with push of speech. Mood: Anxious. Affect: Worried. SI or HI: None. Perceptual disturbance: No hallucinatory behavior noted. Thought Content: Paranoid delusions. or other delusional thinking noted. Thought Process: Loose associations, flight of ideas, disorganized, Cognition: distractibility, decreased concentration and attention, recent memory impaired, mildly compromised higher cognitive functions. Overall, mild decline in cognitive functions. Judgment and Insight: Poor. AIMS: Normal. Labs: Available labs reviewed, Diagnosis: Mood Disorder secondary to general medical condition. Possible late onset koby. Neurocognitive impairment. Plan and recommendation: Depakote 125 mg po tid. Monitor MS and side effects of medications and adjust medications accordingly. Provide supportive psychotherapy. The patient provided psychoeducation. The patient to continue attending the shell activities. CBC with Diff, CMP, TSH, Lipid Profile, HbA1c, EKG ordered. Medication Consent with explanation of risk/benefits and side effects: Explained and obtained.
[2023-06-30 08:57] LABS: Chol/HDL Ratio 2.84 Ratio; LDL Cholesterol,Calculated 98.8 mg/dL (0.0-131.0); VLDL Calculation 18.36 mg/dL (5.00-40.00)
[2023-06-30] MEDS: DIVALPROEX SPRINKLE 125 MG CAP.SPRINK PO SCH (16:20)
[2023-06-30] MEDS ORDERED: DIVALPROEX SPRINKLE 125 MG CAP.SPRINK PO SCH (21:00)
[2023-06-30] MEDS: OLANZapine 7.5 MG TAB PO SCH (21:01)
--- NOTE | 2023-06-30 22:11 | P.PN ---
Progress Note - Text Progress Note Date: 06/30/23 In-Patient Follow-up Chief Complaint: I am doing good Subjective: The patient noted that she feels good being here. She stated making lots of friends and enjoys the groups. 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 She noted that the signs could be more artistic. She stated that she would volunteer and charge no money because everybody here so good. She went several other topics and continued for most this visit. The patient remains grandiose, with significant thought disorder. Her sister confirmed that the patient was on no injections. Leading questions: The patient denied Depression and Anxiety. Denied SI or HI. Denied symptoms consistent with psychosis Sleep and Appetite: Fine. Interim History: Behavioral Changes: PRN meds/isolation/restraints/ change in status: None. Change in medical condition: No change. Change in medications: No change. Side effects from Medications: None. Objective- MSE: Alert and attentive. Orientation times three. Dressed and Groomed: Appropriately. Pleasant and cooperative. Psychomotor Activity: Normal. Speech: Normal in tone, quality, rapid, hyperverbal. Mood: Good. Affect: pleasant but disconnected from her thoughts. SI or HI: None. Perceptual disturbance: None. Thought Content: No over delusions noted. Thought Process: tangential, lose associations, flight od ideas Cognition: Mild recent memory impairment with confutations Judgment and Insight: Poor. AIMS: Normal. Labs: Reviewed Diagnosis: No change. Plan and recommendation: Continue current Medications. Increase Zyprexa to 7.5 mg HS and Depakote to 250 mg tid. Monitor MS and side effects of medications and adjust medications accordingly. Provide supportive psychotherapy. The patient provided psychoeducation. The patient to continue attending the shell activities. Medication Consent with explanation of risk/benefits and side effects: Explained and obtained
[2023-07-01] MEDS ORDERED: OLANZapine 7.5 MG TAB PO SCH (09:00)
--- NOTE | 2023-07-01 15:48 | P.PN ---
Progress Note - Text Progress Note Date: 07/01/23 In-Patient Follow-up Chief Complaint: I am trying not to talk too much Subjective: The patient noted that she is trying to make conversation short and too the point. She states that she was a shy person and held everything inside. She noted that her sister, who is younger to me was bossy. Now, she feels free and talking and not holding herself. She was still drifting and going one topic to other. The patient is attending groups and has been compliant with treatment recommendations. Leading questions: The patient denied depression. Admitted to Anxiety. Denied SI or HI. Denied symptoms consistent with psychosis Sleep and Appetite: Fine. Interim History: Behavioral Changes: PRN meds/isolation/restraints/ change in status: None. Change in medical condition: No change. Change in medications: No change. Side effects from Medications: None. Objective- MSE: Alert and attentive. Orientation times three. Dressed and Groomed: Appropriately. Pleasant and cooperative. Psychomotor Activity: Normal. Speech: Normal in tone, quality, hyperverbal, Mild rapid speech Mood: Fine. Affect: Expansive SI or HI: None. Perceptual disturbance: None. Thought Content: Mild Grandiose ideations noted No paranoia or delusional thinking noted. Thought Process: Flight of ideas with loose associations. Cognition: Intact Judgment and Insight: Good AIMS: Normal. Labs: No new labs Diagnosis: No change. Plan and recommendation: Continue current Medications. Increase Zyprexa to 5 mg bid. Monitor MS and side effects of medications and adjust medications accordingly. Provide supportive psychotherapy. The patient provided psychoeducation. The patient to continue attending the shell activities. Medication Consent with explanation of risk/benefits and side effects: Explained and obtained.
[2023-07-01] MEDS: OLANZapine 5 MG TAB PO SCH (22:21)
--- NOTE | 2023-07-02 17:32 | P.PN ---
Progress Note - Text Progress Note Date: 07/02/23 In-Patient Follow-up Chief Complaint: I am better Subjective: The patient noted that she is feeling good. The patient held meaningful goal directed conversation for 5-7 mints and then started talking about the person who came to her house to do the roof estimation. She continues to be very paranoid about this man and noted that she and her sister saw his picture on the internet and verified that he is felon and has a gun. She is afraid that he will try to enter her house. She is in danger if goes back home after discharge. She also stated that she signed some papers for him when he was at her house to look at the roof. She thinks he will steal her identity. At this stage she was loseing her trend of thoughts and her speech had become pressured. She has been compliant with treatment recommendations. She interacting with staff and peers well. Leading questions: The patient denied depression. Admitted to Anxiety. Denied SI or HI. Denied symptoms consistent with psychosis Sleep and Appetite: Fine. Interim History: Behavioral Changes: PRN meds/isolation/restraints/ change in status: None. Change in medical condition: No change. Change in medications: No change. Side effects from Medications: None. Objective- MSE: Alert and attentive. Orientation times three. Dressed and Groomed: Appropriately. Pleasant and cooperative. Psychomotor Activity: Normal. Speech: Normal in tone, quality, hyperverbal, pressured speech Mood: I feel good Affect: suspicious and worried. SI or HI: None. Perceptual disturbance: None. Thought Content: Paranoid ideations noted. No other delusional thinking noted. Thought Process: Loose associations. Cognition: Intact Judgment and Insight: Good AIMS: Normal. Labs: No new labs Diagnosis: No change. Plan and recommendation: Continue current Medications. Increase Zyprexa to 15 mg in divided doses. Increase Zyprexa to 5 mg bid. Monitor MS and side effects of medications and adjust medications accordingly. Provide supportive psychotherapy. The patient provided psychoeducation. The patient to continue attending the shell activities. Medication Consent with explanation of risk/benefits and side effects: Explained and obtained.
[2023-07-02] MEDS: OLANZapine 7.5 MG TAB PO SCH (21:15)
[2023-07-03] MEDS: OLANZapine 5 MG TAB PO SCH (09:48)
--- NOTE | 2023-07-03 17:20 | P.PN ---
Progress Note - Text Progress Note Date: 07/03/23 Interval history: Patient was seen resting in her bed and was directable and agreeable to speak with abstract writer. She is polite and engages in assessment. Thoughts are somewhat circumstantial but mostly coherent. Somewhat grandiose when talking about helping other patients on the unit. She reports fragmented sleep last night due to noise on the unit. At this time, patient denies any suicidal or homicidal ideation, intent or plan. Denies any auditory or visual hallucinations. Patient denies any side effects from the medications and has been compliant with meds. Mental status exam: General Appearance: Patient appears to be stated age, hair messy, dressed in clean casual attire Behavior: No agitated behavior. Patient is calm and directable. Speech: Patient's speech is fluent and non-pressured. Mood/Affect: Mood is improving mildly, affect is congruent. Suicidality/Homicidality: Patient denies having any suicidal or homicidal ideation intent or plan. Perceptions: Patient denies any auditory or visual hallucinations. Though content/process: She does not express any overtly fixed delusional thought content and thought process is circumstantial. Memory and concentration: AOX3, grossly intact for the purposes of this session Judgment and insight: Improving mildly Assessment/Plan: Continue with current diagnosis. Patient continues to meet criteria for inpatient psychiatric admission for symptom stabilization and safety. Increase Zyprexa to 7.5 mg BID for psychosis/mood. Monitor for medication compliance and for any psychotropic medication side effects. Will continue to monitor ongoing response to treatment. Encouraged participation in milieu.
[2023-07-03] MEDS: OLANZapine 7.5 MG TAB PO SCH (22:08)
--- NOTE | 2023-07-04 19:28 | P.PN ---
Progress Note - Text Progress Note Date: 07/04/23 Interval history: Patient was seen socializing with peers prior to mealtime and was agreeable to speak with show card writer. She is polite and engages in assessment. Thoughts are linear and coherent. She reports good mood, sleep and appetite. At this time, patient denies any suicidal or homicidal ideation, intent or plan. Denies any auditory or visual hallucinations. Patient denies any side effects from the medications and has been compliant with meds. No paranoid ideations expressed to me today. Mental status exam: General Appearance: Patient appears to be stated age, hair neat, showered, dressed in clean casual attire Behavior: No agitated behavior. Patient is calm and directable. Speech: Patient's speech is fluent and non-pressured. Mood/Affect: Mood is "good", affect is congruent, smiles broadly. Suicidality/Homicidality: Patient denies having any suicidal or homicidal ideation intent or plan. Perceptions: Patient denies any auditory or visual hallucinations. Though content/process: She does not express any overtly fixed delusional thought content and thought process is linear and coherent. Memory and concentration: AOX3, grossly intact for the purposes of this session Judgment and insight: Improving mildly Assessment/Plan: Continue with current diagnosis. Patient continues to meet criteria for inpatient psychiatric admission for symptom stabilization and safety. Continue Zyprexa 7.5 mg BID for psychosis/mood. Monitor for medication compliance and for any psychotropic medication side effects. Will continue to monitor ongoing response to treatment. Encouraged participation in milieu.
[2023-07-05] MEDS ORDERED: BENZOCAINE/MENTHOL LOZENG 1 EACH LOZENGE MUCOUS MEM PRN (19:31)
--- NOTE | 2023-07-05 20:21 | P.PN ---
Progress Note - Text Progress Note Date: 07/05/23 Interval history: Patient was seen watching TV with peers and was agreeable to speak with magazine writer. She is polite and engages in assessment. Thoughts are linear and coherent. She reports good mood, sleep and appetite, but complains of feeling grawgy on awakening in the mornings and feels the nighttime dose of the Zyprexa should be decreased. She would also like to switch the Depakote sprinkles to tablets so she doesn't have to mix the sprinkles at home. At this time, patient denies any suicidal or homicidal ideation, intent or plan. Denies any auditory or visual hallucinations. Patient denies any side effects from the medications and has been compliant with meds. No paranoid ideations expressed to me today. She reports dry mouth and will order Cepacol lozenges. Mental status exam: General Appearance: Patient appears to be stated age, hair neat, showered, dressed in clean casual attire Behavior: No agitated behavior. Patient is calm and directable. Speech: Patient's speech is fluent and non-pressured. Mood/Affect: Mood is "good", affect is congruent, smiles broadly. Suicidality/Homicidality: Patient denies having any suicidal or homicidal ideation intent or plan. Perceptions: Patient denies any auditory or visual hallucinations. Though content/process: She does not express any overtly fixed delusional thought content and thought process is linear and coherent. Memory and concentration: AOX3, grossly intact for the purposes of this session Judgment and insight: Improving mildly Assessment/Plan: Continue with current diagnosis. Patient continues to meet criteria for inpatient psychiatric admission for symptom stabilization and safety. Decrease Zyprexa from 7.5 mg BID to 7.5 mg daily in the AM and 5 mg QHS for psychosis/mood. Change Depakote sprinkles to tablets. Start Cepacol lozenges for dry mouth. Monitor for medication compliance and for any psychotropic medication side effects. Will continue to monitor ongoing response to treatment. Encouraged participation in milieu.
[2023-07-05] MEDS: DIVALPROEX 250 MG TABLET.DR PO SCH (21:53)
[2023-07-05] MEDS: OLANZapine 5 MG TAB PO SCH (21:53)
[2023-07-06] MEDS: OLANZapine 7.5 MG TAB PO SCH (09:05)
--- NOTE | 2023-07-06 11:54 | P.PN ---
Progress Note - Text Progress Note Date: 07/06/23 Interval history: Patient was seen near her room and was agreeable to speak with medical underwriter. She is polite and engages in assessment. Thoughts are linear and coherent. She reports good mood, sleep and appetite, denies feeling grawgy this morning. At this time, patient denies any suicidal or homicidal ideation, intent or plan. Denies any auditory or visual hallucinations. Patient denies any side effects from the medications and has been compliant with meds. No paranoid ideations expressed to me today, however she expresses desire to discontinue the psychotropic medications at some point in the future and hopes to only take the blood pressure medication and vitamins at some point. We discussed the importance of medication compliance and to not discontinue/change her medications without consulting with her outpatient psychiatrist. Mental status exam: General Appearance: Patient appears to be stated age, hair neat, showered, dressed in clean casual attire Behavior: No agitated behavior. Patient is calm and directable. Speech: Patient's speech is fluent and non-pressured. Mood/Affect: Mood is "good", affect is congruent. Suicidality/Homicidality: Patient denies having any suicidal or homicidal ideation intent or plan. Perceptions: Patient denies any auditory or visual hallucinations. Though content/process: She does not express any overtly fixed delusional thought content and thought process is linear and coherent. Memory and concentration: AOX3, grossly intact for the purposes of this session Judgment and insight: Improving mildly Assessment/Plan: Continue with current diagnosis. Patient continues to meet criteria for inpatient psychiatric admission for symptom stabilization and safety. Continue Zyprexa 7.5 mg daily in the AM and 5 mg QHS for psychosis/mood. Continue Depakote 250 mg TID for mood stabilization. Depakote level ordered for tomorrow morning 07/07/23. Monitor for medication compliance and for any psychotropic medication side effects. Will continue to monitor ongoing response to treatment. Encouraged participation in milieu. Consider discharge tomorrow if patient continues to stabilize.
--- NOTE | 2023-07-07 14:52 | P.PN ---
Progress Note - Text Progress Note Date: 07/07/23 Follow-up Mediation Review Chief Complaint: I am feeling dizzy, I felt it after getting up from chair Subjective: The patient informed this when she was coming out of the [facility]. The patient noted she took 4 pills in the morning. She further indicated that it happened last night after taking Zyprexa. She thinks it is due to Zyprexa. Over the weekend, the covering doctor did reduce the Zyprexa to 12.5 mg daily in divided doses but the patient is still having orthostatic drop. Explained patient that the dose will be further adjusted to prevent fall risk and optimize the stability of MS. Asked her to slowly get up from sitting and lying down positions and wait before walking. The patient has been attending the groups. The participation is good. The interaction with staff and peers is good. The patient is compliant with treatment recommendations. Leading questions: The patient denied Depression and Anxiety. Denied SI or HI. Denied symptoms consistent with psychosis Sleep and Appetite: Good. Change in family/ living/job/financial/daily routine: No change. Change in medical condition: No change. Change in medications: No change. Side effects from Medications: None. Objective- MSE: Alert and attentive. Orientation times three. Dressed and Groomed: Appropriately. Pleasant and cooperative. Psychomotor Activity: Normal. Speech: Normal in tone, quality and quantity. Mood: Anxious. Affect: Consistent with mood. SI or HI: None. Perceptual disturbance: None. Thought Content: No paranoia or other delusional thinking noted. Thought Process: Normal. Cognition: Intact Judgment and Insight: Fair. AIMS: Normal. Labs: No new labs. Diagnosis: Plan and Recommendations: Continue current Medications. Monitor MS and side effects of medications and adjust medications accordingly. Provide supportive psychotherapy. The patient provided psychoeducation and advised The patient to attend shell activities. Medication Consent with explanation of risk/benefits and side effects: Explained and obtained.
[2023-07-07] MEDS: OLANZapine 5 MG TAB PO SCH (21:15)
[2023-07-08 07:14] VITALS: BP 133/70; PULSE 77; RESP 14; TEMP 97.8
--- NOTE | 2023-07-08 17:14 | P.DS ---
Providers Date of admission: 06/27/23 18:13 Expected date of discharge: 07/08/23 Attending physician: Tony Pham MD Consults: 06/27/23 13:19 Consult Physician Urgent Consulting Provider: Larry Narvaez Consult Reason/Comments: ams Do you want consulting provider notified?: Already Contacted 06/27/23 18:45 Consult Physician Routine Consulting Provider: [employer] Consult Reason/Comments: H & P Do you want consulting provider notified?: Yes Primary care physician: Mary Turpin - Discharge Diagnosis(es) (1) Schizoaffective disorder, bipolar type Current Visit: Yes Status: Acute Priority: High Hospital Course: Discharge Summary HPI: this is a psychiatric assessment on the [id number] female who was hospitalized for mental status changes According to the sister the patient has had a fall for which she was hospitalized about a month ago Patient Susanstarted to show peers of confusion and some delusional thinking There also appears to be documentation from Dr. MTZ regarding patient diagnosed with psychosis years ago and schizophrenia? 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 Hospital Course: After admission, the patient was involved in pharmacotherapy, shell milieu, and individual psychodynamic psychotherapy. The patient was started on Zyprexa 5 mg bid and Depakote 250 mg bid. The dose was titrated to obtain the desire effects. The patient tolerated medications well without any side effects except mild light headedness. The dose of Zyprexa was titrated down. Her orthostatic BP was taken. It stabilized. The patient was also involved in shell activities. The patient attended the groups and participated well. The patient interacted with peers and staff well. The patient slowly started showing improvement. The hospital course was uneventful. The patient symptoms of depression, suicidal and homicidal ideations abated. The psychosis improved. The patient was stable to be discharged to out-patient care. The patient did not have any guns or weapons in possession at home. MSE: Reveals a elderly female who currently appears in no acute physical distress Patient agreed to talk as a signwriter Patient is in her bathrobe and had come oriented to what she has just completed taking a shower General Appearance: Patient appears to be stated age is alert, and attempts to cooperate. Patient appears to have fair hygiene and grooming. Behavior: Patient is standing without any agitated behavior. Speech: Patient's speech is fluent and Circumstantial Mood/Affect: patient reports that she has a history of anxiety but that she feels fine at this time Suicidality/Homicidality: Patient denies having any homicidal ideation intent or plan. Denies any suicidal ideations intent or plan at this time Perceptions: No auditory or visual hallucinations Though content/process: There is no evidence of any delusional thought content and thought process is abstract Memory and concentration: AOX3, grossly intact for the purposes of this session. Judgment and insight: impaired Diagnosis: Schizoaffective Disorder, bipolar type Plan: The patient to be discharged today. The patient has attained good improvement since admission. He is stable to be followed as an outpatient. The patient is not suicidal or Homicidal. He does not pose any harm to self or others. The patient remains at a greater risk of self-harm or harm to others than general population on a chronic basis due to psychiatric illness and substance abuse. The patient will continue taking following medication post discharge. The importance of medication compliance and maintaining regular appointments at psychiatric out-pt and PCP clinic was explained and encouraged. The understood and agreed with the recommendations. flat screen worker to arrange for and conduct family meeting to ensure safety upon discharge and answer any questions. The dialysis social worker to arrange for patients follow-up appointments at [facility] for psychiatric care along with follow-up with PCP. The patient provided psychoeducation. Advised to call 911 or go to nearest ED or call this hospital in case of acute worsening of symptomatology, severe side effects or having suicidal, homicidal thoughts and feeling unsafe at home. Patient Condition at Discharge: Stable Plan - Discharge Summary New Discharge Prescriptions: New OLANZapine [ZyPREXA] 5 mg PO BID 30 Days #60 tab Artificial Tears-Hypromellose [Artificial Tear Drops] 2 drops BOTH EYES TID PRN ml PRN Reason: Dry Eye(S) Divalproex [Depakote] 250 mg PO TID 30 Days #90 tab Continue Cholecalciferol [Vitamin D3 (125 Mcg = 5000 Iu)] 125 mcg PO DAILY amLODIPine [Norvasc] 5 mg PO DAILY Discontinued OLANZapine [ZyPREXA] 2.5 mg PO DAILY PRN PRN Reason: acute anxiety OLANZapine [ZyPREXA] 5 mg PO HS #60 tab Discharge Medication List Cholecalciferol [Vitamin D3 (125 Mcg = 5000 Iu)] 125 mcg PO DAILY 06/12/23 [History] amLODIPine [Norvasc] 5 mg PO DAILY 06/12/23 [History] Artificial Tears-Hypromellose [Artificial Tear Drops] 2 drops BOTH EYES TID PRN ml 07/08/23 [Rx] Divalproex [Depakote] 250 mg PO TID 30 Days #90 tab 07/08/23 [Rx] OLANZapine [ZyPREXA] 5 mg PO BID 30 Days #60 tab 07/08/23 [Rx] Follow up Appointment(s)/Referral(s): [facility] [Outside] - 07/10/23 1:00 pm (07/10/2023 1:00PM - 2:30PM VICKI BECERRA 07/16/2023 1:30PM - 2:00PM FELECIA ENNIS) Mary Turpin MD [Primary Care Provider] - 1 Week Patient Instructions/Handouts: Schizophrenia (DC), Generalized Anxiety Disorder (ED) Activity/Diet/Wound Care/Special Instructions: Avoid the use of street drugs and alcohol. Take all medications as prescribed. When you are in need of refills on your medications, please contact your medical provider and/or outpatient psychiatrist/provider to have this done. Please go to your scheduled outpatient appointment for aftercare treatment. If symptoms return or become worse, call the crisis line at and/or go to the nearest emergency room for evaluation. National Suicide Hotline 988 Discharge Disposition: HOME SELF-CARE
== END 2023-07-08 19:20 | disposition home or self-care (01) | DRG 885 ==
LOC: EC 18:55 → 3MHU 06-27 18:13
PROVIDERS: ADMIT Psychiatry & Neurology Psychiatry; ATTEND Psychiatry & Neurology Psychiatry
DX: F25.0 Schizoaffective disorder, bipolar type (principal); E03.9 Hypothyroidism, unspecified; F06.30 Mood disorder due to known physiological condition, unspecified; F43.23 Adjustment disorder with mixed anxiety and depressed mood; I10 Essential (primary) hypertension; Z79.899 Other long term (current) drug therapy; Z11.52 Encounter for screening for COVID-19
CPT/HCPCS: 36415; 80053; 80061; 80143; 80179; 80306; 80320; 81001; 82075; 82140; 83036; 83735; 84100; 84439; 84443; 85025; 87635; 93005; 96360; 96361; 96372; 99285

== ENCOUNTER 2024-01-22 09:36 | Emergency (ER) | payer MEDICARE ==
--- NOTE | 2024-01-22 10:23 | ED ---
General Adult HPI - General Chief complaint: Fall Stated complaint: Fall Time Seen by Provider: 01/22/24 09:59 Source: patient, EMS, RN notes reviewed Mode of arrival: EMS Limitations: no limitations - History of Present Illness Initial comments: 74-year-old female presents to the emergency department for evaluation of fall. Patient states that she has not been sleeping well over the past few days. She went into the bathroom where she slid down onto her bottom. She denies hitting her head. She is not on blood thinners. She also reports that she has not been eating for the past 2 days. According to the patient's sister she has a recent psychiatric history and was admitted earlier this year. Patient's sister reports that she displaying similar symptoms to when she was admitted then. Her sister also reports that she was recently weaned off of her psychiatric medications because she was doing well. She is currently not taking any medica tions for her mental health. 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 - Related Data Home Medications Medication Instructions Recorded Confirmed Cholecalciferol [Vitamin D3 (125 125 mcg PO DAILY 06/12/23 01/22/24 Mcg = 5000 Iu)] amLODIPine BES/OLMESARTAN MED 1 tab PO DAILY 01/22/24 01/22/24 [amLODIPine BES/OLMESARTAN MED 10-20 mg] Allergies Allergy/AdvReac Type Severity Reaction Status Date / Time ibuprofen [From Motrin] Allergy Face Verified 01/22/24 14:09 Swelling oxaprozin [From Daypro] Allergy Unknown Verified 01/22/24 14:09 Penicillins Allergy Face Verified 01/22/24 14:09 Swelling Review of Systems ROS Statement: Those systems with pertinent positive or pertinent negative responses have been documented in the HPI. ROS Other: All systems not noted in ROS Statement are negative. Past Medical History Past Medical History: Hypertension Additional Past Medical History / Comment(s): Fall with head injury 05/21/23 History of Any Multi-Drug Resistant Organisms: None Reported Past Surgical History: Cholecystectomy, Heart Catheterization With Stent Past Anesthesia/Blood Transfusion Reactions: No Reported Reaction Date of Last Stent Placement:: unknown Past Psychological History: Anxiety, Depression, Schizophrenia Smoking Status: Never smoker Past Alcohol Use History: Rare Past Drug Use History: Marijuana General Exam Limitations: no limitations General appearance: alert, in no apparent distress Head exam: Present: atraumatic, normocephalic, normal inspection Eye exam: Present: normal appearance, PERRL, EOMI. Absent: scleral icterus, conjunctival injection, periorbital swelling ENT exam: Present: normal exam, mucous membranes moist Neck exam: Present: normal inspection. Absent: tenderness, meningismus, lymphadenopathy Respiratory exam: Present: normal lung sounds bilaterally. Absent: respiratory distress, wheezes, rales, rhonchi, stridor Cardiovascular Exam: Present: regular rate, normal rhythm, normal heart sounds. Absent: systolic murmur, diastolic murmur, rubs, gallop, clicks GI/Abdominal exam: Present: soft. Absent: distended, tenderness, guarding, rebound, rigid Extremities exam: Present: normal inspection, full ROM, normal capillary refill. Absent: tenderness, pedal edema, joint swelling, calf tenderness Course Vital Signs 01/22/24 01/22/24 09:51 11:55 Temperature 97.8 F Pulse Rate 95 94 Respiratory 20 20 Rate Blood Pressure 134/76 134/80 O2 Sat by Pulse 95 97 Oximetry Medical Decision Making - Medical Decision Making Was pt. sent in by a medical professional or institution (, PA, SELLING UNDERWRITER, urgent care, hospital, or fdc...) When possible be specific @ -No Did you speak to anyone other than the patient for history (EMS, parent, family, police, friend...)? What history was obtained from this source @ -Patient's sister provided some of the history of this patient Did you review nursing and triage notes (agree or disagree)? Why? @ -I reviewed and agree with nursing and triage notes Were old charts reviewed (outside hosp., previous admission, EMS record, old EKG, old radiological studies, urgent care reports/EKG's, fdc records)? Report findings @ -No old charts were reviewed Differential Diagnosis (chest pain, altered mental status, abdominal pain women, abdominal pain men, vaginal bleeding, weakness, fever, dyspnea, syncope, headache, dizziness, GI bleed, back pain, seizure, CVA, palpatations, mental hea lth, musculoskeletal)? @ -Differential Mental Health Depression, anxiety, bipolar, psychosis, schizophrenia, borderline personality, situational depression, adjustment disorder, behavioral disorder, brain tumor, malingering, substance abuse, encephalopathy, medication reaction, dementia, hypothyroidism, degenerative neurologic disorder, lupus.... This is not meant to be all-inclusive list EKG interpreted by me (3pts min.). @ -EKG at 1026 shows sinus rhythm rate 83, OK 148, QRS 97, QTQTc [id number] X-rays interpreted by me (1pt min.). @ -None done CT interpreted by me (1pt min.). @ -CT brain and C-spine shows no evidence of acute process U/S interpreted by me (1pt. min.). @ -None done What testing was considered but not performed or refused? (CT, X-rays, U/S, labs)? Why? @ -None What meds were considered but not given or refused? Why? @ -None Did you discuss the management of the patient with other professionals (professionals i.e. , PA, SELLING UNDERWRITER, lab, RT, psych nurse, health care social worker, criminal lawyer, teacher, grants officer, immigration case worker)? Give summary @ -Management discussed with EPS, recommend inpatient treatment patient will be transferred to geriatric psychiatric facility Was smoking cessation discussed for >3mins.? @ -No Was critical care preformed (if so, how long)? @ -No Were there social determinants of health that impacted care today? How? (Homelessness, low income, unemployed, alcoholism, drug addiction, transportation, low edu. Level, literacy, decrease access to med. care, prison, rehab)? @ -No Was there de-escalation of care discussed even if they declined (Discuss DNR or withdrawal of care, Hospice)? DNR status @ -No What co-morbidities impacted this encounter? (DM, HTN, Smoking, COPD, CAD, Cancer, CVA, ARF, Chemo, Hep., AIDS, mental health diagnosis, sleep apnea, morbid obesity)? @ -None Was patient admitted / discharged? Hospital course, mention meds given and route, prescriptions, significant lab abnormalities, going to OR and other pertinent info. @ -Transferred for geriatric psych. Patient presented to the emergency department for evaluation of fall. Patient's sister states that she has not been sleeping or eating well. She has been off of her psychiatric medications recently as she was doing better. Her sister noticed symptoms developing over the past 1 week or so. Patient also admits to increased stress during this time. Laboratory studies were obtainedThere is no significant leukocytosis, hemoglobin stable; normal coagulation studies; CMP nonactionable; UA shows trace protein, trace ketones, large leukocyte esterase, 78 WBCs she will be treated for urinary tract infection. UDS negative. Due to the patient states she was evaluated by emergency psychiatric services and inpatient treatment was recommended. Patient will be transferred to a geriatric psych facility. Petition filled by patients sister. Case discussed with Dr. Gómez. Undiagnosed new problem with uncertain prognosis? @ -No Drug Therapy requiring intensive monitoring for toxicity (Heparin, Nitro, Insulin, Cardizem)? @ -No Were any procedures done? @ -No Diagnosis/symptom? @ -Psychosis, fall Acute, or Chronic, or Acute on Chronic? @ -Acute Uncomplicated (without systemic symptoms) or Complicated (systemic symptoms)? @ -Uncomplicated Side effects of treatment? @ -No Exacerbation, Progression, or Severe Exacerbation? @ -No Poses a threat to life or bodily function? How? (Chest pain, [place], VA, pneumonia, PE, COPD, DKA, ARF, appy, cholecystitis, CVA, Diverticulitis, Homicidal, Suicidal, threat to staff... and all critical care pts) @ -No - Lab Data Result diagrams: 01/22/24 10:23 01/22/24 10:23 Lab Results 01/22/24 01/22/24 01/22/24 Range/Units 10:23 10:23 10:24 WBC 8.7 (3.8-10.6) k/uL RBC 4.69 (3.80-5.40) m/uL Hgb 14.3 (11.4-16.0) gm/dL Hct 44.6 (34.0-46.0) % MCV 95.2 (80.0-100.0) fL MCH 30.5 (25.0-35.0) pg MCHC 32.1 (31.0-37.0) g/dL RDW 13.0 (11.5-15.5) % Plt Count 204 (150-450) k/uL MPV 7.2 Neutrophils % 89 % Lymphocytes % 7 % Monocytes % 3 % Eosinophils % 1 % Basophils % 0 % Neutrophils # 7.8 H (1.3-7.7) k/uL Lymphocytes # 0.6 L (1.0-4.8) k/uL Monocytes # 0.3 (0-1.0) k/uL Eosinophils # 0.0 (0-0.7) k/uL Basophils # 0.0 (0-0.2) k/uL PT 11.2 (10.0-12.5) sec INR 1.0 (<1.2) APTT 24.8 (22.0-30.0) sec Sodium 138 (137-145) mmol/L Potassium 4.1 (3.5-5.1) mmol/L Chloride 107 (98-107) mmol/L Carbon Dioxide 25 (22-30) mmol/L Anion Gap 6 mmol/L BUN 18 H (7-17) mg/dL Creatinine 0.64 (0.52-1.04) mg/dL Est GFR (CKD-EPI)AfAm >90 (>60 ml/min/1.73 sqM) Est GFR (CKD-EPI)NonAf 89 (>60 ml/min/1.73 sqM) Glucose 116 H (74-99) mg/dL Calcium 10.1 (8.4-10.2) mg/dL Total Bilirubin 2.3 H (0.2-1.3) mg/dL AST 19 (14-36) U/L ALT 14 (4-34) U/L Alkaline Phosphatase 66 (38-126) U/L Total Protein 6.7 (6.3-8.2) g/dL Albumin 4.5 (3.5-5.0) g/dL Urine Color Urine Appearance (Clear) Urine pH (5.0-8.0) Ur Specific [place] (1.001-1.035) Urine Protein (Negative) Urine Glucose (UA) (Negative) Urine Ketones (Negative) Urine Blood (Negative) Urine Nitrite (Negative) Urine Bilirubin (Negative) Urine Urobilinogen (<2.0) mg/dL Ur Leukocyte Esterase (Negative) Urine WBC (0-5) /hpf Ur Squamous Epith Cells (0-4) /hpf Calcium Oxalate Crystal (None) /hpf Amorphous Sediment (None) /hpf Hyaline Casts (0-2) /lpf Urine Mucus (None) /hpf Urine Yeast (Budding) (None) /hpf Urine Opiates Screen (NotDetected) Ur Oxycodone Screen (NotDetected) Urine Methadone Screen (NotDetected) Ur Barbiturates Screen (NotDetected) U Tricyclic Antidepress (NotDetected) Ur Phencyclidine Scrn (NotDetected) Ur Amphetamines Screen (NotDetected) U Methamphetamines Scrn (NotDetected) U Benzodiazepines Scrn (NotDetected) Urine Cocaine Screen (NotDetected) U Marijuana (THC) Screen (NotDetected) 01/22/24 01/22/24 Range/Units 11:51 15:26 WBC (3.8-10.6) k/uL RBC (3.80-5.40) m/uL Hgb (11.4-16.0) gm/dL Hct (34.0-46.0) % MCV (80.0-100.0) fL MCH (25.0-35.0) pg MCHC (31.0-37.0) g/dL RDW (11.5-15.5) % Plt Count (150-450) k/uL MPV Neutrophils % % Lymphocytes % % Monocytes % % Eosinophils % % Basophils % % Neutrophils # (1.3-7.7) k/uL Lymphocytes # (1.0-4.8) k/uL Monocytes # (0-1.0) k/uL Eosinophils # (0-0.7) k/uL Basophils # (0-0.2) k/uL PT (10.0-12.5) sec INR (<1.2) APTT (22.0-30.0) sec Sodium (137-145) mmol/L Potassium (3.5-5.1) mmol/L Chloride (98-107) mmol/L Carbon Dioxide (22-30) mmol/L Anion Gap mmol/L BUN (7-17) mg/dL Creatinine (0.52-1.04) mg/dL Est GFR (CKD-EPI)AfAm (>60 ml/min/1.73 sqM) Est GFR (CKD-EPI)NonAf (>60 ml/min/1.73 sqM) Glucose (74-99) mg/dL Calcium (8.4-10.2) mg/dL Total Bilirubin (0.2-1.3) mg/dL AST (14-36) U/L ALT (4-34) U/L Alkaline Phosphatase (38-126) U/L Total Protein (6.3-8.2) g/dL Albumin (3.5-5.0) g/dL Urine Color Yellow Urine Appearance Cloudy H (Clear) Urine pH 6.0 (5.0-8.0) Ur Specific [place] 1.023 (1.001-1.035) Urine Protein Trace H (Negative) Urine Glucose (UA) Negative (Negative) Urine Ketones Trace H (Negative) Urine Blood Negative (Negative) Urine Nitrite Negative (Negative) Urine Bilirubin Negative (Negative) Urine Urobilinogen <2.0 (<2.0) mg/dL Ur Leukocyte Esterase Large H (Negative) Urine WBC 78 H (0-5) /hpf Ur Squamous Epith Cells 5 H (0-4) /hpf Calcium Oxalate Crystal Occasional H (None) /hpf Amorphous Sediment Rare H (None) /hpf Hyaline Casts 13 H (0-2) /lpf Urine Mucus Many H (None) /hpf Urine Yeast (Budding) Rare H (None) /hpf Urine Opiates Screen Not Detected (NotDetected) Ur Oxycodone Screen Not Detected (NotDetected) Urine Methadone Screen Not Detected (NotDetected) Ur Barbiturates Screen Not Detected (NotDetected) U Tricyclic Antidepress Not Detected (NotDetected) Ur Phencyclidine Scrn Not Detected (NotDetected) Ur Amphetamines Screen Not Detected (NotDetected) U Methamphetamines Scrn Not Detected (NotDetected) U Benzodiazepines Scrn Not Detected (NotDetected) Urine Cocaine Screen Not Detected (NotDetected) U Marijuana (THC) Screen Not Detected (NotDetected) Disposition Clinical Impression: Acute psychosis, Fall Disposition: TRANSFER TO PSYCH HOSP/UNIT Condition: Stable Is patient prescribed a controlled substance at d/c from ED?: No Referrals: Mary Turpin MD [Primary Care Provider] - 1-2 days
[2024-01-22 10:36] LABS: Basophils % (A) 0 %; Eosinophils % (A) 1 %; HCT 44.6 % (34.0-46.0); HGB 14.3 gm/dL (11.4-16.0); Lymphocytes # (A) 0.6 k/uL (1.0-4.8); Lymphocytes % (A) 7 %; MCH 30.5 pg (25.0-35.0); MCHC 32.1 g/dL (31.0-37.0); MCV 95.2 fL (80.0-100.0); Mean Platelet Volume 7.2; Monocytes # (A) 0.3 k/uL (0-1.0); Monocytes % (A) 3 %; Neutrophils # (A) 7.8 k/uL (1.3-7.7); Neutrophils % (A) 89 %; Platelet Count 204 k/uL (150-450); RBC 4.69 m/uL (3.80-5.40); WBC 8.7 k/uL (3.8-10.6)
[2024-01-22 10:42] LABS: ALT 14 U/L (4-34); AST 19 U/L (14-36); African American GFR (CKD) >90 (>60 ml/min/1.73 sqM); Albumin 4.5 g/dL (3.5-5.0); Alkaline Phosphatase 66 U/L (38-126); Anion Gap 6 mmol/L; Blood Urea Nitrogen 18 mg/dL (7-17); Calcium 10.1 mg/dL (8.4-10.2); Carbon Dioxide 25 mmol/L (22-30); Chloride 107 mmol/L (98-107); Glucose 116 mg/dL (74-99); Non-African American GFR(CKD) 89 (>60 ml/min/1.73 sqM); Potassium 4.1 mmol/L (3.5-5.1); Sodium 138 mmol/L (137-145); Total Bilirubin 2.3 mg/dL (0.2-1.3); Total Protein 6.7 g/dL (6.3-8.2)
[2024-01-22 10:43] LABS: Partial Thromboplastin Time 24.8 sec (22.0-30.0); Prothrombin Time 11.2 sec (10.0-12.5)
--- NOTE | 2024-01-22 10:43 | CT ---
EXAMINATION TYPE: CT brain luzine wo con DATE OF EXAM: 01/22/2024 COMPARISON: CT brain dated 05/23/2023 CLINICAL INDICATION: Female, 74 years old with history of fall; PHH, FALL, HEAD/NECK PAIN TECHNIQUE: CT scan of the head and cervical spine are performed without contrast. CT DLP: [address] CTDI: mGy Automated exposure control for dose reduction was used. Findings: Head CT: Ventricles, basal cisterns and sulci over convexities within normal limits and there is no mass, mass effect or shift of midline structures. No abnormal density is seen throughout the brain parenchyma and there is no acute intra or extra-axia l hemorrhage. Posterior fossa including the brainstem, fourth ventricle and cerebellar pontine angles are grossly n ormal. The intraorbital contents appear normal and symmetric. Visualized paranasal sinuses are well aerated. CT cervical spine: Craniovertebral junction relationships and prevertebral soft tissues are normal. The cervical vertebral segments are normal in height and alignment and there is no fracture subluxati on. There is moderate disc space narrowing and spondylosis from C3 through C7 indicating moderate degener ative disc disease.. There is moderate degenerative change of the uncovertebral joints from C3 throug h C7. The bony cervical canal is widely patent and there is no bony encroachment of the neural foramina. The paraspinal soft tissues unremarkable. IMPRESSION: 1. Head CT: No acute bleed or mass effect. 2. CT cervical spine: No acute trauma. 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 [facility], Workstation: [id number] 01/22/2024 10:41 AM
[2024-01-22 12:52] LABS: Amorphous Sediment,Urine Rare /hpf; Appearance,Urine Cloudy (Clear); Bilirubin,Urine Negative (Negative); Blood,Urine Negative (Negative); Budding Yeast,Urine Rare /hpf; Calcium Oxalate Crystals,Urine Occasional /hpf; Color,Urine Yellow; Glucose,Urine (UA) Negative (Negative); Hyaline Casts,Urine 13 /lpf (0-2); Ketones,Urine Trace (Negative); Leukocyte Esterase,Urine Large (Negative); Mucus,Urine Many /hpf; Nitrite,Urine Negative (Negative); Protein,Urine Trace (Negative); Specific Gravity,Urine 1.023 (1.001-1.035); Squamous Epithelial Cell,Urine 5 /hpf (0-4); Urobilinogen,Urine <2.0 mg/dL (<2.0); WBC,Urine 78 /hpf (0-5)
[2024-01-22 15:44] LABS: Amphetamine Screen,Urine Not Detected (NotDetected); Barbiturate Screen,Urine Not Detected (NotDetected); Benzodiazepines Screen,Urine Not Detected (NotDetected); Cocaine Screen,Urine Not Detected (NotDetected); Methadone Screen, Urine Not Detected (NotDetected); Opiate Screen,Urine Not Detected (NotDetected); Oxycodone Screen, Urine Not Detected (NotDetected); Phencyclidine Screen,Urine Not Detected (NotDetected); Tricyclic Antidepressant,Urine Not Detected (NotDetected); Urn Cannabinoid Scrn Not Detected (NotDetected)
[2024-01-22] MEDS: LOPERAMIDE 2 MG CAP PO STA (16:18)
[2024-01-22] MEDS: CEPHALEXIN 250 MG CAP PO STA (16:19)
[2024-01-22] MEDS: CEPHALEXIN 250 MG CAP PO SCH (21:29)
[2024-01-23] MEDS: LOPERAMIDE 2 MG CAP PO STA (06:24)
[2024-01-25 00:17] VITALS: BP 106/67; PULSE 81; RESP 14; TEMP 97.7
== END 2024-01-23 07:07 ==
LOC: EC 09:36
DX: F23 Brief psychotic disorder (principal); Z88.0 Allergy status to penicillin; Z88.6 Allergy status to analgesic agent; Z88.8 Allergy status to other drugs, medicaments and biological substances; W19.XXXA Unspecified fall, initial encounter
CPT/HCPCS: 36415; 70450; 72125; 80053; 80306; 81001; 82075; 85025; 85610; 85730; 87086; 87635; 93005; 99285

== ENCOUNTER → 2024-04-27 | Outpatient (CLI) | payer MEDICARE ==
--- NOTE | 2024-04-27 23:50 | MR ---
EXAMINATION TYPE: MR brain wo con DATE OF EXAM: 04/27/2024 5:57 PM COMPARISON: 01/22/2024. CLINICAL INDICATION: Female, 74 years old with history of I63.9 CEREBRAL INFARCTION, UNSPECIFIED; PHH , Head trauma from a fall April 2023, Memory loss, Evaluate for CVA TECHNIQUE: Multi planar, multi sequence imaging was performed through the brain including: T1, T2, In version recovery, Diffusion weighted imaging, and gradient echo imaging. No gadolinium was given. FINDINGS: The dangelo-white junctions, ventricular system, basal cisterns appear unremarkable. Scattered foci of high T2 signal intensity are seen within the periventricular white matter. Midline structures show n o abnormality. Diffusion-weighted imaging shows no evidence of restricted diffusion. The susceptibili ty weighted images do not reveal any evidence for micro-hemorrhage. The bone marrow signal is within normal limits. Paranasal sinuses and mastoid air cells: No significant paranasal sinus disease. Visualized orbits: Orbital contents are intact. IMPRESSION: 1. No evidence of intracranial mass or acute/subacute infarct. 2. Nonspecific white matter changes, likely secondary to small vessel ischemic disease. [facility], , 04/27/2024 11:48 PM
== END | disposition home or self-care (01) ==
LOC: RADMRIMAIN 16:59
PROVIDERS: ATTEND Psychiatry & Neurology Neurology
DX: I63.9 Cerebral infarction, unspecified (principal); R90.82 White matter disease, unspecified
CPT/HCPCS: 70551